=== PATIENT | male | born 1970 | race Caucasian/White ===

== ENCOUNTER 2022-12-21 06:11 | Inpatient (IN) | payer MEDICAID, SELFPAY ==
[2022-12-21] VITALS (46 sets, daily range): BP systolic 53–160; BP diastolic 23–68; PULSE 57–109; RESP 20–39; TEMP 32–37.8; O2SAT 90–100; BMI 26.9
--- NOTE | 2022-12-21 | ECG_ITS ---
Test Reason : high trop Blood Pressure : / mmHG Vent. Rate : 105 BPM Atrial Rate : 105 BPM P-R Int : 154 ms QRS Dur : 088 ms QT Int : 404 ms P-R-T Axes : 068 048 060 degrees QTc Int : 533 ms Sinus tachycardia Prolonged QT Abnormal ECG When compared with ECG of 21-DEC-2022 06:16, Vent. rate has increased BY 36 BPM QRS duration has decreased Borderline criteria for Inferior infarct are no longer Present ST no longer depressed in Anterolateral leads T wave inversion no longer evident in Inferior leads Referred By: Av Lancaster Electronically Signed By:REY LANGE MD
--- NOTE | ~2022-12-21 | CT_ITS ---
EXAMINATION: CT HEAD WITHOUT CONTRAST CLINICAL INFORMATION: Status epilepticus COMPARISON: CT brain 12/23/2022 TECHNIQUE: Contiguous axial imaging was performed from the skull base to vertex without intravenous administration of contrast. This CT examination was performed using dose optimization techniques as appropriate, variously including the following: *Automated exposure control *Adjustment of mA and/or kV according to patient size (this includes techniques or standardized protocols for targeted exams where dose is matched to indication/reason for exam; i.e. extremities or head) *Use of iterative reconstruction technique DLP: 679 mGy-cm FINDINGS: There is no acute intra-axial, extra-axial bleed, masses or midline shift. There is no acute infarction evolution. There is no edema. Carrera to white matter differentiation is maintained normal. The lateral ventricles are symmetrical in size and configuration without enlargement. Bone windows reveal no calvarial abnormality. There is midline deep scalp hyperdensity likely contusion but no calvarial fracture is best visualized on sagittal image 76/8. Bilateral paranasal sinuses and mastoid air cells are well-aerated with diffuse mucoperiosteal thickening sphenoid and right posterior ethmoid sinuses. Minimal mucoperiosteal thickening right maxillary sinus is noted as well. CT/CT head/brain wo IV con IMPRESSION: 1. No acute intracranial process seen. 2. There is midline deep scalp contusion without calvarial fracture. 3. Chronic bilateral sphenoid and right posterior ethmoid sinus inflammatory changes.
--- NOTE | ~2022-12-21 | XR_ITS ---
EXAMINATION: XR CHEST CLINICAL INFORMATION: Hypoxia COMPARISON: 12/21/2022 TECHNIQUE: Frontal view of the chest was obtained. FINDINGS: The ET tube is present about 8 cm above the mark and probably should be advanced. Right IJ catheter with tip in SVC. NG tube with tip at the junction and should be advanced. Heart size normal. No evidence of CHF. Some minimal left basilar atelectasis is present. No consolidation. No pleural effusions. XR/XR chest 1V IMPRESSION: ET tube 8 cm above the mark and should be advanced. NG tube at GE junction and should be advanced.
--- NOTE | ~2022-12-21 | CT_ITS ---
EXAMINATION: CT HEAD WITHOUT CONTRAST CLINICAL INFORMATION: Altered mental status COMPARISON: None TECHNIQUE: Contiguous axial imaging was performed from the skull base to vertex without intravenous administration of contrast. This CT examination was performed using dose optimization techniques as appropriate, variously including the following: *Automated exposure control *Adjustment of mA and/or kV according to patient size (this includes techniques or standardized protocols for targeted exams where dose is matched to indication/reason for exam; i.e. extremities or head) *Use of iterative reconstruction technique DLP: 892 mGy-cm FINDINGS: No acute hemorrhage or mass effect. Carrera/white matter differentiation is maintained. Cisterns are unremarkable. The ventricular system is normal in size. No extra-axial collections observed. Mastoids are well aerated. No calvarial disruption. There is eccentric mucosal thickening/opacification of sphenoid and ethmoid sinuses with some opacification of the nasal cavities. Bilateral cerumen noted in the external auditory canals. CT/CT head/brain wo IV con IMPRESSION: No evidence for acute process. Paranasal sinus opacification as noted above. Opacification of the nasal cavities.
--- NOTE | ~2022-12-21 | MR_ITS ---
EXAMINATION: MR BRAIN WITHOUT CONTRAST CLINICAL INFORMATION: Persistent encephalopathy. COMPARISON: Head CT 12/28/2022 TECHNIQUE: Multiplanar, multisequence imaging of the brain was performed without intravenous contrast. FINDINGS: There is bilaterally symmetric restricted diffusion within the centrum semiovale ovale extending into the cole radiata, posterior limbs of the internal capsule and adjacent gangliocapsular structures with additional restricted diffusion also noted within the posterior corpus callosum. Mildly expansile T2/FLAIR hyperintensity is seen within the bilateral posterior parietal, temporal, and occipital lobes. The ventricles are normal in size without hydrocephalus. The major arterial flow voids are preserved at the skull base. There is fluid in the mastoids and paranasal sinus mucosal thickening. MR/MR head/brain wo con IMPRESSION: Bilateral symmetric restricted diffusion within the centrum semiovale ovale extending into the cole radiata, posterior limbs of the internal capsule, and adjacent gangliocapsular structures. Additional restricted diffusion is seen within the posterior corpus callosum. Expansile T2/FLAIR hyperintensity in the bilateral posterior cerebral hemispheres is also demonstrated. These findings could represent posterior reversible encephalopathy syndrome (with atypical features) or alternatively could be related to encephalopathy of toxic/metabolic/infectious etiologies. Excitotoxic injury from status epilepticus is a consideration but considered less likely.
--- NOTE | ~2022-12-21 | XR_ITS ---
EXAMINATION: XR CHEST CLINICAL INFORMATION: Intubated. NG tube. COMPARISON: None TECHNIQUE: Frontal view of the chest was obtained. FINDINGS: Cardiac silhouette is normal in size. Endotracheal tube terminates approximately 6.7 cm above the level the mark. Enteric tube terminates below the level of the diaphragm, beyond the parameters of today's chest x-ray. The aerated. There is no lobar consolidation. No pleural effusion or pneumothorax. XR/XR chest 1V IMPRESSION: 1. Support apparatus in expected position. 2. No acute pulmonary pathology.
--- NOTE | ~2022-12-21 | US_ITS ---
EXAMINATION: US VENOUS ULTRASOUND WITH DOPPLER LOWER EXTREMITY, BILATERAL CLINICAL INFORMATION: Fever with prolonged bed rest COMPARISON: None TECHNIQUE: Ultrasound of the deep veins is performed from the hip to the calf with compression sonography and color and pulse Doppler assessment. Spectral analysis with color-flow imaging is performed. FINDINGS: RIGHT: There is normal venous compression and respiratory variation and augmented flow. The visualized common femoral vein, superficial femoral vein, profunda femoral vein, popliteal vein, and the trifurcation region shows no evidence of deep venous thrombosis. There is no significant popliteal fossa cyst. LEFT: There is normal venous compression and respiratory variation and augmented flow. The visualized common femoral vein, superficial femoral vein, profunda femoral vein, popliteal vein, and the trifurcation region shows no evidence of deep venous thrombosis. There is no significant popliteal fossa cyst. If the patient's symptoms persist, followup ultrasound in 5 days 7 days might be of value to exclude proximal propagation from a non-visualized calf vein. US/US venous duplex LE BI IMPRESSION: No DVT demonstrated in either lower extremity.
--- NOTE | ~2022-12-21 | US_ITS ---
EXAMINATION: US RETROPERITONEAL LIMITED (RENAL ONLY) CLINICAL INFORMATION: Acute kidney injury. COMPARISON: None TECHNIQUE: Ultrasound of the kidneys was performed FINDINGS: RIGHT KIDNEY: 13.5 x 6.1 x 6.5 cm (SAG x AP x TRV). The kidney is normal in size, contour, and echogenicity. Renal cortical thickness is normal. At the lower pole of the right kidney there is a 5 x 4 x 6 mm echogenic area that does not demonstrate twinkle artifact or shadowing. No definitive calculi or focal parenchymal lesions. No hydronephrosis. LEFT KIDNEY: 12.6 x 6.9 x 6.3 cm (SAG x AP x TRV). The kidney is normal in size, contour, and echogenicity. Renal cortical thickness is normal. No calculi or focal parenchymal lesions. No hydronephrosis. Incidental note made of sludge within the gallbladder. US/US renal BI IMPRESSION: 1. No evidence to suggest obstructive uropathy or any other cause might be contributing to the patient's worsening renal function. 2. Small echogenic focus at the lower pole of the right kidney may represent a small angiomyolipoma or a nonobstructing nonshadowing stone. 3. Incidental note made of sludge within the gallbladder.
--- NOTE | ~2022-12-21 | XR_ITS ---
EXAMINATION: XR CHEST CLINICAL INFORMATION: Increased WOB COMPARISON: X-ray 12/26/2022 TECHNIQUE: Frontal view of the chest was obtained. FINDINGS: Right IJ line redemonstrated, tip in the proximal/mid SVC. Left IJ line/catheter, at the SVC/right atrium junction. An NG tube with the tip in the stomach, site port at the GE junction. This should be advanced. ET tube tip approximately 6 cm above the mark. Monitoring leads overlie the chest. Lateral lung volumes. Patchy hazy opacities in the bilateral mid and lower lungs, new from previous. This could reflect developing infiltrates from infectious/inflammatory process. No significant effusion. No pulmonary edema. No significant pneumothorax is seen. XR/XR chest 1V IMPRESSION: 1. NG tube side-port is at the GE junction. This should be advanced. 2. Endotracheal tube approximately 6 cm above the mark. 3. Bilateral patchy hazy opacities in bilateral lungs. This could represent of infiltrates or infectious/inflammatory process. Recommend follow-up.
--- NOTE | ~2022-12-21 | XR_ITS ---
EXAMINATION: XR CHEST CLINICAL INFORMATION: TLC placement. COMPARISON: Chest 12/21/2022. TECHNIQUE: Frontal view of the chest was obtained. FINDINGS: The lungs are well-expanded and clear of acute pneumonic process. The heart size and pulmonary vascularity is normal. There is a right jugular central catheter with its tip in mid SVC. No gross bony abnormality seen. XR/XR chest 1V IMPRESSION: 1. Right jugular central catheter tip in mid SVC. Endotracheal tube and enteric tube are in satisfactory position. 2. No acute cardiopulmonary process seen.
--- NOTE | ~2022-12-21 | XR_ITS ---
EXAMINATION: XR CHEST CLINICAL INFORMATION: New dialysis catheter COMPARISON: 12/25/2022 TECHNIQUE: Frontal view of the chest was obtained. FINDINGS: Since yesterday's exam with new left internal jugular dialysis catheter has been placed with its tip at the SVC/RA junction. There is no pneumothorax. A right IJ line remains in place with its tip in the SVC. An NG tube has its tip just within the stomach with the side-port at the GE junction. This should be advanced. ET tube has its tip 6.6 cm above the mark. Heart size normal. No evidence of CHF, infiltrates, effusions or lung masses. XR/XR chest 1V IMPRESSION: 1. New left internal jugular dialysis catheter in good position with no complication. 2. NG tube should be advanced. 3. ET tube 6.6 cm above the mark.
[2022-12-21] MEDS: Dextrose 50 % 25 GM/50 ML SYRINGE IVPUSH (06:16)
--- NOTE | 2022-12-21 06:16 | ECG_ITS ---
Test Reason : OD Blood Pressure : / mmHG Vent. Rate : 069 BPM Atrial Rate : 069 BPM P-R Int : 188 ms QRS Dur : 110 ms QT Int : 484 ms P-R-T Axes : 056 032 003 degrees QTc Int : 518 ms Poor data quality Normal sinus rhythm Possible Left atrial enlargement Possible Inferior infarct , age undetermined Prolonged QT Abnormal ECG No previous ECGs available Referred By: Venus Cunningham Electronically Signed By:REY LANGE MD
[2022-12-21] MEDS: Naloxone HCl 2 MG/2 ML SYRINGE IVPUSH (06:17)
[2022-12-21] MEDS: 0.9 % Sodium Chloride 1,000 ML 999 ML IV (06:18)
[2022-12-21] MEDS: Magnesium Sulfate/H2O 2 GM/50 ML PIGGYBACK IV (06:20)
[2022-12-21] MEDS: Sodium Bicarbonate 8.4% 50 MEQ/50 ML SYRINGE IVPUSH (06:20)
[2022-12-21 06:23] LABS: MANUAL DIFF FLAG NO
[2022-12-21 06:26] LABS: Basophils Absolute Auto 0.1 X10*3/uL (0.0-0.2); Basophils Percent Auto 0.6 % (0-2); Eosinophils Percent Auto 0.2 % (0-4); Hematocrit 50.8 % (42.0-52.0); Hemoglobin 15.4 g/dl (14.0-18.0); Imm Gran Abs Auto 0.21 X10*3/uL (0.00-0.03); Imm Gran Pct Auto 1.7 % (0.0-0.4); Lymphocytes Absolute Auto 1.9 X10*3/uL (1.2-4.9); Lymphocytes Percent Auto 14.8 % (20-40); Mean Corpuscular HGB Conc 30.3 g/dl (31.0-36.0); Mean Platelet Volume 10.4 fL (9.4-12.4); Monocytes Absolute Auto 1.3 X10*3/uL (0.1-1.2); Monocytes Percent Auto 10.5 % (2-11); NRBC Pct Auto 0.4 /100WBC (0.0-0.2); Neutrophils Absolute Auto 9.2 x10*3/uL (2.0-8.3); Neutrophils Percent Auto 72.2 % (45-73); Platelet Count 175 X10*3/uL (160-400); Red Blood Count 4.53 X10*6/uL (4.60-5.80); Red Cell Distribution Width 12.9 % (11.0-16.0); White Blood Count 12.7 X10*3/uL (4.8-10.8)
[2022-12-21 06:29] LABS: Mean Corpuscular Volume 112.1 fL (80.0-98.0)
[2022-12-21 06:37] LABS: INTERNATIONAL NORM RATIO 1.6 (0.9-1.1); Prothrombin Time 19.1 SEC (10.0-13.1)
[2022-12-21] MEDS: Norepinephrine Bitartrate/D5W 8 MG/250 ML PLAST..BAG 135 MG IV (06:45)
[2022-12-21 06:46] LABS: Alanine Aminotransferase 294 U/L (0-40); Albumin Level 4.4 g/dL (3.5-5.0); Alkaline Phosphatase 158 U/L (39-117); Anion Gap 39 (12-20); Aspartate Amino Transferase 509 U/L (5-37); Bilirubin Total 1.3 mg/dL (0.0-1.0); Blood Urea Nitrogen 15 mg/dL (9-16); Calcium 9.7 mg/dL (8.4-10.2); Carbon Dioxide 13 mmol/L (22-29); Chloride 101 mmol/L (96-108); Estimated Glomerular Filt Rate 24; Ethanol 227 mg/dL; Glucose Random 7 mg/dL (60-115); Potassium 5.4 mmol/L (3.3-5.1); Sodium 148 mmol/L (135-145); Total Protein 8.2 g/dL (6.5-8.0)
[2022-12-21 06:48] LABS: Troponin-I High Sensitivity 52.6 ng/L (<3.5-35.0)
[2022-12-21 06:49] LABS: Glucose, Whole Blood 100 mg/dL (60-115)
[2022-12-21 06:49] LABS: Glucose, Whole Blood < 10 mg/dL (60-115)
--- NOTE | 2022-12-21 06:58 | ED_ITS ---
HPI - CPR General Chief Complaint: Cardiac Arrest/CPR Stated Complaint: Cardiac arrest Time Seen by Provider: 12/21/22 06:15 Source: EMS Mode of arrival: EMS History of Present Illness HPI narrative: This is a 52-year-old male who arrives via EMS after they were called by his roommate who stated that patient had been snoring for hours?. Patient is unable to provide history as he is currently intubated, EMS states that on arrival they found patient in PE a administered a total of 8 mg of Narcan as the roommate had endorsed patient was known to use heroin, patient was also intubated with 2 rounds of epi provided and they regained ROSC on arrival to this hospital. Related Data Allergies Allergy/AdvReac Type Severity Reaction Status Date / Time Unable to Assess Allergy Verified 12/21/22 06:15 Review of Systems Review of Systems: Yes unobtainable due to endotracheal tube PMFSH Past Medical History Source: nursing notes reviewed Social History Social History Patient Tobacco Use Status: Tobacco use Unknown Advance Directives: No Advance Directives Information Provided: No Physical Exam Vital Signs: Vital Signs: Last Vital Signs Pulse 86 12/21/22 07:46 Resp 30 H 12/21/22 07:46 BP 150/50 H 12/21/22 07:46 Pulse Ox 96 12/21/22 07:46 O2 Del Method 12/21/22 07:14 FiO2 30 12/21/22 07:46 BMI result Body Mass Index 26.9 VITAL SIGNS: Reviewed. GENERAL: Well developed, well nourished, intubated HEAD: Normocephalic/atraumatic EYES: PERRLA EARS: Ext canals without abnormality NOSE: Nares patent bilateral OROPHARYNX: no oral lesions noted, posterior pharynx clear NECK: Supple, no adenopathy, no noted injuries LUNGS: Normal breath sounds. No adventitious sounds or accessory muscle use. CARDIOVASCULAR: Regular rate and rhythm without noted murmurs, no JVD or lower extremity edema. ABDOMEN: Soft, non-tender, non-distended with bowel sounds. BACK: No noted injuries GLUTEUS: Area of ecchymosis noted to right buttock MUSCULOSKELETAL: No tenderness, deformities, or effusions noted on gross inspection. EXTREMITIES: No cyanosis, clubbing or edema; RIGHT UPPER EXTREMITY: Ecchymotic area noted to right biceps. SKIN: Inspection of the skin reveals no rashes, abrasions, warm, pink NEUROLOGIC: Intubated not sedated and not responding, GCS-4T BEDSIDE ULTRASOUND: Good squeeze, no pericardial effusion, RV< LV Medications Administered Generic Name Dose Route Start Last Admin Trade Name Kyreeq PRN Reason Stop Dose Admin Heparin Sodium (Porcine) 5,000 unit 12/21/22 07:00 12/21/22 07:36 Heparin Sodium,Porcine 5,000 Unit/Ml Vial SUBCUT 5,000 unit Q8H TERESA Administration Norepinephrine Bitartrate 8 mg in 250 mls @ 1,350 mls/hr 12/21/22 06:30 12/21/22 07:35 Levophed IV 0.78 mcg/kg/min .Q12M TERESA 131.63 mls/hr Titration Protocol 8 MCG/KG/MIN Dextrose 1,000 mls @ 50 mls/hr 12/21/22 07:00 12/21/22 07:16 D10 IVCONT 50 mls/hr .Q20H TERESA Administration Propofol 1,000 mg in 100 mls @ 0 mls/hr 12/21/22 07:00 12/21/22 07:46 Diprivan IVCONT 30 mcg/kg/min .Q0M TERESA 16.2 mls/hr Administration Protocol Per Protocol Discontinued Medications Generic Name Dose Route Start Last Admin Trade Name Alison PRN Reason Stop Dose Admin Dextrose 25 gm 12/21/22 06:16 12/21/22 06:16 Dextrose 50 % 25 Gm/50 Ml Syringe IVPUSH 12/21/22 06:17 25 gm ONCE ONE Administration Sodium Chloride 1,000 mls @ 999 mls/hr 12/21/22 06:30 12/21/22 07:56 Ns IV 12/21/22 07:30 Infused .Q1H1M TERESA Infusion Magnesium Sulfate 2 gm in 50 mls @ 150 mls/hr 12/21/22 06:17 12/21/22 07:56 Magnesium Sulfate/H2o IV 12/21/22 06:36 Infused ONCE ONE Infusion Naloxone HCl 2 mg 12/21/22 06:15 12/21/22 06:17 Naloxone Hcl 2 Mg/2 Ml Syringe IVPUSH 12/21/22 06:16 2 mg ONCE ONE Administration Sodium Bicarbonate 50 meq 12/21/22 06:17 12/21/22 06:20 Sodium Bicarbonate 8.4% 50 Meq/50 Ml Syringe IVPUSH 12/21/22 06:18 50 meq ONCE ONE Administration Medical Decision Making Medical Decision Making [facility] Narrative: ROSC on arrival but patient noted to be hypotensive despite having pain could, warm, dry skin with easily palpable pulses, Levophed drip started, patient also noted to be hypoglycemic and given 1 amp of D50, patient also received 2g magnesium sulfate after review of EKG demonstrated possible peaked T-waves, 1 amp bicarb also administered, patient's blood sugar responded well to the D 50 but then began to down trend once again and so he was started on a D10 drip at 50 cc/HR I have reviewed all lab work which is consistent with patient being unresponsive: Acidotic, shock liver, VITA, hyperkalemic, intoxicated, and although patient does have elevated troponins this is likely type to and not primary event. BAL-[id number] Differential Diagnosis Please see the discussion above Consult Healthcare Provider Management of the patient was discussed with: [employer]icated Truck [employer] Discussed with cardiovascular operating room nurse, Dr Puckett who accepts admission. Lab Data Please see discussion above 12/21/22 06:18 12/21/22 06:18 Labs: Lab Results 12/21/22 12/21/22 12/21/22 Range/Units 06:16 06:18 06:18 WBC 12.7 H (4.8-10.8) X10*3/uL RBC 4.53 L (4.60-5.80) X10*6/uL Hgb 15.4 (14.0-18.0) g/dl Hct 50.8 (42.0-52.0) % MCV 112.1 H (80.0-98.0) fL MCH 34.0 H (27.0-33.0) pg MCHC 30.3 L (31.0-36.0) g/dl RDW 12.9 (11.0-16.0) % Plt Count 175 (160-400) X10*3/uL MPV 10.4 (9.4-12.4) fL Immature Gran % (Auto) 1.7 H (0.0-0.4) % Neut % (Auto) 72.2 (45-73) % Lymph % (Auto) 14.8 L (20-40) % [place] % (Auto) 10.5 (2-11) % Eos % (Auto) 0.2 (0-4) % Baso % (Auto) 0.6 (0-2) % Lymph # (Auto) 1.9 (1.2-4.9) X10*3/uL [place] # (Auto) 1.3 H (0.1-1.2) X10*3/uL Eos # (Auto) 0.0 (0.0-0.4) X10*3/uL Baso # (Auto) 0.1 (0.0-0.2) X10*3/uL Abs Immat Gran (auto) 0.21 H (0.00-0.03) X10*3/uL Absolute Neuts (auto) 9.2 H (2.0-8.3) x10*3/uL Absolute Nucleated RBC 0.050 H (0.0-0.012) X10*3/uL Nucleated RBC % (auto) 0.4 H (0.0-0.2) /100WBC PT (10.0-13.1) SEC INR (0.9-1.1) Sodium 148 H (135-145) mmol/L Potassium 5.4 H (3.3-5.1) mmol/L Chloride 101 (96-108) mmol/L Carbon Dioxide 13 L (22-29) mmol/L Anion Gap 39 H (12-20) BUN 15 (9-16) mg/dL Creatinine 2.84 H (0.5-1.4) mg/dL Estim Creat Clear Calc TNP Estimated GFR 24 POC Glucose < 10 L* (60-115) mg/dL Random Glucose 7 L* (60-115) mg/dL Calcium 9.7 (8.4-10.2) mg/dL Total Bilirubin 1.3 H (0.0-1.0) mg/dL AST 509 H (5-37) U/L ALT 294 H (0-40) U/L Alkaline Phosphatase 158 H (39-117) U/L Total Creatine Kinase 291 H (38-174) U/L Troponin I High Sens (<3.5-35.0) ng/L Total Protein 8.2 H (6.5-8.0) g/dL Albumin 4.4 (3.5-5.0) g/dL Ethyl Alcohol 227 mg/dL 12/21/22 12/21/22 12/21/22 Range/Units 06:18 06:18 06:21 WBC (4.8-10.8) X10*3/uL RBC (4.60-5.80) X10*6/uL Hgb (14.0-18.0) g/dl Hct (42.0-52.0) % MCV (80.0-98.0) fL MCH (27.0-33.0) pg MCHC (31.0-36.0) g/dl RDW (11.0-16.0) % Plt Count (160-400) X10*3/uL MPV (9.4-12.4) fL Immature Gran % (Auto) (0.0-0.4) % Neut % (Auto) (45-73) % Lymph % (Auto) (20-40) % [place] % (Auto) (2-11) % Eos % (Auto) (0-4) % Baso % (Auto) (0-2) % Lymph # (Auto) (1.2-4.9) X10*3/uL [place] # (Auto) (0.1-1.2) X10*3/uL Eos # (Auto) (0.0-0.4) X10*3/uL Baso # (Auto) (0.0-0.2) X10*3/uL Abs Immat Gran (auto) (0.00-0.03) X10*3/uL Absolute Neuts (auto) (2.0-8.3) x10*3/uL Absolute Nucleated RBC (0.0-0.012) X10*3/uL Nucleated RBC % (auto) (0.0-0.2) /100WBC PT 19.1 H (10.0-13.1) SEC INR 1.6 H (0.9-1.1) Sodium (135-145) mmol/L Potassium (3.3-5.1) mmol/L Chloride (96-108) mmol/L Carbon Dioxide (22-29) mmol/L Anion Gap (12-20) BUN (9-16) mg/dL Creatinine (0.5-1.4) mg/dL Estim Creat Clear Calc Estimated GFR POC Glucose 100 (60-115) mg/dL Random Glucose (60-115) mg/dL Calcium (8.4-10.2) mg/dL Total Bilirubin (0.0-1.0) mg/dL AST (5-37) U/L ALT (0-40) U/L Alkaline Phosphatase (39-117) U/L Total Creatine Kinase (38-174) U/L Troponin I High Sens 52.6 H (<3.5-35.0) ng/L Total Protein (6.5-8.0) g/dL Albumin (3.5-5.0) g/dL Ethyl Alcohol mg/dL Independent Interpretation I performed an independent interpretation of an: EKG Interpretation: NSR, HR-69, no STEMI, LA within normal limits, QRS-110, QTC -518 Critical Care Time Critical Care Time Critical Care Time: Yes Total Critical Care Time: 75 Attestation: I personally attest to this time spent taking care of the patient. Discharge Plan Discharge Clinical Impression: Cardiac arrest, Substance use disorder, Alcohol intoxication, Encephalopathy, Hypoglycemia Patient Disposition: Admitted As Inpatient
[2022-12-21] MEDS: Dextrose 10 % 1,000 ML 50 ML IVCONT (07:16)
--- NOTE | 2022-12-21 07:20 | PC.NURSE ---
this rn assumed care of patient. temp sensing martin cath placed- 15ml output of yellow urine. continued norepi drip at 0.5mcg, d10 started at 50/hr per emar. pt has soft restraints placed by prior shift. bilateral 18g in ac- placed by previous shift. vss 81hr, 98% 60 fio2 18/450tv/5peep
--- NOTE | 2022-12-21 07:24 | PC.NURSE ---
Pt brought to ER via EMS. EMS reported cardiac arrest and ROSC was achieved as EMS pulled into the parking lot. Pt was unconscious and intubated with a 16g IV in the left AC. Pt was transferred to ER stretcher and report was given by EMS. Please see code sheet for further details.
[2022-12-21 07:32] LABS: ABG Base Excess -26.3 mmol/L; ABG HCO3 7 mmol/L (22-26); ABG pCO2 44 mmHg (32-45); ABG pH 6.83 (7.35-7.45); ABG pO2 158 mmHg (83-108)
[2022-12-21] MEDS: Heparin Sodium,Porcine 5,000 UNIT/ML VIAL 5000 UNIT SUBCUT ×2 (07:36→15:29)
--- NOTE | 2022-12-21 07:42 | PC.NURSE ---
Soft restraints applied to upper extremities at 06:45
[2022-12-21] MEDS: propofoL 1,000 MG/100 ML VIAL 16.2 MG IVCONT ×3 (07:46→17:53)
--- NOTE | 2022-12-21 07:50 | PC.NURSE ---
100meq of sodium bicarb iv given per md chopra verbal order
[2022-12-21 08:14] LABS: Glucose, Whole Blood 108 mg/dL (60-115)
[2022-12-21 08:14] LABS: Glucose, Whole Blood 92 mg/dL (60-115)
[2022-12-21] MEDS: Sodium Bicarbonate 8.4% 150 MEQ in Dextrose 5 % 850 ML 100 MEQ IV ×2 (08:26→17:25)
[2022-12-21] MEDS: Norepinephrine Bitartrate/D5W 8 MG/250 ML PLAST..BAG 101.25 MG IV (08:35)
[2022-12-21] MEDS: Famotidine/PF 20 MG/2 ML VIAL IVPUSH (08:42)
[2022-12-21] MEDS: Chlorhexidine Gluc Oral Rinse 15 ML MOUTHWASH BUCCAL ×3 (08:42→20:58)
[2022-12-21] MEDS: Sodium Bicarbonate 8.4% 50 MEQ/50 ML VIAL 100 MEQ IVPUSH ×2 (09:04→13:30)
[2022-12-21 09:17] LABS: Appearance Urine Turbid; Color Urine Dark Yellow; Glucose Urine UA Negative (Negative); Leukocyte Esterase Urine Moderate (2+) (Negative); Nitrite Urine Negative (Negative); PH 5.5 (5.0-9.0); UMIC TRIGGER UACC YES; Urine Blood Moderate (2+) (Negative); Urine Ketones Trace mg/dL (Negative); Urine Protein 300 (3+) mg/dL (Neg-Trace)
[2022-12-21 09:25] LABS: Bacteria Urine Trace (None Seen); Hyaline Casts Urine >20 /LPF (0-2); RBC Urine >20 /HPF (0-2); UACC Culture Trigger YES; WBC Urine 21-50 /HPF (0-5)
[2022-12-21 09:32] LABS: Amphetamine Screen Urine Not Detected (Not Detect); Barbiturates, Urine Not Detected (Not Detect); Benzodiazepines Screen Urine Not Detected (Not Detect); Cannabinoid Screen Urine Not Detected (Not Detect); Cocaine Screen Urine POSITIVE (Not Detect); Fentanyl, urine POSITIVE (Not Detect); Opiate Screen Urine POSITIVE (Not Detect); Phencyclidine Screen Urine Not Detected (Not Detect)
[2022-12-21 09:37] LABS: COVID-19 Test Negative (Negative); IDNOW Serial# BCCEAD1C
[2022-12-21 09:52] LABS: VBG Base Excess -24.6 mmol/L; VBG HCO3 6 mmol/L (22-26); VBG pCO2 28 mmHg; VBG pH 6.95 (7.32-7.43); VBG pO2 64 mmHg
--- NOTE | 2022-12-21 09:56 | PM.CCHP ---
History of Present Illness Date of Service: 12/21/22 Chief Complaint: Cardiac arrest 52-year-old gentleman with unclear past medical history admitted on 12/21/2022 with out of hospital PEA cardiac arrest with unclear down time with returned spontaneous circulation on arrival to emergency room, intubated during the CPR and transferred to intensive care unit. Patient with profound metabolic lactic acidosis, ischemic hepatitis, and acute renal failure requiring high dose vasopressor support. Review of Systems Review of Systems: Yes unobtainable due to endotracheal tube, Unobtainable due to mental condition and Unobtainable due to mental status [facility] Social History Social History Household Members: Unknown / Unable to assess Housing: Unknown / Unable to assess Unable to assess alcohol history related to: Unable to respond Patient Tobacco Use Status: Tobacco use Unknown Use of substances other than those prescribed or required for medical reasons: Unable to respond Currently Displaying Signs/Symptoms of Drug Intoxication Withdrawal: No Spiritual Healthcare Practices: unable to assess Yazidi Healthcare Practices: unable to assess Cultural Healthcare Practices: unable to assess Advance Directives: No Advance Directives Information Provided: No Advance Directives on File: No Nutrition Risks: No Nutritional Risk Meds Allergies Allergy/AdvReac Type Severity Reaction Status Date / Time Unable to Assess Allergy Verified 12/21/22 06:15 Active Medications: Current Medications Chlorhexidine Gluconate (Chlorhexidine Gluc Oral Rinse 15 Ml Mouthwash) 15 ml BUCCAL TID [facility] Last Admin: 12/21/22 08:42 Dose: 15 ml Dextrose (Dextrose 50 % 25 Gm/50 Ml Syringe) 25 gm IVPUSH Q15M PRN; Protocol PRN Reason: per Hypoglycemia Standing Ord. Famotidine (Famotidine/Pf 20 Mg/2 Ml Vial) 20 mg IVPUSH DAILY [facility] Last Admin: 12/21/22 08:42 Dose: 20 mg Heparin Sodium (Porcine) (Heparin Sodium,Porcine 5,000 Unit/Ml Vial) 5,000 unit SUBCUT Q8H [facility] Last Admin: 12/21/22 07:36 Dose: 5,000 unit Dextrose (D10) 1,000 mls @ 50 mls/hr IVCONT .Q20H [facility] Last Admin: 12/21/22 07:16 Dose: 50 mls/hr Sodium Bicarbonate 150 meq/ (Dextrose) 1,000 mls @ 100 mls/hr IV .Q10H TERESA Last Admin: 12/21/22 08:26 Dose: 100 mls/hr Propofol (Diprivan) 1,000 mg in 100 mls @ 0 mls/hr IVCONT .Q0M [facility]; Protocol Last Admin: 12/21/22 07:46 Dose: 30 mcg/kg/min, 16.2 mls/hr Norepinephrine Bitartrate (Levophed) 8 mg in 250 mls @ 0 mls/hr IV .Q0M TERESA; Protocol Last Admin: 12/21/22 08:35 Dose: 0.6 mcg/kg/min, 101.25 mls/hr Home Medications Medication Instructions Recorded Confirmed Last Taken Type Unobtainable 12/21/22 12/21/22 Unknown History Physical Exam Vital Signs: Vital Signs: Last Vital Signs Temp 92.3 F L 12/21/22 09:00 Pulse 86 12/21/22 09:00 Resp 31 H 12/21/22 09:00 BP 117/42 L 12/21/22 09:00 Pulse Ox 100 12/21/22 09:00 O2 Del Method 12/21/22 09:00 FiO2 30 12/21/22 09:00 BMI result Body Mass Index 26.9 Const: General: other (comatose) Eyes: Sclerae: sclerae normal Pupils: Pupils not reactive and Pinpoint pupils bilaterally Neck: Neck: Yes no lymphadenopathy, Yes trachea midline and Yes supple Resp: Auscultation: clear to auscultation bilaterally Cardio: Rate: regular rate Rhythm: regular rhythm Heart sounds: no gallops, no murmurs and no rubs GI: Palpation (GI): Soft to palpation and Other GI palpation findings present ( Nontender) Auscultation: normal bowel sounds Extrem: General: Yes no pedal edema, No clubbing and No cyanosis Results Labs 12/21/22 06:18 12/21/22 06:18 Labs: Laboratory Results - last 24 hr 12/21/22 12/21/22 12/21/22 06:16 06:18 06:18 MCV 112.1 H MCH 34.0 H MCHC 30.3 L RDW 12.9 Plt Count 175 MPV 10.4 Immature Gran % (Auto) 1.7 H Neut % (Auto) 72.2 Lymph % (Auto) 14.8 L [place] % (Auto) 10.5 Eos % (Auto) 0.2 Baso % (Auto) 0.6 Lymph # (Auto) 1.9 [place] # (Auto) 1.3 H Eos # (Auto) 0.0 Baso # (Auto) 0.1 Abs Immat Gran (auto) 0.21 H Absolute Neuts (auto) 9.2 H Absolute Nucleated RBC 0.050 H Nucleated RBC % (auto) 0.4 H PT INR O2 Saturation ABG pH at Pt Temp ABG pCO2 at Pt Temp ABG pO2 at Pt Temp ABG HCO3 ABG Base Excess (Actual) VBG pH VBG pCO2 VBG pO2 VBG HCO3 VBG O2 Saturation VBG Base Excess Anion Gap 39 H Estim Creat Clear Calc TNP Estimated GFR 24 POC Glucose < 10 L* Random Glucose 7 L* Calcium 9.7 Total Bilirubin 1.3 H AST 509 H ALT 294 H Alkaline Phosphatase 158 H Total Creatine Kinase 291 H Troponin I High Sens Total Protein 8.2 H Albumin 4.4 Urine Color Urine Appearance Urine pH Ur Specific [place] Urine Protein Urine Glucose (UA) Urine Ketones Urine Blood Urine Nitrite Ur Leukocyte Esterase Urine RBC Urine WBC Ur Squamous Epith Cells Urine Bacteria Hyaline Casts Urine Opiates Screen Urine Fentanyl Screen Ur Barbiturates Screen Ur Phencyclidine Scrn Ur Amphetamines Screen U Benzodiazepines Scrn Urine Cocaine Screen U Marijuana (THC) Screen Ethyl Alcohol 227 COVID-19 (HECTOR) COVID-19 Clin Com 12/21/22 12/21/22 12/21/22 06:18 06:18 06:21 MCV MCH MCHC RDW Plt Count MPV Immature Gran % (Auto) Neut % (Auto) Lymph % (Auto) [place] % (Auto) Eos % (Auto) Baso % (Auto) Lymph # (Auto) [place] # (Auto) Eos # (Auto) Baso # (Auto) Abs Immat Gran (auto) Absolute Neuts (auto) Absolute Nucleated RBC Nucleated RBC % (auto) PT 19.1 H INR 1.6 H O2 Saturation ABG pH at Pt Temp ABG pCO2 at Pt Temp ABG pO2 at Pt Temp ABG HCO3 ABG Base Excess (Actual) VBG pH VBG pCO2 VBG pO2 VBG HCO3 VBG O2 Saturation VBG Base Excess Anion Gap Estim Creat Clear Calc Estimated GFR POC Glucose 100 Random Glucose Calcium Total Bilirubin AST ALT Alkaline Phosphatase Total Creatine Kinase Troponin I High Sens 52.6 H Total Protein Albumin Urine Color Urine Appearance Urine pH Ur Specific [place] Urine Protein Urine Glucose (UA) Urine Ketones Urine Blood Urine Nitrite Ur Leukocyte Esterase Urine RBC Urine WBC Ur Squamous Epith Cells Urine Bacteria Hyaline Casts Urine Opiates Screen Urine Fentanyl Screen Ur Barbiturates Screen Ur Phencyclidine Scrn Ur Amphetamines Screen U Benzodiazepines Scrn Urine Cocaine Screen U Marijuana (THC) Screen Ethyl Alcohol COVID-19 (HECTOR) COVID-19 [place] Com 12/21/22 12/21/22 12/21/22 06:46 07:26 07:31 MCV MCH MCHC RDW Plt Count MPV Immature Gran % (Auto) Neut % (Auto) Lymph % (Auto) [place] % (Auto) Eos % (Auto) Baso % (Auto) Lymph # (Auto) [place] # (Auto) Eos # (Auto) Baso # (Auto) Abs Immat Gran (auto) Absolute Neuts (auto) Absolute Nucleated RBC Nucleated RBC % (auto) PT INR O2 Saturation 98.0 ABG pH at Pt Temp 6.83 L* ABG pCO2 at Pt Temp 44 ABG pO2 at Pt Temp 158 H ABG HCO3 7 L ABG Base Excess (Actual) -26.3 VBG pH VBG pCO2 VBG pO2 VBG HCO3 VBG O2 Saturation VBG Base Excess Anion Gap Estim Creat Clear Calc Estimated GFR POC Glucose 92 108 Random Glucose Calcium Total Bilirubin AST ALT Alkaline Phosphatase Total Creatine Kinase Troponin I High Sens Total Protein Albumin Urine Color Urine Appearance Urine pH Ur Specific [place] Urine Protein Urine Glucose (UA) Urine Ketones Urine Blood Urine Nitrite Ur Leukocyte Esterase Urine RBC Urine WBC Ur Squamous Epith Cells Urine Bacteria Hyaline Casts Urine Opiates Screen Urine Fentanyl Screen Ur Barbiturates Screen Ur Phencyclidine Scrn Ur Amphetamines Screen U Benzodiazepines Scrn Urine Cocaine Screen U Marijuana (THC) Screen Ethyl Alcohol COVID-19 (HECTOR) COVID-19 [place] Com 12/21/22 12/21/22 12/21/22 09:03 09:03 09:03 MCV MCH MCHC RDW Plt Count MPV Immature Gran % (Auto) Neut % (Auto) Lymph % (Auto) [place] % (Auto) Eos % (Auto) Baso % (Auto) Lymph # (Auto) [place] # (Auto) Eos # (Auto) Baso # (Auto) Abs Immat Gran (auto) Absolute Neuts (auto) Absolute Nucleated RBC Nucleated RBC % (auto) PT INR O2 Saturation ABG pH at Pt Temp ABG pCO2 at Pt Temp ABG pO2 at Pt Temp ABG HCO3 ABG Base Excess (Actual) VBG pH VBG pCO2 VBG pO2 VBG HCO3 VBG O2 Saturation VBG Base Excess Anion Gap Estim Creat Clear Calc Estimated GFR POC Glucose Random Glucose Calcium Total Bilirubin AST ALT Alkaline Phosphatase Total Creatine Kinase Troponin I High Sens Total Protein Albumin Urine Color Dark Yellow Urine Appearance Turbid Urine pH 5.5 Ur Specific [place] 1.020 Urine Protein 300 (3+) H Urine Glucose (UA) Negative Urine Ketones Trace Urine Blood Moderate (2+) H Urine Nitrite Negative Ur Leukocyte Esterase Moderate (2+) H Urine RBC >20 H Urine WBC 21-50 H Ur Squamous Epith Cells 6-10 Urine Bacteria Trace Hyaline Casts >20 Urine Opiates Screen POSITIVE H Urine Fentanyl Screen POSITIVE H Ur Barbiturates Screen Not Detected Ur Phencyclidine Scrn Not Detected Ur Amphetamines Screen Not Detected U Benzodiazepines Scrn Not Detected Urine Cocaine Screen POSITIVE H U Marijuana (THC) Screen Not Detected Ethyl Alcohol COVID-19 (HECTOR) Negative COVID-19 Clin Com See Note 12/21/22 09:44 MCV MCH MCHC RDW Plt Count MPV Immature Gran % (Auto) Neut % (Auto) Lymph % (Auto) [place] % (Auto) Eos % (Auto) Baso % (Auto) Lymph # (Auto) [place] # (Auto) Eos # (Auto) Baso # (Auto) Abs Immat Gran (auto) Absolute Neuts (auto) Absolute Nucleated RBC Nucleated RBC % (auto) PT INR O2 Saturation ABG pH at Pt Temp ABG pCO2 at Pt Temp ABG pO2 at Pt Temp ABG HCO3 ABG Base Excess (Actual) VBG pH 6.95 L* VBG pCO2 28 VBG pO2 64 VBG HCO3 6 L VBG O2 Saturation 81.0 VBG Base Excess -24.6 Anion Gap Estim Creat Clear Calc Estimated GFR POC Glucose Random Glucose Calcium Total Bilirubin AST ALT Alkaline Phosphatase Total Creatine Kinase Troponin I High Sens Total Protein Albumin Urine Color Urine Appearance Urine pH Ur Specific [place] Urine Protein Urine Glucose (UA) Urine Ketones Urine Blood Urine Nitrite Ur Leukocyte Esterase Urine RBC Urine WBC Ur Squamous Epith Cells Urine Bacteria Hyaline Casts Urine Opiates Screen Urine Fentanyl Screen Ur Barbiturates Screen Ur Phencyclidine Scrn Ur Amphetamines Screen U Benzodiazepines Scrn Urine Cocaine Screen U Marijuana (THC) Screen Ethyl Alcohol COVID-19 (HECTOR) COVID-19 Clin Com Imaging Radiologist's Impressions: Impressions Chest X-Ray 12/21/22 07:49 IMPRESSION: 1. Support apparatus in expected position. 2. No acute pulmonary pathology. Assessment and Plan (1) Cardiac arrest: Status: Acute (2) Polysubstance abuse: Status: Acute (3) Acute respiratory failure: Status: Acute (4) Ischemic hepatitis: Status: Acute (5) Alcohol intoxication: Status: Acute (6) Acute renal failure: Status: Acute (7) Encephalopathy: Status: Acute Plan Assessment: 52-year-old gentleman admitted with PEA out of hospital cardiac arrest with unclear down time with returned spontaneous circulation upon arrival to emergency room, intubated during the CPR Plan: Neuro: Comatose. Polysubstance abuse. No induced hypothermia secondary to hemodynamic instability. Cardiac: PEA out of hospital cardiac arrest with unclear down time. Requires high-dose vasopressor support. 2D echocardiogram is pending. Possible etiology is aspiration. Pulmonary: Acute respiratory failure, intubated during the CPR. Possible underlying pulmonary aspiration. Renal: Acute renal failure secondary to cardiac arrest. Non oliguric. Continue to monitor renal indices and urine output. Lactic metabolic acidosis secondary to cardiac arrest, continue on bicarbonate drip. Endo: No acute issues. GI: Ischemic hepatitis after cardiac arrest, continue to monitor. ID: No evidence of sepsis. Hypotension, elevated lactate, and end-organ damage gil secondary to cardiac arrest. Antibiotics are empiric. Heme/Onc: No acute issues. Psych: No acute issues. Miscellaneous: No family/HCP contacts are available at this time. Prophylaxis: Heparin Diet: Nothing by mouth Critical care time spent: 90 minutes excluding separately billable procedures Time Spent With Patient Time: Total time managing care of this patient today ____ minutes. Critical Care Time Critical Care Time (minutes): 90
--- NOTE | 2022-12-21 10:00 | CA_ITS ---
Transthoracic Echocardiogram Patient (Last, First, Middle): Gene Arnett, Gender: Male Date of : 1970 Age: 52 Procedure Date: 12/21/2022 Procedure Type: Transthoracic Echocardiogram Location: ICU Height: 182.88 cm Weight: 89.81 kg BSA: 2.12 m2 Heart Rate: 92 bpm BP: 117 / 46 mmHg German Tutor: SB Referring MD: Keith Puckett MD Paper Slitter: Braxton Rob MD Symptoms: s/p cardiac arrest Study Quality: Technically Difficult ECG Rhythm: Sinus Conclusions: - 1. Technically limited study due to limited window and patient on ventilator 2. LV systolic function appears normal with normal diastolic function 3. RV systolic function appears normal by TAPSE 4. Limited visualization cardiac valves with normal cardiac valvular Doppler 5. No gross pericardial effusion Findings Procedure Information Contrast agent, definity, is being given per protocol without apparent complications. The quality of the study was technically difficult. The study quality is limited by the presence of a ventilator. Left Ventricle The left ventricle was not well visualized. Normal left ventricular cavity size. The left ventricular systolic function is normal. The visually estimated ejection fraction is between 65-70%. Spectral Doppler is indicative of a normal filling pattern. There is mild septal asymmetric hypertrophy. Right Ventricle The right ventricle was not well visualized. There is normal right ventricular systolic function. Atria The left atrium is normal in size. Interatrial shunt cannot be excluded. The right atrium is normal in size. Aortic Valve The aortic valve was not well visualized. There is no aortic valve stenosis. There is no aortic valve regurgitation. Mitral Valve The mitral valve was not well visualized. There is mild mitral annular calcification. There is trace mitral valve regurgitation. There is no mitral valve stenosis. Pulmonic Valve The pulmonic valve was not well visualized. Tricuspid Valve The tricuspid valve was not well visualized. Tricuspid regurgitation envelope is inadequate for calculation of right ventricular systolic pressure. Great Vessels All visible segments of the aorta are normal in size. The pulmonary artery was not well visualized. Venous The inferior vena cava is normal in size. patient on positive-pressure ventilation and there is blunting of the IVC collapse, therefore right atrial pressures based on this study are unreliable Pericardium/Pleural There is no evidence of pericardial effusion. Prior Study Comparison No prior study available for comparison. Measurements 2D Linear Measurements IVSd: 1.36 0.6-0.9/0.6-1.0 cm LVIDd: 4.68 3.9-5.3/4.2-5.9 cm LVIDd Index: 2.21 2.4-3.2/2.2-3.1 cm/m2 LVIDs: 2.90 2.0-3.6 cm LVPWd: 0.81 0.7-1.1 cm LA Diam: 2.30 2.7-3.8/3.0-4.0 cm LAIDs Index: 1.08 1.5-2.3 cm/m2 LV Mass: 228.11 67-162/88-224 g LV Mass Index: 107.60 43-95/49-115 g/m2 LVOT Diam: 2.40 3.0+(-)1.3 cm 2D Systolic Function EF 4C: 71.90 >55% Mitral Valve MV Pk E: 0.88 MV PK A: 0.64 MV Decel Time: 157.00 E/A: 1.40 E'Lateral: 14.90 E'Medial: 9.79 E/E' Med: 9.00 E/E' Lat: 5.90 PHT: 46.00 MVA PHT: 4.78 Decel [place]: 5.61 Aortic Valve AoV Pk Michael: 1.07 AoV Pk Grad: 5.00 RUBI: 4.80 LVOT LVOT Pk Michael: 1.14 LVOT Mn Michael: 0.85 LVOT VTI: 0.19 LVOT Pk Grad: 5.00 LVOT Mn Grad: 3.00 LVOT Diam: 2.40 LVOT Area: 4.52 Diastolic Function MV Pk E: 0.88 MV Pk A: 0.64 E/A: 1.40 E'Medial: 9.79 E/E' Med: 9.00 E' Laterial: 14.90 E/E' Lat: 5.90 Right Ventricle TAPSE (mm): 22.40 TVS' Michael: 17.00 Tricuspid Valve RA Press: 8.00 Great Vessels Aorta Sinus of Valsalva: 3.20 2.0-3.5 cm Ao Asc: 3.20 2.1-3.4 cm Pulmonary Valve PV Pk Michael: 0.82 Peak PV Grad: 3.00 Updated in Other Vendor System with Status of Final Braxton Rob MD electronically signed on 12/22/2022 10:25:58 AM with status of Final
--- NOTE | 2022-12-21 10:13 | PHA.MEDREC ---
Pharmacy Consult ? Medication Reconciliation Medication reconciliation cannot be completed. Patient intubated, no family history. PDMP is has no record of medicaitons. Nereyda Wynn, PharmD
[2022-12-21 10:16] LABS: Glucose, Whole Blood 174 mg/dL (60-115)
[2022-12-21 10:44] LABS: Lactic Acid 23.6 mmol/L (0.5-2.0)
[2022-12-21 10:45] LABS: Troponin-I High Sensitivity 143.5 ng/L (<3.5-35.0)
[2022-12-21 10:46] LABS: Alanine Aminotransferase 966 U/L (0-40); Alkaline Phosphatase 174 U/L (39-117); Anion Gap 45 (12-20); Aspartate Amino Transferase 2068 U/L (5-37); Bilirubin Total 2.4 mg/dL (0.0-1.0); Blood Urea Nitrogen 18 mg/dL (9-16); Carbon Dioxide 8 mmol/L (22-29); Chloride 96 mmol/L (96-108); Creatinine Clr Calc Pharmacy 35.6; Estimated Glomerular Filt Rate 25; Glucose Random 191 mg/dL (60-115); Magnesium 3.1 mg/dL (1.6-2.6); Phosphorus 15.9 mg/dL (2.7-4.5); Potassium 5.8 mmol/L (3.3-5.1); Sodium 143 mmol/L (135-145); Total Protein 7.6 g/dL (6.5-8.0)
[2022-12-21] MEDS: Norepinephrine Bitartrate/D5W 8 MG/250 ML PLAST..BAG 97.88 MG IV ×2 (10:52→13:13)
[2022-12-21 11:32] LABS: ABG Refer to POC result
[2022-12-21 11:42] LABS: Venous Blood Gas Refer to POC result
[2022-12-21 12:14] LABS: Reflex Lactate? Lactic Acid Added
[2022-12-21] MEDS: Ampicillin Sodium/Sulbactam Na 3 GM in 0.9 % Sodium Chloride 100 ML IV ×2 (12:15→22:02)
[2022-12-21] MEDS: Loperamide HCl Oral Liquid 2 MG/15 ML LIQUID 4 MG PO (13:13)
[2022-12-21 13:15] LABS: ~Lactic Acid-LAB USE ONLY 24.5 mmol/L (0.5-2.0)
--- NOTE | 2022-12-21 13:54 | PC.NURSE ---
Patient arrived to unit via stretcher from ED at 0810. Sedated on Propofol gtt; No cough, gag or pain response, flaccid; Pupils 1mm fixed, pinpoint. R IJ TLC obtained. Levophed gtt titrated per EMAR, MAP maintaining >65. HR 90's, sinus, no ectopy. No edema. Echo completed and report pending. Pneumatics and Heparin for DVT prophylaxis. 7.5 ETT, advanced to 26cm by RT per VO Dr Puckett. 0736 ABGs: 6.83/44/158/7, Bicarb 13 - NA Bicarb 100meq administered by ED RN TO Dr Puckett. One AC vent settings, rate increased to [address] Puckett, TV 500, PEEP 5, 30% Fio2 sating 99%. Unasyn 3g IV ordered and administered. Started on Bicarb gtt 150meq @ 100cc/hr @ 0826. 0944 VBGs 6.95/28/64/6; 1004 Lactic 23.6, Trop 143.6, Bicarb 8. 1226 Repeat Lactic 24.5 - TO Dr Puckett 100meq NA Bicard IVP administered. RR up to high 30's, abdominal breathing - Dr Puckett notified. Pacer pads and Gulshan in place. Abdomen soft, hypoactive BS. Multiple episodes of liquid/mucous fajardo diarrhea. Rectal tube in place and Immodium ordered and administered, effectiveness pending. NPO. POC 174 - D5 discontinued. Giron patent, 0-10cc/hr, cloudy dark yellow urine. Tox positive opiates, fentanyl, cocaine, ETOH 227. UC pending. Patient bathed, no skin integrity concerns, on Prevoln system and turning bed. Unable to obtain family contacts/medical hx.
--- NOTE | 2022-12-21 14:13 | MHC.CM.PN ---
EMR REVIEWED, PT W/CARDIAC ARREST, OD AND VENTED, PT UNRESPONSIVE, CM UNABLE TO COMPLETE ASSESSMENT NO HX OF PRIOR VISITS TO [facility] [place], NO CONTACT INFO AVAILABLE, CM TO REVISIT.
[2022-12-21 14:29] LABS: Reflex Lactate? 2 Y
[2022-12-21 15:10] LABS: ~Lactic Acid-LAB USE ONLY 24.6 mmol/L (0.5-2.0)
[2022-12-21] MEDS: Norepinephrine Bitartrate/D5W 8 MG/250 ML PLAST..BAG 94.5 MG IV (15:29)
--- NOTE | 2022-12-21 15:50 | PC.NURSE ---
Addendum entered by Camelia Castillo RN 12/21/22 18:32: Temp up to 99.5, HR maintaining low 100's sinus, RR high 30's, MAP maintaining >65 w/ pressor support - MD notified. No new orders at this time. Pacer pads and Gulshan remains in place. Original Note: Patient arrived to unit via stretcher from ED at 0810. Sedated on Propofol gtt; No cough, gag or pain response, flaccid; Pupils 1mm fixed, pinpoint. Core temp 92.3 upon arrival, up to 96.6. No hypothermic protocol per . R IJ TLC obtained. Levophed gtt titrated per EMAR, MAP maintaining >65. HR 90's, sinus, no ectopy. No edema. Echo completed and report pending. Pneumatics and Heparin for DVT prophylaxis. 7.5 ETT, advanced to 26cm by RT per VO Dr Puckett. 0736 ABGs: 6.83/44/158/7, Bicarb 13 - NA Bicarb 100meq administered by ED RN TO Dr Puckett. One AC vent settings, rate increased to [address] Puckett, TV 500, PEEP 5, 30% Fio2 sating 99%. Unasyn 3g IV ordered and administered. Started on Bicarb gtt 150meq @ 100cc/hr @ 0826. 0944 VBGs 6.95/28/64/6; 1004 Lactic 23.6, Trop 143.6, Bicarb 8. 1226 Repeat Lactic 24.5 - TO Dr Puckett 100meq NA Bicard IVP administered. RR up to high 30's, abdominal breathing - Dr Puckett notified. Pacer pads and Gulshan in place. Abdomen soft, hypoactive BS. Multiple episodes of liquid/mucous fajardo diarrhea. Rectal tube in place and Immodium ordered and administered, effectiveness pending. NPO. POC 227 - MD notified and D5 discontinued. Giron patent, 0-10cc/hr, cloudy dark yellow urine. Tox positive opiates, fentanyl, cocaine, ETOH 227. UC pending. Patient bathed, no skin integrity concerns, on Prevoln system and turning bed. Unable to obtain family contacts/medical hx.
[2022-12-21 15:51] LABS: Glucose, Whole Blood 227 mg/dL (60-115)
[2022-12-21] MEDS: Norepinephrine Bitartrate/D5W 8 MG/250 ML PLAST..BAG 70.88 MG IV (17:53)
[2022-12-21 20:26] LABS: MANUAL DIFF FLAG NO
[2022-12-21 20:31] LABS: ABG Base Excess -12.2 mmol/L; ABG HCO3 11 mmol/L (22-26); ABG pCO2 22 mmHg (32-45); ABG pH 7.31 (7.35-7.45); ABG pO2 72 mmHg (83-108)
[2022-12-21 20:40] LABS: Ammonia 157 umol/L (13-55)
[2022-12-21 20:56] LABS: Alanine Aminotransferase 1714 U/L (0-40); Albumin Level 3.5 g/dL (3.5-5.0); Alkaline Phosphatase 134 U/L (39-117); Anion Gap 40 (12-20); Aspartate Amino Transferase > 4202 U/L (5-37); Bilirubin Total 4.1 mg/dL (0.0-1.0); Blood Urea Nitrogen 27 mg/dL (9-16); Calcium 6.8 mg/dL (8.4-10.2); Carbon Dioxide 12 mmol/L (22-29); Chloride 93 mmol/L (96-108); Estimated Glomerular Filt Rate 17; Glucose Random 270 mg/dL (60-115); Magnesium 1.8 mg/dL (1.6-2.6); Phosphorus 7.5 mg/dL (2.7-4.5); Potassium 4.3 mmol/L (3.3-5.1); Sodium 141 mmol/L (135-145); Total Protein 6.8 g/dL (6.5-8.0)
[2022-12-21] MEDS: Sodium Bicarbonate 8.4% 50 MEQ/50 ML SYRINGE 100 MEQ IVPUSH (20:59)
[2022-12-21] MEDS: Norepinephrine Bitartrate/D5W 8 MG/250 ML PLAST..BAG 60.75 MG IV (21:02)
[2022-12-21 21:03] LABS: Basophils Percent Auto 0.2 % (0-2); Eosinophils Absolute Auto 0.9 X10*3/uL (0.0-0.4); Eosinophils Percent Auto 6.7 % (0-4); Hematocrit 45.6 % (42.0-52.0); Hemoglobin 14.9 g/dl (14.0-18.0); Imm Gran Abs Auto 0.08 X10*3/uL (0.00-0.03); Imm Gran Pct Auto 0.6 % (0.0-0.4); Lymphocytes Absolute Auto 0.8 X10*3/uL (1.2-4.9); Lymphocytes Percent Auto 5.9 % (20-40); Mean Corpuscular HGB Conc 32.7 g/dl (31.0-36.0); Mean Corpuscular Hemoglobin 34.1 pg (27.0-33.0); Mean Corpuscular Volume 104.3 fL (80.0-98.0); Mean Platelet Volume 11.2 fL (9.4-12.4); Monocytes Absolute Auto 0.6 X10*3/uL (0.1-1.2); Monocytes Percent Auto 4.3 % (2-11); Neutrophils Absolute Auto 10.8 x10*3/uL (2.0-8.3); Neutrophils Percent Auto 82.3 % (45-73); Platelet Count 148 X10*3/uL (160-400); Red Blood Count 4.37 X10*6/uL (4.60-5.80); Red Cell Distribution Width 12.7 % (11.0-16.0); WBC ABN SCTR 1
[2022-12-21] MEDS: propofoL 1,000 MG/100 ML VIAL 21.6 MG IVCONT (21:08)
[2022-12-21 21:18] LABS: WBC ABN SCTR FOR CBC 1
[2022-12-21 21:18] LABS: Lactic Acid 17.6 mmol/L (0.5-2.0)
[2022-12-21 21:19] LABS: White Blood Count 13.1 X10*3/uL (4.8-10.8)
[2022-12-21 21:23] LABS: Folate 12.5 ng/mL (> or = 4.0); Vitamin B12 > 2000 pg/mL (200-900)
[2022-12-21] MEDS: Aspirin Enteric Coated 81 MG TABLET.DR PO (22:00)
[2022-12-21 22:05] LABS: PTT Heparin Drip 32.5 SEC (53-77.9)
[2022-12-21] MEDS: Heparin Sodium,Porcine/1/2NS 25,000 UNIT/250 ML IV.SOLN 12.6 UNIT IVCONT (22:18)
[2022-12-21 22:53] LABS: Reflex Lactate? Lactic Acid Added
[2022-12-21] MEDS: fentaNYL citrate/NS 1,000 MCG/100 ML PLAST..BAG 2.5 MCG IVCONT (23:14)
[2022-12-21 23:15] LABS: ABG Refer to POC result
[2022-12-21 23:23] LABS: Cancel Lactic Acid Canceled
[2022-12-22] VITALS (42 sets, daily range): BP systolic 91–130; BP diastolic 50–75; PULSE 99–108; RESP 18–25; TEMP 34.7–38.1; O2SAT 90–95; BMI 28.0
--- NOTE | 2022-12-22 00:01 | P.PNCC_ITS ---
Critical Care Event Note Summary Date of Service: 12/21/22 Code activated: No Narrative: This case had a high probability of a clinically significant, sudden, or life threatening deterioration of this patient's condition which required my full and direct attention, intervention and personal management. Critical Care Time (minutes): 30 Comment: Patient is status post cardiac arrest with unknown downtime.? Currently his not being cooled due to hemodynamic instability. Sedated on Propofol, levo and Bicarb. Vent AC 30/500/5/30% sat 90% Repeat laboratory? reviewed from this evening showABG pH 7.3/? his troponin is over 3000, his creatinine has increased to 3.72 from 2.72, lactic acid has decreased to 17 from 20/. Ammonia 146, LFTs above 4 k. Etoh > 200. He has had tj color stools but his h/h is not significantly low. Exam 134/55; 109/39/90% patient remains sedated skin shows no open lesions, central line in place with clean, dry intact ruchi roundings. HEENT normocephalic, nontraumatic, pupils 3 mm bilaterally nonreactive, vertical nystagmus bilaterally. Become mucosa appears dry. Heart regular with clear S1-S2, 96 beats per minute. Lungs coarse lung sounds bilaterally with some coarseness at the bases right more than left. Abdomen protuberant, diminished bowel sounds, soft, somewhat distended. Rectal tube with moderate stool, dark brown color and Giron catheter in place without urine. musculoskeletal. Passive range of motion of upper and lower extremities bilaterally shows no cogwheeling, no crepitus. There is no leg edema and there is no leg asymmetry. Neuro: as above otherwise in need of further assessment with sedation holiday vascular 2+ pulses bilaterally with less than 2 seconds upper and lower extremity capillary refill at the finger and toes. Review of his EKG on admission? to my view shows sinus rhythm 69 beats per minute without ST elevations however there is ST depressions throughout the anterior? lateral leads, QTC 484.? No comparison. ?Revised? ?Secondary assessment: 1.NSTEMI likely due to cocaine and perhaps leading to cardiac arrest,? 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 Ischemic / Alcoholic Hepatitis (shocked liver) 6. Etoh Intoxication 7. Polysubstance Abuse (fentanyl, cocaine and other opioids) 8. Thrombocytopenia/Coagulopathy due to liver dz and illness Patient's calculated bicarb deficit is 612 mEq? total, he is on bicarbonate drip, will give him 100 mEq as IV push to compensate at least half of his deficit, he still anuric, I will give him 1 L of normal saline. Bladder scan shows 80cc in the bladder. He is hemo-dynamically stable? although still on pressors, we have been titrating down on the dose, his the did not appear to be? comfortable and sedated therefore Propofol was increased to 40 mg dose and will add fentanyl for his back in the event and having a respiratory rate in the 30s and 40s. Ventilation demand rate was decreased to 20 and FIO2 up to 40% Given the troponin abnormality, a 2nd EKG was obtained in this? to my review shows sinus tachycardia ventricular rate of 105 beats per minute.? There is no ST elevations and the ST depressions have resolved however there is a significant J-point only V3 and V4. Patient will be given? low-dose aspirin daily, will start him on a heparin drip per protocol without a load given his low platelets.? ?PTT will? be followed per protocol. Stool guaiac. recheck h and h ovenight. Consider head CT or MRI given the concern of severe anoxic brain injury particularly given the fact that he has ongoing vertical nystagmus. Case discussed with Dr. Morales total critical care time spent with this patient 60 minute
[2022-12-22] MEDS: 0.9 % Sodium Chloride 1,000 ML 999 ML IVCONT (00:16)
[2022-12-22] MEDS: propofoL 1,000 MG/100 ML VIAL 21.6 MG IVCONT (00:19)
[2022-12-22] MEDS: Norepinephrine Bitartrate/D5W 8 MG/250 ML PLAST..BAG 37.13 MG IV (01:35)
[2022-12-22 02:45] LABS: Hematocrit 40.6 % (42.0-52.0); Hemoglobin 13.9 g/dl (14.0-18.0)
[2022-12-22 02:48] LABS: OBS Int Ctl Valid YES; OBS1 POSITIVE (NEGATIVE)
[2022-12-22] MEDS: Sodium Bicarbonate 8.4% 150 MEQ in Dextrose 5 % 850 ML 100 MEQ IV (03:17)
[2022-12-22] MEDS: Magnesium Sulfate/D5W 1 GM/100 ML PIGGYBACK IV (03:33)
[2022-12-22] MEDS: Pantoprazole Sodium 40 MG/10 ML VIAL 80 MG IVPUSH (03:55)
[2022-12-22 04:22] LABS: PTT Heparin Drip 92.2 SEC (53-77.9)
[2022-12-22] MEDS: propofoL 1,000 MG/100 ML VIAL 16.2 MG IVCONT ×4 (05:26→21:22)
[2022-12-22 06:05] LABS: MANUAL DIFF FLAG NO
[2022-12-22 06:09] LABS: Basophils Percent Auto 0.2 % (0-2); Hematocrit 40.9 % (42.0-52.0); Hemoglobin 14.1 g/dl (14.0-18.0); Imm Gran Abs Auto 0.15 X10*3/uL (0.00-0.03); Imm Gran Pct Auto 1.1 % (0.0-0.4); Lymphocytes Absolute Auto 0.8 X10*3/uL (1.2-4.9); Lymphocytes Percent Auto 6.4 % (20-40); Mean Corpuscular HGB Conc 34.5 g/dl (31.0-36.0); Mean Corpuscular Hemoglobin 33.7 pg (27.0-33.0); Mean Corpuscular Volume 97.6 fL (80.0-98.0); Mean Platelet Volume 10.9 fL (9.4-12.4); Monocytes Absolute Auto 0.7 X10*3/uL (0.1-1.2); Monocytes Percent Auto 5.2 % (2-11); NRBC Pct Auto 0.2 /100WBC (0.0-0.2); Neutrophils Absolute Auto 11.4 x10*3/uL (2.0-8.3); Neutrophils Percent Auto 87.1 % (45-73); Platelet Count 109 X10*3/uL (160-400); Red Blood Count 4.19 X10*6/uL (4.60-5.80); Red Cell Distribution Width 12.7 % (11.0-16.0); White Blood Count 13.1 X10*3/uL (4.8-10.8)
[2022-12-22 06:12] LABS: VBG Base Excess 5.2 mmol/L; VBG HCO3 28 mmol/L (22-26); VBG pCO2 35 mmHg; VBG pO2 55 mmHg
[2022-12-22 06:28] LABS: Lactic Acid 6.3 mmol/L (0.5-2.0)
[2022-12-22 06:37] LABS: Troponin-I High Sensitivity > 3600.0 ng/L (<3.5-35.0)
[2022-12-22 06:38] LABS: Alanine Aminotransferase 1752 U/L (0-40); Albumin Level 3.1 g/dL (3.5-5.0); Alkaline Phosphatase 105 U/L (39-117); Anion Gap 28 (12-20); Bilirubin Total 5.6 mg/dL (0.0-1.0); Blood Urea Nitrogen 33 mg/dL (9-16); Calcium 6.5 mg/dL (8.4-10.2); Carbon Dioxide 25 mmol/L (22-29); Chloride 94 mmol/L (96-108); Creatinine Clr Calc Pharmacy 22.4; Estimated Glomerular Filt Rate 13; Glucose Random 229 mg/dL (60-115); Magnesium 1.8 mg/dL (1.6-2.6); Phosphorus 3.4 mg/dL (2.7-4.5); Sodium 143 mmol/L (135-145); Total Protein 5.9 g/dL (6.5-8.0)
[2022-12-22 06:51] LABS: Aspartate Amino Transferase > 4202 U/L (5-37)
[2022-12-22 08:02] LABS: Reflex Lactate? Lactic Acid Added
[2022-12-22] MEDS: Albumin Human 25 % 100 ML IV ×2 (08:03→09:03)
[2022-12-22] MEDS: Chlorhexidine Gluc Oral Rinse 15 ML MOUTHWASH BUCCAL ×3 (08:12→20:24)
[2022-12-22 08:52] LABS: ~Lactic Acid-LAB USE ONLY 5.6 mmol/L (0.5-2.0)
[2022-12-22 09:02] LABS: Venous Blood Gas Refer to POC result
[2022-12-22] MEDS: Calcium Gluconate/NaCl,Iso-Osm 2 GM/100 ML PLAST..BAG IV (09:09)
[2022-12-22] MEDS: Norepinephrine Bitartrate/D5W 8 MG/250 ML PLAST..BAG 20.25 MG IV (09:15)
--- NOTE | 2022-12-22 09:46 | PM.CCPN ---
Subjective Subjective Date of Service: 12/22/22 Interval History: 52-year-old gentleman with unclear past medical history admitted on 12/21/2022 with out of hospital PEA cardiac arrest with unclear down time with returned spontaneous circulation on arrival to emergency room, intubated during the CPR and transferred to intensive care unit. Patient with profound metabolic lactic acidosis, ischemic hepatitis, and acute renal failure requiring high dose vasopressor support. No events overnight. Metabolic acidosis resolved. Lactate improving. Worsening ATN and ischemic hepatitis. Also, with NSTEMI, now on heparin drip. Critical Care Time (minutes): 45 Physical Exam Vital Signs: Vital Signs: Last Vital Signs Temp 99.3 F 12/22/22 09:00 Pulse 105 H 12/22/22 09:15 Resp 20 12/22/22 09:00 BP 124/73 12/22/22 09:15 Pulse Ox 95 12/22/22 09:00 O2 Del Method 12/22/22 09:00 FiO2 40 12/22/22 09:00 BMI result Body Mass Index 28.0 Const: General: other (comatose) Eyes: Sclerae: sclerae normal Pupils: Pupils not reactive and Pinpoint pupils bilaterally Neck: Neck: Yes no lymphadenopathy, Yes trachea midline and Yes supple Resp: Auscultation: clear to auscultation bilaterally Cardio: Rate: regular rate Rhythm: regular rhythm Heart sounds: no gallops, no murmurs and no rubs GI: Palpation (GI): Soft to palpation and Other GI palpation findings present ( Nontender) Auscultation: normal bowel sounds Extrem: General: Yes no pedal edema, No clubbing and No cyanosis Objective Data Labs 12/22/22 05:55 12/22/22 05:55 Labs: Laboratory Results - last 24 hr 12/21/22 12/21/22 12/21/22 09:44 10:06 10:06 WBC RBC Hgb Hct MCV MCH MCHC RDW Plt Count MPV Immature Gran % (Auto) Neut % (Auto) Lymph % (Auto) [place] % (Auto) Eos % (Auto) Baso % (Auto) Lymph # (Auto) [place] # (Auto) Eos # (Auto) Baso # (Auto) Abs Immat Gran (auto) Absolute Neuts (auto) Absolute Nucleated RBC Nucleated RBC % (auto) aPTT Heparin Protocol O2 Saturation ABG pH at Pt Temp ABG pCO2 at Pt Temp ABG pO2 at Pt Temp ABG HCO3 ABG Base Excess (Actual) VBG pH 6.95 L* VBG pCO2 28 VBG pO2 64 VBG HCO3 6 L VBG O2 Saturation 81.0 VBG Base Excess -24.6 Sodium 143 Potassium 5.8 H Chloride 96 Carbon Dioxide 8 L* D Anion Gap 45 H BUN 18 H Creatinine 2.72 H Estim Creat Clear Calc 35.6 Estimated GFR 25 POC Glucose Random Glucose 191 H Lactic Acid 23.6 H* Lactic Acid F/U @ 2Hr Lactic Acid F/U @ 4Hr Calcium 8.0 L D Phosphorus 15.9 H Magnesium 3.1 H Total Bilirubin 2.4 H AST 2068 H ALT 966 H Alkaline Phosphatase 174 H Ammonia Troponin I High Sens Total Protein 7.6 Albumin 4.0 Vitamin B12 Folate Stool Occult Blood 12/21/22 12/21/22 12/21/22 10:06 10:13 12:26 WBC RBC Hgb Hct MCV MCH MCHC RDW Plt Count MPV Immature Gran % (Auto) Neut % (Auto) Lymph % (Auto) [place] % (Auto) Eos % (Auto) Baso % (Auto) Lymph # (Auto) [place] # (Auto) Eos # (Auto) Baso # (Auto) Abs Immat Gran (auto) Absolute Neuts (auto) Absolute Nucleated RBC Nucleated RBC % (auto) aPTT Heparin Protocol O2 Saturation ABG pH at Pt Temp ABG pCO2 at Pt Temp ABG pO2 at Pt Temp ABG HCO3 ABG Base Excess (Actual) VBG pH VBG pCO2 VBG pO2 VBG HCO3 VBG O2 Saturation VBG Base Excess Sodium Potassium Chloride Carbon Dioxide Anion Gap BUN Creatinine Estim Creat Clear Calc Estimated GFR POC Glucose 174 H Random Glucose Lactic Acid Lactic Acid F/U @ 2Hr 24.5 H* Lactic Acid F/U @ 4Hr Calcium Phosphorus Magnesium Total Bilirubin AST ALT Alkaline Phosphatase Ammonia Troponin I High Sens 143.5 H* D Total Protein Albumin Vitamin B12 Folate Stool Occult Blood 12/21/22 12/21/22 12/21/22 14:43 15:47 20:20 WBC 13.1 H RBC 4.37 L Hgb 14.9 Hct 45.6 MCV 104.3 H D MCH 34.1 H MCHC 32.7 RDW 12.7 Plt Count 148 L MPV 11.2 Immature Gran % (Auto) 0.6 H Neut % (Auto) 82.3 H Lymph % (Auto) 5.9 L [place] % (Auto) 4.3 Eos % (Auto) 6.7 H Baso % (Auto) 0.2 Lymph # (Auto) 0.8 L [place] # (Auto) 0.6 Eos # (Auto) 0.9 H Baso # (Auto) 0.0 Abs Immat Gran (auto) 0.08 H Absolute Neuts (auto) 10.8 H Absolute Nucleated RBC 0.000 Nucleated RBC % (auto) 0.0 aPTT Heparin Protocol O2 Saturation ABG pH at Pt Temp ABG pCO2 at Pt Temp ABG pO2 at Pt Temp ABG HCO3 ABG Base Excess (Actual) VBG pH VBG pCO2 VBG pO2 VBG HCO3 VBG O2 Saturation VBG Base Excess Sodium Potassium Chloride Carbon Dioxide Anion Gap BUN Creatinine Estim Creat Clear Calc Estimated GFR POC Glucose 227 H Random Glucose Lactic Acid Lactic Acid F/U @ 2Hr Lactic Acid F/U @ 4Hr 24.6 H* Calcium Phosphorus Magnesium Total Bilirubin AST ALT Alkaline Phosphatase Ammonia Troponin I High Sens Total Protein Albumin Vitamin B12 Folate Stool Occult Blood 12/21/22 12/21/22 12/21/22 20:20 20:20 20:20 WBC RBC Hgb Hct MCV MCH MCHC RDW Plt Count MPV Immature Gran % (Auto) Neut % (Auto) Lymph % (Auto) [place] % (Auto) Eos % (Auto) Baso % (Auto) Lymph # (Auto) [place] # (Auto) Eos # (Auto) Baso # (Auto) Abs Immat Gran (auto) Absolute Neuts (auto) Absolute Nucleated RBC Nucleated RBC % (auto) aPTT Heparin Protocol O2 Saturation ABG pH at Pt Temp ABG pCO2 at Pt Temp ABG pO2 at Pt Temp ABG HCO3 ABG Base Excess (Actual) VBG pH VBG pCO2 VBG pO2 VBG HCO3 VBG O2 Saturation VBG Base Excess Sodium 141 Potassium 4.3 D Chloride 93 L Carbon Dioxide 12 L Anion Gap 40 H BUN 27 H Creatinine 3.72 H Estim Creat Clear Calc 26.0 Estimated GFR 17 POC Glucose Random Glucose 270 H Lactic Acid Lactic Acid F/U @ 2Hr Lactic Acid F/U @ 4Hr Calcium 6.8 L D Phosphorus 7.5 H Magnesium 1.8 Total Bilirubin 4.1 H AST > 4202 H ALT 1714 H Alkaline Phosphatase 134 H Ammonia 157 H Troponin I High Sens 3218.7 H* D Total Protein 6.8 Albumin 3.5 Vitamin B12 > 2000 H Folate 12.5 Stool Occult Blood 12/21/22 12/21/22 12/21/22 20:24 20:49 21:49 WBC RBC Hgb Hct MCV MCH MCHC RDW Plt Count MPV Immature Gran % (Auto) Neut % (Auto) Lymph % (Auto) [place] % (Auto) Eos % (Auto) Baso % (Auto) Lymph # (Auto) [place] # (Auto) Eos # (Auto) Baso # (Auto) Abs Immat Gran (auto) Absolute Neuts (auto) Absolute Nucleated RBC Nucleated RBC % (auto) aPTT Heparin Protocol 32.5 L O2 Saturation 94.0 ABG pH at Pt Temp 7.31 L ABG pCO2 at Pt Temp 22 L ABG pO2 at Pt Temp 72 L ABG HCO3 11 L ABG Base Excess (Actual) -12.2 VBG pH VBG pCO2 VBG pO2 VBG HCO3 VBG O2 Saturation VBG Base Excess Sodium Potassium Chloride Carbon Dioxide Anion Gap BUN Creatinine Estim Creat Clear Calc Estimated GFR POC Glucose Random Glucose Lactic Acid 17.6 H* Lactic Acid F/U @ 2Hr Lactic Acid F/U @ 4Hr Calcium Phosphorus Magnesium Total Bilirubin AST ALT Alkaline Phosphatase Ammonia Troponin I High Sens Total Protein Albumin Vitamin B12 Folate Stool Occult Blood 12/22/22 12/22/22 12/22/22 02:31 02:37 04:07 WBC RBC Hgb 13.9 L Hct 40.6 L MCV MCH MCHC RDW Plt Count MPV Immature Gran % (Auto) Neut % (Auto) Lymph % (Auto) [place] % (Auto) Eos % (Auto) Baso % (Auto) Lymph # (Auto) [place] # (Auto) Eos # (Auto) Baso # (Auto) Abs Immat Gran (auto) Absolute Neuts (auto) Absolute Nucleated RBC Nucleated RBC % (auto) aPTT Heparin Protocol 92.2 H D O2 Saturation ABG pH at Pt Temp ABG pCO2 at Pt Temp ABG pO2 at Pt Temp ABG HCO3 ABG Base Excess (Actual) VBG pH VBG pCO2 VBG pO2 VBG HCO3 VBG O2 Saturation VBG Base Excess Sodium Potassium Chloride Carbon Dioxide Anion Gap BUN Creatinine Estim Creat Clear Calc Estimated GFR POC Glucose Random Glucose Lactic Acid Lactic Acid F/U @ 2Hr Lactic Acid F/U @ 4Hr Calcium Phosphorus Magnesium Total Bilirubin AST ALT Alkaline Phosphatase Ammonia Troponin I High Sens Total Protein Albumin Vitamin B12 Folate Stool Occult Blood POSITIVE 12/22/22 12/22/22 12/22/22 05:55 05:55 05:55 WBC 13.1 H RBC 4.19 L Hgb 14.1 Hct 40.9 L MCV 97.6 D MCH 33.7 H MCHC 34.5 RDW 12.7 Plt Count 109 L D MPV 10.9 Immature Gran % (Auto) 1.1 H Neut % (Auto) 87.1 H Lymph % (Auto) 6.4 L [place] % (Auto) 5.2 Eos % (Auto) 0.0 Baso % (Auto) 0.2 Lymph # (Auto) 0.8 L [place] # (Auto) 0.7 Eos # (Auto) 0.0 Baso # (Auto) 0.0 Abs Immat Gran (auto) 0.15 H Absolute Neuts (auto) 11.4 H Absolute Nucleated RBC 0.030 H Nucleated RBC % (auto) 0.2 aPTT Heparin Protocol O2 Saturation ABG pH at Pt Temp ABG pCO2 at Pt Temp ABG pO2 at Pt Temp ABG HCO3 ABG Base Excess (Actual) VBG pH VBG pCO2 VBG pO2 VBG HCO3 VBG O2 Saturation VBG Base Excess Sodium 143 Potassium 4.0 Chloride 94 L Carbon Dioxide 25 Anion Gap 28 H BUN 33 H Creatinine 4.68 H* Estim Creat Clear Calc 22.4 Estimated GFR 13 POC Glucose Random Glucose 229 H Lactic Acid 6.3 H* Lactic Acid F/U @ 2Hr Lactic Acid F/U @ 4Hr Calcium 6.5 L Phosphorus 3.4 Magnesium 1.8 Total Bilirubin 5.6 H AST > 4202 H ALT 1752 H Alkaline Phosphatase 105 Ammonia Troponin I High Sens Total Protein 5.9 L Albumin 3.1 L Vitamin B12 Folate Stool Occult Blood 12/22/22 12/22/22 12/22/22 05:55 06:03 08:23 WBC RBC Hgb Hct MCV MCH MCHC RDW Plt Count MPV Immature Gran % (Auto) Neut % (Auto) Lymph % (Auto) [place] % (Auto) Eos % (Auto) Baso % (Auto) Lymph # (Auto) [place] # (Auto) Eos # (Auto) Baso # (Auto) Abs Immat Gran (auto) Absolute Neuts (auto) Absolute Nucleated RBC Nucleated RBC % (auto) aPTT Heparin Protocol O2 Saturation ABG pH at Pt Temp ABG pCO2 at Pt Temp ABG pO2 at Pt Temp ABG HCO3 ABG Base Excess (Actual) VBG pH 7.50 H VBG pCO2 35 VBG pO2 55 VBG HCO3 28 H VBG O2 Saturation 85.0 VBG Base Excess 5.2 Sodium Potassium Chloride Carbon Dioxide Anion Gap BUN Creatinine Estim Creat Clear Calc Estimated GFR POC Glucose Random Glucose Lactic Acid Lactic Acid F/U @ 2Hr 5.6 H* Lactic Acid F/U @ 4Hr Calcium Phosphorus Magnesium Total Bilirubin AST ALT Alkaline Phosphatase Ammonia Troponin I High Sens > 3600.0 H* Total Protein Albumin Vitamin B12 Folate Stool Occult Blood Progress Note: A&P Assessment and plan (1) NSTEMI (non-ST elevated myocardial infarction): Status: Acute (2) Cardiac arrest: Status: Acute (3) Polysubstance abuse: Status: Acute (4) Acute respiratory failure: Status: Acute (5) Ischemic hepatitis: Status: Acute (6) Acute renal failure: Status: Acute (7) Alcohol intoxication: Status: Acute (8) Encephalopathy: Status: Acute Plan Assessment: 52-year-old gentleman admitted with PEA out of hospital cardiac arrest with unclear down time with returned spontaneous circulation upon arrival to emergency room, intubated during the CPR Plan: Neuro: Comatose. Polysubstance abuse. No induced hypothermia secondary to hemodynamic instability. If mental status not improvung within 24-48 hours, will consider brain MRI. Cardiac: PEA out of hospital cardiac arrest with unclear down time. Continue to titrate off vasopressor support. 2D echocardiogram is pending. Possible etiology is aspiration. NSTEMI, now on aspirin and heparin drip. Pulmonary: Acute respiratory failure, intubated during the CPR. Possible underlying pulmonary aspiration. Continue to titrate off ventilatory support as tolerated. Renal: Acute renal failure secondary to cardiac arrest. Oliguric. Likely ischemic ATN. Continue to monitor renal indices and urine output. Lactic metabolic acidosis secondary to cardiac arrest, improving. Endo: No acute issues. GI: Ischemic hepatitis after cardiac arrest, continue to monitor. ID: No evidence of sepsis. Hypotension, elevated lactate, and end-organ damage are secondary to cardiac arrest. Antibiotics are empiric. Heme/Onc: No acute issues. Psych: No acute issues. Miscellaneous: No family/HCP contacts are available at this time. Prophylaxis: Heparin Diet: Nothing by mouth Critical care time spent: 45 minutes Quality Stroke Does the patient have a stroke diagnosis?: No VTE Prior VTE?: No VTE Risk Level:: Medical - moderate - high VTE Device Contraindication: N/A - Device Ordered VTE Drug Contraindication: N/A - Med Ordered
[2022-12-22 10:15] LABS: PTT Heparin Drip 100.3 SEC (53-77.9)
[2022-12-22 10:27] LABS: Reflex Lactate? 2 Y
[2022-12-22 10:54] LABS: Cancel Lactic Acid Canceled
[2022-12-22] MEDS: Ampicillin Sodium/Sulbactam Na 1.5 GM in 0.9 % Sodium Chloride 100 ML IV (11:11)
[2022-12-22] MEDS: fentaNYL citrate/NS 1,000 MCG/100 ML PLAST..BAG 5 MCG IVCONT (13:49)
[2022-12-22 15:14] LABS: Glucose, Whole Blood 117 mg/dL (60-115)
[2022-12-22] MEDS: Pantoprazole Sodium 40 MG/10 ML VIAL IVPUSH (16:03)
[2022-12-22 17:45] LABS: PTT Heparin Drip 83.4 SEC (53-77.9)
[2022-12-22] MEDS: Aspirin Enteric Coated 81 MG TABLET.DR PO (20:24)
[2022-12-22] MEDS: Heparin Sodium,Porcine/1/2NS 25,000 UNIT/250 ML IV.SOLN 6.3 UNIT IVCONT (21:24)
[2022-12-22] MEDS: Norepinephrine Bitartrate/D5W 8 MG/250 ML PLAST..BAG 23.63 MG IV (21:46)
[2022-12-23] VITALS (35 sets, daily range): BP systolic 97–148; BP diastolic 49–74; PULSE 100–109; RESP 18–23; TEMP 34.3–38.7; O2SAT 65–96; BMI 27.8
[2022-12-23] MEDS: propofoL 1,000 MG/100 ML VIAL 16.2 MG IVCONT ×2 (00:24→05:26)
[2022-12-23] MEDS: Ampicillin Sodium/Sulbactam Na 1.5 GM in 0.9 % Sodium Chloride 100 ML IV (00:26)
[2022-12-23 00:30] LABS: PTT Heparin Drip 63.6 SEC (53-77.9)
[2022-12-23 04:54] LABS: VBG Base Excess 3.3 mmol/L; VBG HCO3 28 mmol/L (22-26); VBG pCO2 43 mmHg; VBG pH 7.42 (7.32-7.43); VBG pO2 61 mmHg
[2022-12-23 04:58] LABS: Hematocrit 37.2 % (42.0-52.0); Hemoglobin 12.8 g/dl (14.0-18.0); Mean Corpuscular HGB Conc 34.4 g/dl (31.0-36.0); Mean Corpuscular Hemoglobin 34.6 pg (27.0-33.0); Mean Corpuscular Volume 100.5 fL (80.0-98.0); NRBC Pct Auto 0.6 /100WBC (0.0-0.2); Red Cell Distribution Width 13.5 % (11.0-16.0); White Blood Count 12.8 X10*3/uL (4.8-10.8)
[2022-12-23 05:00] LABS: Platelet Count 92 X10*3/uL (160-400)
[2022-12-23 05:17] LABS: Band Neutrophils Percent 22 % (3-5); Lymphocytes Absolute Manual 3.1 X10*3/uL (1.2-4.9); Lymphocytes Percent Manual 24 % (20-40); Metamyelocytes Absolute 0.3 X10*3/uL; Metamyelocytes Percent 2 %; Monocytes Absolute Manual 0.4 X10*3/uL (0.1-1.2); Monocytes Percent Manual 3 % (2-11); Neutrophils Absolute Manual 9.1 X10*3/uL (2.0-8.3); Neutrophils Percent Manual 49 % (45-73); Nucleated Red Blood Cells 1 /100WBC (0-0)
[2022-12-23 05:19] LABS: Macrocytosis 1+ (5-14) /OIF; Platelet Estimate SLIGHTLY DECREASED (NORMAL); RBC Morphology NOTED
[2022-12-23 05:20] LABS: Platelet Morphology Comment NORMAL; Polychromasia 1+ (0-2) /OIF
[2022-12-23 05:21] LABS: Troponin-I High Sensitivity > 3600.0 ng/L (<3.5-35.0)
[2022-12-23] MEDS: Pantoprazole Sodium 40 MG/10 ML VIAL IVPUSH ×2 (05:29→15:48)
[2022-12-23 05:53] LABS: Alanine Aminotransferase 1498 U/L (0-40); Albumin Level 3.2 g/dL (3.5-5.0); Alkaline Phosphatase 87 U/L (39-117); Anion Gap 30 (12-20); Aspartate Amino Transferase 2974 U/L (5-37); Bilirubin Total 6.8 mg/dL (0.0-1.0); Blood Urea Nitrogen 64 mg/dL (9-16); Calcium 6.8 mg/dL (8.4-10.2); Carbon Dioxide 28 mmol/L (22-29); Chloride 93 mmol/L (96-108); Creatinine Clr Calc Pharmacy 12.4; Estimated Glomerular Filt Rate 7; Glucose Random 101 mg/dL (60-115); Magnesium 1.8 mg/dL (1.6-2.6); Phosphorus 7.1 mg/dL (2.7-4.5); Potassium 4.7 mmol/L (3.3-5.1); Sodium 146 mmol/L (135-145); Total Protein 5.6 g/dL (6.5-8.0)
[2022-12-23 06:10] LABS: PTT Heparin Drip 55.9 SEC (53-77.9)
[2022-12-23 06:46] LABS: Venous Blood Gas Refer to POC result
[2022-12-23] MEDS: Norepinephrine Bitartrate/D5W 8 MG/250 ML PLAST..BAG 28.69 MG IV ×2 (07:35→16:30)
[2022-12-23] MEDS: Chlorhexidine Gluc Oral Rinse 15 ML MOUTHWASH BUCCAL ×3 (09:57→21:14)
--- NOTE | 2022-12-23 10:38 | PM.CCPN ---
Subjective Subjective Date of Service: 12/23/22 Interval History: 52-year-old male apparently polysubstance abuse found unresponsive on the street for unknown amount of time was in a PE a mechanism able to achieve [place] and intubated upon arrival to the emergency room and he has remained unresponsive since but has been sedated with a combination of propofol and fentanyl which I stopped early this morning at about 03/25/2030 noticed in looking through his labs that he does have a slowly repairing lactate does have elevated troponin in as well as being in acute renal failure with a positive anion gap metabolic acidosis and also markedly elevated liver transaminases so clearly the no he had and it and ischemic form of hepatitis at the same time so clearly has underlying multiorgan failure but on the there was an ammonia level that was drawn and I do not see that there was action upon it but it was at 01:53 some starting lactulose now and with good feeding tube placement in the in the stomach come initiating feedings hydration by that mechanism we did measure CVP which is running at about 11 so he is definitely euvolemic and bedside echo demonstrates that there is a just modestly distended inferior vena cava no inspiratory collapse at all and his LV function and RV function appeared to be preserved but no primary valve or pericardial disease disease so I am stopping all of his sedation and treating the elevated ammonia level and we will give him time to see whether not he attains a degree of responsiveness and during this time I am going to obtain a dry CT scan of his head to be sure that were not missing some inadvertent head trauma Critical Care Time (minutes): 60 Physical Exam Vital Signs: Vital Signs: Last Vital Signs Temp 101.7 F H 12/23/22 10:00 Pulse 104 H 12/23/22 10:00 Resp 19 12/23/22 10:00 BP 121/58 L 12/23/22 10:00 Pulse Ox 95 12/23/22 10:00 O2 Del Method 12/23/22 10:00 FiO2 40 12/23/22 10:00 BMI result Body Mass Index 27.8 currently unresponsive but of course we just shut off his sedation bedside echo with preserved LV and RV func tion I examined the chest and chest appears to be clear with go od tube placement abdomen with positive bowel soun ds no again a megaly skin is intact and we remain markedly oliguric Objective Data Labs 12/23/22 04:45 12/23/22 04:45 Labs: Laboratory Results - last 24 hr 12/22/22 12/22/22 12/23/22 15:09 17:31 00:12 WBC RBC Hgb Hct MCV MCH MCHC RDW Plt Count MPV Immature Gran % (Auto) Neut % (Auto) Lymph % (Auto) [place] % (Auto) Eos % (Auto) Baso % (Auto) Lymph # (Auto) [place] # (Auto) Eos # (Auto) Baso # (Auto) Abs Immat Gran (auto) Absolute Neuts (auto) Absolute Nucleated RBC Nucleated RBC % (auto) Neutrophils % (Manual) Band Neutrophils % Lymphocytes % (Manual) Monocytes % (Manual) Metamyelocytes % Abs Neuts (Manual) Lymphocytes # (Manual) Monocytes # (Manual) Metamyelocytes # Nucleated RBCs Platelet Estimate Plt Morphology Comment RBC Morphology Polychromasia Macrocytosis aPTT Heparin Protocol 83.4 H 63.6 D VBG pH VBG pCO2 VBG pO2 VBG HCO3 VBG O2 Saturation VBG Base Excess Sodium Potassium Chloride Carbon Dioxide Anion Gap BUN Creatinine Estim Creat Clear Calc Estimated GFR POC Glucose 117 H Random Glucose Calcium Phosphorus Magnesium Total Bilirubin AST ALT Alkaline Phosphatase Troponin I High Sens Total Protein Albumin 12/23/22 12/23/22 12/23/22 04:45 04:45 04:45 WBC 12.8 H RBC 3.70 L Hgb 12.8 L Hct 37.2 L MCV 100.5 H MCH 34.6 H MCHC 34.4 RDW 13.5 Plt Count 92 L MPV 11.0 Immature Gran % (Auto) Cancelled Neut % (Auto) Cancelled Lymph % (Auto) Cancelled [place] % (Auto) Cancelled Eos % (Auto) Cancelled Baso % (Auto) Cancelled Lymph # (Auto) Cancelled [place] # (Auto) Cancelled Eos # (Auto) Cancelled Baso # (Auto) Cancelled Abs Immat Gran (auto) Cancelled Absolute Neuts (auto) Cancelled Absolute Nucleated RBC 0.080 H Nucleated RBC % (auto) 0.6 H Neutrophils % (Manual) 49 Band Neutrophils % 22 H Lymphocytes % (Manual) 24 Monocytes % (Manual) 3 Metamyelocytes % 2 Abs Neuts (Manual) 9.1 H Lymphocytes # (Manual) 3.1 Monocytes # (Manual) 0.4 Metamyelocytes # 0.3 Nucleated RBCs 1 H Platelet Estimate SLIGHTLY DECREASED Plt Morphology Comment NORMAL RBC Morphology NOTED Polychromasia 1+ (0-2) Macrocytosis 1+ (5-14) aPTT Heparin Protocol VBG pH VBG pCO2 VBG pO2 VBG HCO3 VBG O2 Saturation VBG Base Excess Sodium 146 H Potassium 4.7 Chloride 93 L Carbon Dioxide 28 Anion Gap 30 H BUN 64 H Creatinine 7.77 H* Estim Creat Clear Calc 12.4 Estimated GFR 7 POC Glucose Random Glucose 101 Calcium 6.8 L Phosphorus 7.1 H Magnesium 1.8 Total Bilirubin 6.8 H AST 2974 H ALT 1498 H Alkaline Phosphatase 87 Troponin I High Sens > 3600.0 H* Total Protein 5.6 L Albumin 3.2 L 12/23/22 12/23/22 04:47 05:55 WBC RBC Hgb Hct MCV MCH MCHC RDW Plt Count MPV Immature Gran % (Auto) Neut % (Auto) Lymph % (Auto) [place] % (Auto) Eos % (Auto) Baso % (Auto) Lymph # (Auto) [place] # (Auto) Eos # (Auto) Baso # (Auto) Abs Immat Gran (auto) Absolute Neuts (auto) Absolute Nucleated RBC Nucleated RBC % (auto) Neutrophils % (Manual) Band Neutrophils % Lymphocytes % (Manual) Monocytes % (Manual) Metamyelocytes % Abs Neuts (Manual) Lymphocytes # (Manual) Monocytes # (Manual) Metamyelocytes # Nucleated RBCs Platelet Estimate Plt Morphology Comment RBC Morphology Polychromasia Macrocytosis aPTT Heparin Protocol 55.9 VBG pH 7.42 VBG pCO2 43 VBG pO2 61 VBG HCO3 28 H VBG O2 Saturation 87.0 VBG Base Excess 3.3 Sodium Potassium Chloride Carbon Dioxide Anion Gap BUN Creatinine Estim Creat Clear Calc Estimated GFR POC Glucose Random Glucose Calcium Phosphorus Magnesium Total Bilirubin AST ALT Alkaline Phosphatase Troponin I High Sens Total Protein Albumin Microbiology Microbiology Results: Microbiology 12/21/22 Unknown Urine Catheterized - Giron Catheter Urine Culture - Final No growth. Progress Note: A&P Assessment and plan (1) Increased ammonia level: Status: Acute Plan so I am adding lactulose to the regimen adjusting his IV fluids down given his a more than adequate CVP and of course just continuing to watch for recovery of his renal function and deciding when it might be necessary to intervene with dialysis which today is is not the time and this way try to determine a prognosis at the same time ir awaiting a search for a potential family member by IR housing case managerestimator project manager Stroke Does the patient have a stroke diagnosis?: No VTE Prior VTE?: No VTE Risk Level:: Medical - moderate - high VTE Device Contraindication: N/A - Device Ordered VTE Drug Contraindication: N/A - Med Ordered
--- NOTE | 2022-12-23 12:00 | MHC.CM.PN ---
Addendum entered by Earnestine Grant 12/23/22 13:00: Received callback from Indigo who identified as pt's brother. He resides in [place] and states pt lives in a house he owns. Indigo states pt typically drinks ETOH but will dabble in cocaine. He states pt has a rough still[place]amish of friends in the [facility]. Indigo states pt has another brother and a mother but not in the area. He states he would serve as decision maker if needed. No known HCP on file. Indigo transferred to ICU dry goods clerk for discussion of care needs. INDIGO BOBO: [phone] Original Note: Pt remains intubated in ICU and unable to give information. Pt brought in to ED by [facility] after being found unresponsive by roommate. No HCP on file, no past visits at [facility] and no contacts listed. Call placed to [place] [employer] Records: L/M for callback re: address and possible contact via roommate. Social media search notes pt may have been living w/a relative in [place]. Message left for this person requesting a callback - no identifying pt information given. Per discussion w/MD: pt is gravely ill and will need a decision maker to assist w/goals of care. CM to continue to search for contact/next of kin. Will await callbacks from [employer] and possible relative in [place].
[2022-12-23 12:22] LABS: PTT Heparin Drip 55.9 SEC (53-77.9)
[2022-12-23] MEDS: Lactulose 20 GM/30 ML SOLUTION PO ×2 (12:41→21:14)
--- NOTE | 2022-12-23 18:02 | PC.NURSE ---
PATIENT RASS -5 DURING MORNING ASSESSMENT, NO RESPONSE TO PAIN NOTED, PUPILS SLUGGISH - 1MM. PATIENT SEDATED ON PROPOFOL AND FENTANYL GTT. SEDATION VACATION STARTED AT 0840. NO CHANGE IN NEURALGIC STATUS NOTED OVER COURSE OF SHIFT. PATIENT BROUGHT OF UNIT FOR A HEAD CT. RESULTS NORMAL. CERTIFIED NUTRITIONIST INFORMED ON LACK OF EMERGENCY CONTACTS. CERTIFIED NUTRITIONIST LOCATED BROTHER. PATIENT FAMILY CONTACTED AND INFORMED ON PATIENT BEING HOSPITALIZED, PRIOR INTERVENTIONS COMPLETED IN HOSPITAL, CURRENT HEALTH STATUS, AND PLAN OF CARE. FAMILY ADDED TO CONTACT LIST. PATIENT BATHED, REPOSITIONED Q2HR, AND ROUTINE ORAL CARE PREFORMED.
[2022-12-23] MEDS: Heparin Sodium,Porcine/1/2NS 25,000 UNIT/250 ML IV.SOLN 6.3 UNIT IVCONT (21:14)
[2022-12-23] MEDS: Aspirin Enteric Coated 81 MG TABLET.DR PO (21:14)
[2022-12-24] VITALS (36 sets, daily range): BP systolic 116–153; BP diastolic 64–85; PULSE 86–104; RESP 14–21; TEMP 35–38.8; O2SAT 93–96; BMI 26.9
--- NOTE | 2022-12-24 | ECG_ITS ---
Test Reason : positive troponins Blood Pressure : / mmHG Vent. Rate : 100 BPM Atrial Rate : 100 BPM P-R Int : 150 ms QRS Dur : 088 ms QT Int : 422 ms P-R-T Axes : 046 010 040 degrees QTc Int : 544 ms Normal sinus rhythm Prolonged QT Abnormal ECG When compared with ECG of 21-DEC-2022 21:03, No significant change was found Referred By: Ramona Sharma Electronically Signed By:EVAN BEYER
[2022-12-24] MEDS: Norepinephrine Bitartrate/D5W 8 MG/250 ML PLAST..BAG 16.88 MG IV (02:02)
[2022-12-24 04:36] LABS: VBG Base Excess 5.6 mmol/L; VBG HCO3 28 mmol/L (22-26); VBG pCO2 36 mmHg; VBG pO2 72 mmHg
[2022-12-24 04:38] LABS: Venous Blood Gas Refer to POC result
[2022-12-24 04:55] LABS: Hematocrit 36.7 % (42.0-52.0); Hemoglobin 12.6 g/dl (14.0-18.0); Mean Corpuscular HGB Conc 34.3 g/dl (31.0-36.0); Mean Corpuscular Hemoglobin 34.1 pg (27.0-33.0); Mean Corpuscular Volume 99.2 fL (80.0-98.0); NRBC Pct Auto 0.1 /100WBC (0.0-0.2); Platelet Count 105 X10*3/uL (160-400); Red Cell Distribution Width 13.7 % (11.0-16.0)
[2022-12-24 05:00] LABS: WBC ABN SCTR FOR CBC 1
[2022-12-24 05:01] LABS: White Blood Count 14.4 X10*3/uL (4.8-10.8)
[2022-12-24 05:03] LABS: PTT Heparin Drip 48.2 SEC (53-77.9)
[2022-12-24 05:18] LABS: Band Neutrophils Percent 3 % (3-5); Lymphocytes Absolute Manual 3.6 X10*3/uL (1.2-4.9); Lymphocytes Percent Manual 25 % (20-40); Monocytes Absolute Manual 1.4 X10*3/uL (0.1-1.2); Monocytes Percent Manual 10 % (2-11); Neutrophils Absolute Manual 9.4 X10*3/uL (2.0-8.3); Neutrophils Percent Manual 62 % (45-73); Nucleated Red Blood Cells 1 /100WBC (0-0)
[2022-12-24 05:20] LABS: Macrocytosis 1+ (5-14) /OIF; Platelet Estimate SLIGHTLY DECREASED (NORMAL); Platelet Morphology Comment NORMAL; RBC Morphology NOTED; Toxic Vacuolation PRESENT
[2022-12-24 05:23] LABS: Alanine Aminotransferase 1158 U/L (0-40); Alkaline Phosphatase 94 U/L (39-117); Anion Gap 28 (12-20); Aspartate Amino Transferase 1414 U/L (5-37); Bilirubin Total 7.3 mg/dL (0.0-1.0); Blood Urea Nitrogen 108 mg/dL (9-16); Calcium 6.4 mg/dL (8.4-10.2); Carbon Dioxide 29 mmol/L (22-29); Chloride 93 mmol/L (96-108); Creatinine Clr Calc Pharmacy 8.3; Estimated Glomerular Filt Rate 5; Glucose Random 124 mg/dL (60-115); Magnesium 2.1 mg/dL (1.6-2.6); Phosphorus 6.3 mg/dL (2.7-4.5); Potassium 4.3 mmol/L (3.3-5.1); Sodium 146 mmol/L (135-145); Total Protein 5.5 g/dL (6.5-8.0)
[2022-12-24 05:24] LABS: Troponin-I High Sensitivity 1097.6 ng/L (<3.5-35.0)
[2022-12-24] MEDS: Pantoprazole Sodium 40 MG/10 ML VIAL IVPUSH ×2 (05:53→17:58)
[2022-12-24 07:29] LABS: Ammonia 76 umol/L (13-55)
[2022-12-24] MEDS: Chlorhexidine Gluc Oral Rinse 15 ML MOUTHWASH BUCCAL ×3 (09:16→21:53)
[2022-12-24] MEDS: Lactulose 20 GM/30 ML SOLUTION PO ×2 (09:16→21:53)
--- NOTE | 2022-12-24 10:15 | MHC.CLN ---
F/U INTUBATED, NOT SEDATED, NPO. DISCUSSED AT MD ROUNDS. ACUTE RENAL FAILURE WITH ELEVATED BUN, Cr. NOT CURRENTLY RECEIVING NUTRITION SUPPORT. FOLLOW WITH TEAM FOR PLAN OF CARE AND NUTRITION SUPPORT NEEDS.
--- NOTE | 2022-12-24 10:19 | MHC.CM.PN ---
Pt continues on ventilatory support following cardiac arrest. Pt with + NSTEMI findings, liver and renal failure. Pt has been off of sedation x 24 hours without return of neurological function: no corneal reflexes but does have spontaneous respiratory drive. Pt has a 30+ year of heavy ETOH use along w/polysubstance use. Pt's brother Taoism to arrive today or tomorrow from [place] to visit. Both him and his brother Augie are aware of pt's situation and will serve as decision makers. Pt has no advance directives or HCP per record search. CM to follow for assistance w/d/c needs:
--- NOTE | 2022-12-24 11:59 | PM.CCPN ---
Subjective Subjective Date of Service: 12/24/22 Interval History: 52-year-old longstanding chronic alcoholic and was found unresponsive toxicology positive for polysubstance abuse including cocaine and fentanyl and was found to be in a PE a mechanism requiring a resuscitation which restored circulation and then intubated upon arrival in the emergency room and has remained unresponsive since than but about 30 hours ago I discontinued his sedation including propofol and fentanyl none and he is beginning to show some signs of cough and gag which he did not have earlier and he does have spontaneous respiration but no other cranial nerve reflexes and today by laboratories he is becoming increasingly azotemic as he remains very markedly oliguric but not frankly acidotic he is not fluid overloaded because were measuring CVP and and he has a significantly reduced FiO2 and minute ventilatory requirement and he has slowly resolving transaminases on his liver functions but bilirubin remains elevated and bedside echo demonstrates preserved LV function with 60% ejection fraction his troponin profile is not that of an acute coronary syndrome and its follow-up EKG now day 2-3 days after the initial event shows no evidence of acute ST-T change in so I do not believe her dealing with an acute coronary syndrome and is no need to continue full anticoagulation Critical Care Time (minutes): 45 Physical Exam Vital Signs: Vital Signs: Last Vital Signs Temp 100.9 F H 12/24/22 11:00 Pulse 90 12/24/22 11:00 Resp 21 H 12/24/22 11:00 BP 131/66 12/24/22 11:00 Pulse Ox 93 12/24/22 11:00 O2 Del Method 12/24/22 11:00 FiO2 35 12/24/22 11:00 BMI result Body Mass Index 26.9 off sedation for 30 hours and beginning to show some signs of responsiveness to noxious stimuli bedside cardiac exam showing normal LV function abdomen is soft no organomegaly chest without adventitious sounds Objective Data Labs 12/24/22 04:25 12/24/22 04:25 Labs: Laboratory Results - last 24 hr 12/21/22 12/23/22 12/24/22 06:18 12:04 04:25 WBC RBC Hgb Hct MCV MCH MCHC RDW Plt Count MPV Immature Gran % (Auto) Neut % (Auto) Lymph % (Auto) [place] % (Auto) Eos % (Auto) Baso % (Auto) Lymph # (Auto) [place] # (Auto) Eos # (Auto) Baso # (Auto) Abs Immat Gran (auto) Absolute Neuts (auto) Absolute Nucleated RBC Nucleated RBC % (auto) Neutrophils % (Manual) Band Neutrophils % Lymphocytes % (Manual) Monocytes % (Manual) Abs Neuts (Manual) Lymphocytes # (Manual) Monocytes # (Manual) Nucleated RBCs Toxic Vacuolation Platelet Estimate Plt Morphology Comment RBC Morphology Macrocytosis Smear Path Review SEE NOTE aPTT Heparin Protocol 55.9 48.2 L VBG pH VBG pCO2 VBG pO2 VBG HCO3 VBG O2 Saturation VBG Base Excess Sodium Potassium Chloride Carbon Dioxide Anion Gap BUN Creatinine Estim Creat Clear Calc Estimated GFR Random Glucose Calcium Phosphorus Magnesium Total Bilirubin AST ALT Alkaline Phosphatase Ammonia Troponin I High Sens Total Protein Albumin 12/24/22 12/24/22 12/24/22 04:25 04:25 04:25 WBC 14.4 H RBC 3.70 L Hgb 12.6 L Hct 36.7 L MCV 99.2 H MCH 34.1 H MCHC 34.3 RDW 13.7 Plt Count 105 L MPV 11.0 Immature Gran % (Auto) Cancelled Neut % (Auto) Cancelled Lymph % (Auto) Cancelled [place] % (Auto) Cancelled Eos % (Auto) Cancelled Baso % (Auto) Cancelled Lymph # (Auto) Cancelled [place] # (Auto) Cancelled Eos # (Auto) Cancelled Baso # (Auto) Cancelled Abs Immat Gran (auto) Cancelled Absolute Neuts (auto) Cancelled Absolute Nucleated RBC 0.020 H Nucleated RBC % (auto) 0.1 Neutrophils % (Manual) 62 Band Neutrophils % 3 Lymphocytes % (Manual) 25 Monocytes % (Manual) 10 Abs Neuts (Manual) 9.4 H Lymphocytes # (Manual) 3.6 Monocytes # (Manual) 1.4 H Nucleated RBCs 1 H Toxic Vacuolation PRESENT Platelet Estimate SLIGHTLY DECREASED Plt Morphology Comment NORMAL RBC Morphology NOTED Macrocytosis 1+ (5-14) Smear Path Review aPTT Heparin Protocol VBG pH VBG pCO2 VBG pO2 VBG HCO3 VBG O2 Saturation VBG Base Excess Sodium 146 H Potassium 4.3 Chloride 93 L Carbon Dioxide 29 Anion Gap 28 H BUN 108 H Creatinine 11.66 H* Estim Creat Clear Calc 8.3 Estimated GFR 5 Random Glucose 124 H Calcium 6.4 L Phosphorus 6.3 H Magnesium 2.1 Total Bilirubin 7.3 H AST 1414 H ALT 1158 H Alkaline Phosphatase 94 Ammonia Troponin I High Sens 1097.6 H* D Total Protein 5.5 L Albumin 3.0 L 12/24/22 12/24/22 04:28 07:17 WBC RBC Hgb Hct MCV MCH MCHC RDW Plt Count MPV Immature Gran % (Auto) Neut % (Auto) Lymph % (Auto) [place] % (Auto) Eos % (Auto) Baso % (Auto) Lymph # (Auto) [place] # (Auto) Eos # (Auto) Baso # (Auto) Abs Immat Gran (auto) Absolute Neuts (auto) Absolute Nucleated RBC Nucleated RBC % (auto) Neutrophils % (Manual) Band Neutrophils % Lymphocytes % (Manual) Monocytes % (Manual) Abs Neuts (Manual) Lymphocytes # (Manual) Monocytes # (Manual) Nucleated RBCs Toxic Vacuolation Platelet Estimate Plt Morphology Comment RBC Morphology Macrocytosis Smear Path Review aPTT Heparin Protocol VBG pH 7.50 H VBG pCO2 36 VBG pO2 72 VBG HCO3 28 H VBG O2 Saturation 93.0 VBG Base Excess 5.6 Sodium Potassium Chloride Carbon Dioxide Anion Gap BUN Creatinine Estim Creat Clear Calc Estimated GFR Random Glucose Calcium Phosphorus Magnesium Total Bilirubin AST ALT Alkaline Phosphatase Ammonia 76 H Troponin I High Sens Total Protein Albumin Microbiology Microbiology Results: Microbiology 12/21/22 Unknown Urine Catheterized - Giron Catheter Urine Culture - Final No growth. Progress Note: A&P Assessment and plan (1) Acute renal failure: Status: Acute (2) NSTEMI (non-ST elevated myocardial infarction): Status: Acute (3) Increased ammonia level: Status: Acute (4) Ischemic hepatitis: Status: Acute (5) Acute respiratory failure: Status: Acute (6) Polysubstance abuse: Status: Acute (7) Cardiac arrest: Status: Acute (8) Substance use disorder: Status: Acute (9) Alcohol intoxication: Status: Acute (10) Encephalopathy: Status: Acute (11) Hypoglycemia: Status: Acute Plan so the plan is continued observation off the sedation for signs of returning cognitive function and again he was not treated with a targeted hypothermic therapy therapy but we continue to observe and treat any metabolic issues and at this point if he has got slowly improving oliguria as long as he is not acidotic nor fluid overloaded we will hold off on dialysis at least for overnight and then make a decision about dialysis but depending on degree of cognitive recovery Quality Stroke Does the patient have a stroke diagnosis?: No VTE Prior VTE?: No VTE Risk Level:: Medical - moderate - high VTE Device Contraindication: N/A - Device Ordered VTE Drug Contraindication: N/A - Med Ordered
[2022-12-24] MEDS: Norepinephrine Bitartrate/D5W 8 MG/250 ML PLAST..BAG 10.13 MG IV (19:46)
[2022-12-24] MEDS: Aspirin Enteric Coated 81 MG TABLET.DR PO (21:53)
[2022-12-25] VITALS (31 sets, daily range): BP systolic 115–153; BP diastolic 53–78; PULSE 20–100; RESP 13–24; TEMP 34.5–39; O2SAT 94–97; BMI 27.1
--- NOTE | 2022-12-25 | EEG_ITS ---
The background activity consists of low voltage 2 to 3 Hz delta, occasionally getting up to 4 to 5 Hz for brief periods. No paroxysmal features or epileptiform discharges were seen. Photic stimulation and hyperventilation were omitted. IMPRESSION: This is moderately sever abnormality in the EEG due to diffuse background slowing in the theta and mostly delta range consistent with diffuse encephalopathy. No epileptiform discharge was seen. There is no evidence of subclinical status epilepticus. MD [place] Guidry/AMADOR / [id number]
[2022-12-25] MEDS: Dextrose 5 % 1,000 ML 50 ML IVCONT ×2 (01:15→18:43)
[2022-12-25 01:28] LABS: Glucose, Whole Blood 139 mg/dL (60-115)
[2022-12-25 05:08] LABS: VBG HCO3 26 mmol/L (22-26); VBG pCO2 34 mmHg; VBG pH 7.48 (7.32-7.43); VBG pO2 56 mmHg
[2022-12-25 05:14] LABS: Basophils Absolute Auto 0.1 X10*3/uL (0.0-0.2); Basophils Percent Auto 0.8 % (0-2); Eosinophils Percent Auto 0.3 % (0-4); Hematocrit 37.6 % (42.0-52.0); Hemoglobin 12.9 g/dl (14.0-18.0); Imm Gran Abs Auto 0.05 X10*3/uL (0.00-0.03); Imm Gran Pct Auto 0.4 % (0.0-0.4); Lymphocytes Absolute Auto 1.8 X10*3/uL (1.2-4.9); Lymphocytes Percent Auto 15.5 % (20-40); MANUAL DIFF FLAG SCAN; Mean Corpuscular HGB Conc 34.3 g/dl (31.0-36.0); Mean Corpuscular Hemoglobin 33.3 pg (27.0-33.0); Mean Corpuscular Volume 97.2 fL (80.0-98.0); Mean Platelet Volume 10.8 fL (9.4-12.4); Monocytes Absolute Auto 1.7 X10*3/uL (0.1-1.2); Monocytes Percent Auto 14.9 % (2-11); Neutrophils Absolute Auto 7.9 x10*3/uL (2.0-8.3); Neutrophils Percent Auto 68.1 % (45-73); Platelet Count 105 X10*3/uL (160-400); Red Blood Count 3.87 X10*6/uL (4.60-5.80); Red Cell Distribution Width 14.1 % (11.0-16.0); SCAN SMEAR FLAG 1; White Blood Count 11.6 X10*3/uL (4.8-10.8)
[2022-12-25 05:19] LABS: Ammonia 64 umol/L (13-55)
[2022-12-25 05:23] LABS: Glucose, Whole Blood 126 mg/dL (60-115)
[2022-12-25] MEDS: Pantoprazole Sodium 40 MG/10 ML VIAL IVPUSH ×2 (05:36→16:01)
[2022-12-25 05:39] LABS: Troponin-I High Sensitivity 504.1 ng/L (<3.5-35.0)
[2022-12-25 05:53] LABS: Alanine Aminotransferase 790 U/L (0-40); Alkaline Phosphatase 104 U/L (39-117); Anion Gap 30 (12-20); Aspartate Amino Transferase 555 U/L (5-37); Bilirubin Total 7.3 mg/dL (0.0-1.0); Calcium 6.8 mg/dL (8.4-10.2); Carbon Dioxide 29 mmol/L (22-29); Chloride 94 mmol/L (96-108); Glucose Random 142 mg/dL (60-115); Magnesium 2.6 mg/dL (1.6-2.6); Phosphorus 6.7 mg/dL (2.7-4.5); Potassium 4.7 mmol/L (3.3-5.1); Sodium 148 mmol/L (135-145); Total Protein 5.7 g/dL (6.5-8.0)
[2022-12-25 06:00] LABS: Blood Urea Nitrogen 152 mg/dL (9-16); Creatinine Clr Calc Pharmacy 6.3; Estimated Glomerular Filt Rate 3
[2022-12-25 06:25] LABS: SLIDE REVIEW VERIFIED
[2022-12-25 06:49] LABS: Venous Blood Gas Refer to POC result
[2022-12-25 07:10] LABS: Lactic Acid 1.9 mmol/L (0.5-2.0)
[2022-12-25] MEDS: Lactulose 20 GM/30 ML SOLUTION PO ×2 (08:21→21:15)
[2022-12-25] MEDS: Chlorhexidine Gluc Oral Rinse 15 ML MOUTHWASH BUCCAL ×3 (10:16→21:15)
[2022-12-25] MEDS: Heparin Sodium,Porcine 5,000 UNIT/ML VIAL 5000 UNIT SUBCUT ×2 (10:17→17:09)
--- NOTE | 2022-12-25 10:24 | MHC.CLN ---
F/U INTUBATED, NOT SEDATED. TODAY IS DAY 5 NPO. DISCUSSED WITH TEAM AT ROUNDS. NOT CURRENTLY RECEIVING NUTRITION SUPPORT. FOLLOW WITH TEAM FOR PLAN OF CARE AND NUTRITION SUPPORT NEEDS.
--- NOTE | 2022-12-25 11:17 | MHC.CM.PN ---
Patient remains in ICU. Intubated 3/4. Patient has no HCP on file. His brother from [place] should be arriving today to see patient and discuss plan of care. Continue to monitor for d/c needs.
--- NOTE | 2022-12-25 11:58 | PM.CCPN ---
Subjective Subjective Date of Service: 12/25/22 Interval History: 52-year-old male almost a lifelong chronic alcoholic found unresponsive and apneic and in a a pulseless electrical activity required resuscitation restoring spontaneous circulation but the knee had a prolonged and profound lactic metabolic acidosis and has remained virtually an uric since he has been here does have spontaneous respiration and at this point is over 50 hours since all sedation was discontinued and we also note that his acute transaminitis is also resolving and is initially mildly elevated troponins also did seem to have resolved and over the 48 hours since sedation was stopped he has a intermittently a little cough response to suctioning but he does have positive corneal reflexes now no pupil reactivity they still remain small in symmetric but otherwise is unresponsive even to pain an EEG did show adeno considerable evidence of encephalopathy which obviously is hypoxic in nature BUN and creatinine continue to rise and he is considerably azotemic but not actually frankly uremic at this point and by CVP he does not have a volume overload that would require dialysis so that point will be discussed with with family in relation to his grim prospect for meaningful return of cognitive function Critical Care Time (minutes): 45 Physical Exam Vital Signs: Vital Signs: Last Vital Signs Temp 100.8 F H 12/25/22 11:00 Pulse 91 12/25/22 11:00 Resp 21 H 12/25/22 11:00 BP 140/75 H 12/25/22 11:00 Pulse Ox 94 12/25/22 11:00 O2 Del Method 12/25/22 11:00 FiO2 35 12/25/22 11:28 BMI result Body Mass Index 27.1 remains unresponsive even to deep pain but does have some presence of a brainstem reflexes otherwise is just remains flaccid no withdrawal response of bedside echo demonstrates globally normal left ventricular systolic wall motion chest x-ray remains clear though he has a low-grade temperature which could be central in origin but a peripheral venous duplex demonstrates no evidence of deep vein thrombosis abdomen is soft with no organomegaly skin intact with no cellulitis Objective Data Labs 12/25/22 04:55 12/25/22 04:55 Labs: Laboratory Results - last 24 hr 12/25/22 12/25/22 12/25/22 01:25 04:55 04:55 WBC 11.6 H RBC 3.87 L Hgb 12.9 L Hct 37.6 L MCV 97.2 MCH 33.3 H MCHC 34.3 RDW 14.1 Plt Count 105 L MPV 10.8 Immature Gran % (Auto) 0.4 Neut % (Auto) 68.1 Lymph % (Auto) 15.5 L [place] % (Auto) 14.9 H Eos % (Auto) 0.3 Baso % (Auto) 0.8 Lymph # (Auto) 1.8 [place] # (Auto) 1.7 H Eos # (Auto) 0.0 Baso # (Auto) 0.1 Abs Immat Gran (auto) 0.05 H Absolute Neuts (auto) 7.9 Absolute Nucleated RBC 0.000 Nucleated RBC % (auto) 0.0 Smear Tech's Comments VERIFIED VBG pH VBG pCO2 VBG pO2 VBG HCO3 VBG O2 Saturation VBG Base Excess Sodium 148 H Potassium 4.7 Chloride 94 L Carbon Dioxide 29 Anion Gap 30 H BUN 152 H Creatinine 15.27 H* Estim Creat Clear Calc 6.3 Estimated GFR 3 POC Glucose 139 H Random Glucose 142 H Lactic Acid Calcium 6.8 L D Phosphorus 6.7 H Magnesium 2.6 Total Bilirubin 7.3 H AST 555 H ALT 790 H Alkaline Phosphatase 104 Ammonia Troponin I High Sens Total Protein 5.7 L Albumin 3.0 L 12/25/22 12/25/22 12/25/22 04:55 04:55 04:59 WBC RBC Hgb Hct MCV MCH MCHC RDW Plt Count MPV Immature Gran % (Auto) Neut % (Auto) Lymph % (Auto) [place] % (Auto) Eos % (Auto) Baso % (Auto) Lymph # (Auto) [place] # (Auto) Eos # (Auto) Baso # (Auto) Abs Immat Gran (auto) Absolute Neuts (auto) Absolute Nucleated RBC Nucleated RBC % (auto) Smear Tech's Comments VBG pH 7.48 H VBG pCO2 34 VBG pO2 56 VBG HCO3 26 VBG O2 Saturation 83.0 VBG Base Excess 3.0 Sodium Potassium Chloride Carbon Dioxide Anion Gap BUN Creatinine Estim Creat Clear Calc Estimated GFR POC Glucose Random Glucose Lactic Acid Calcium Phosphorus Magnesium Total Bilirubin AST ALT Alkaline Phosphatase Ammonia 64 H Troponin I High Sens 504.1 H* D Total Protein Albumin 12/25/22 12/25/22 05:16 06:47 WBC RBC Hgb Hct MCV MCH MCHC RDW Plt Count MPV Immature Gran % (Auto) Neut % (Auto) Lymph % (Auto) [place] % (Auto) Eos % (Auto) Baso % (Auto) Lymph # (Auto) [place] # (Auto) Eos # (Auto) Baso # (Auto) Abs Immat Gran (auto) Absolute Neuts (auto) Absolute Nucleated RBC Nucleated RBC % (auto) Smear Tech's Comments VBG pH VBG pCO2 VBG pO2 VBG HCO3 VBG O2 Saturation VBG Base Excess Sodium Potassium Chloride Carbon Dioxide Anion Gap BUN Creatinine Estim Creat Clear Calc Estimated GFR POC Glucose 126 H Random Glucose Lactic Acid 1.9 Calcium Phosphorus Magnesium Total Bilirubin AST ALT Alkaline Phosphatase Ammonia Troponin I High Sens Total Protein Albumin Microbiology Microbiology Results: Microbiology 12/21/22 Unknown Urine Catheterized - Giron Catheter Urine Culture - Final No growth. Progress Note: A&P Assessment and plan (1) Increased ammonia level: Status: Acute (2) NSTEMI (non-ST elevated myocardial infarction): Status: Acute (3) Acute renal failure: Status: Acute (4) Ischemic hepatitis: Status: Acute (5) Acute respiratory failure: Status: Acute (6) Polysubstance abuse: Status: Acute (7) Cardiac arrest: Status: Acute (8) Substance use disorder: Status: Acute (9) Alcohol intoxication: Status: Acute (10) Encephalopathy: Status: Acute (11) Hypoglycemia: Status: Acute Plan the plan at this point is to discuss whether not to place a dialysis catheter and if so what amount of additional time without support to we observe for regaining of cognitive function clearly prognosis is grim Quality Stroke Does the patient have a stroke diagnosis?: No VTE Prior VTE?: No VTE Risk Level:: Medical - moderate - high VTE Device Contraindication: N/A - Device Ordered VTE Drug Contraindication: N/A - Med Ordered
[2022-12-25 12:10] LABS: Glucose, Whole Blood 154 mg/dL (60-115)
[2022-12-25 18:41] LABS: Glucose, Whole Blood 125 mg/dL (60-115)
[2022-12-25] MEDS: Aspirin Enteric Coated 81 MG TABLET.DR PO (21:15)
[2022-12-25 23:47] LABS: Glucose, Whole Blood 129 mg/dL (60-115)
[2022-12-26] VITALS (31 sets, daily range): BP systolic 113–150; BP diastolic 59–70; PULSE 67–95; RESP 12–21; TEMP 34.1–38.5; O2SAT 93–98; BMI 26.9
[2022-12-26] MEDS: Heparin Sodium,Porcine 5,000 UNIT/ML VIAL 5000 UNIT SUBCUT ×3 (02:31→18:07)
[2022-12-26 04:50] LABS: VBG Base Excess 1.3 mmol/L; VBG HCO3 24 mmol/L (22-26); VBG pCO2 33 mmHg; VBG pH 7.46 (7.32-7.43); VBG pO2 77 mmHg
[2022-12-26 04:52] LABS: Basophils Absolute Auto 0.1 X10*3/uL (0.0-0.2); Basophils Percent Auto 0.7 % (0-2); Eosinophils Absolute Auto 0.1 X10*3/uL (0.0-0.4); Eosinophils Percent Auto 0.9 % (0-4); Hematocrit 36.1 % (42.0-52.0); Hemoglobin 12.6 g/dl (14.0-18.0); Imm Gran Abs Auto 0.06 X10*3/uL (0.00-0.03); Imm Gran Pct Auto 0.6 % (0.0-0.4); Lymphocytes Absolute Auto 1.9 X10*3/uL (1.2-4.9); Lymphocytes Percent Auto 20.2 % (20-40); MANUAL DIFF FLAG SCAN; Mean Corpuscular HGB Conc 34.9 g/dl (31.0-36.0); Mean Corpuscular Hemoglobin 33.3 pg (27.0-33.0); Mean Corpuscular Volume 95.5 fL (80.0-98.0); Mean Platelet Volume 11.2 fL (9.4-12.4); Monocytes Percent Auto 21.2 % (2-11); Neutrophils Absolute Auto 5.4 x10*3/uL (2.0-8.3); Neutrophils Percent Auto 56.4 % (45-73); Red Blood Count 3.78 X10*6/uL (4.60-5.80); SCAN SMEAR FLAG 1; Venous Blood Gas Refer to POC result; White Blood Count 9.6 X10*3/uL (4.8-10.8)
[2022-12-26 04:55] LABS: Platelet Count 98 X10*3/uL (160-400)
[2022-12-26 05:03] LABS: Ammonia 58 umol/L (13-55)
[2022-12-26 05:11] LABS: SLIDE REVIEW VERIFIED
[2022-12-26 05:22] LABS: Alanine Aminotransferase 516 U/L (0-40); Albumin Level 2.9 g/dL (3.5-5.0); Alkaline Phosphatase 97 U/L (39-117); Anion Gap 33 (12-20); Aspartate Amino Transferase 249 U/L (5-37); Bilirubin Total 8.2 mg/dL (0.0-1.0); Calcium 6.6 mg/dL (8.4-10.2); Carbon Dioxide 26 mmol/L (22-29); Chloride 93 mmol/L (96-108); Creatinine Clr Calc Pharmacy 5.2; Estimated Glomerular Filt Rate 3; Glucose Random 134 mg/dL (60-115); Magnesium 2.9 mg/dL (1.6-2.6); Phosphorus 7.3 mg/dL (2.7-4.5); Potassium 4.9 mmol/L (3.3-5.1); Sodium 147 mmol/L (135-145); Total Protein 5.6 g/dL (6.5-8.0)
--- NOTE | 2022-12-26 07:37 | W.PM.CCHP ---
Procedures Date of Service Date of Service: 12/26/22 Central Line Placement Left IJ: Central Line Comments: PROCEDURE: ?Insertion left internal jugular Mahurkar double lumen hemodialysis catheter. The left neck was widely prepped and draped in full sterile fashion.? Under US? guidance, the left IJ vein was cannulated on the 1st pass of the 18 g thin wall needle, with return of dark, nonpulsatile blood. ? The wire was threaded without incident. The first dilator was passed, then the 12Fr x 20 cm dialysis catheter was threaded over the wire via the Seldinger technique without incident. The wire was removed and there was good blood return x2. Both lumens were flushed. ? The catheter was sutured x2 and a Biopatch and dry sterile dressing were applied. Consent for Procedure: Emergent-no informed consent obtained Time out performed: Yes Sterile Technique Used: Yes Patient placed on monitor/pulse ox: Yes prep: mask, gown and gloves Central line prep: Chlorhexidine scrub and sterile drapes applied Ultrasound used for placement: Yes Central line lumen inserted: double Post procedure: sutured in place, good blood return, all ports aspirated, flushed, capped and sterile dressing applied Post procedure x-ray: tip of catheter in good position and no pneumothorax seen Patient tolerated procedure: well and no complications Complications: none
[2022-12-26] MEDS: Chlorhexidine Gluc Oral Rinse 15 ML MOUTHWASH BUCCAL ×3 (07:48→21:16)
[2022-12-26] MEDS: Lactulose 20 GM/30 ML SOLUTION PO ×2 (07:48→21:16)
--- NOTE | 2022-12-26 09:31 | MHC.CLN ---
F/U INTUBATED, NOT SEDATED. CONTINUES NPO. RECEIVING IV FLUIDS, D5w. HEMODIALYSIS CATH INSERTED TODAY. INCREASING BUN AND Cr. NOT CURRENTLY RECEIVING NUTRITION SUPPORT. FOLLOW WITH TEAM FOR PLAN OF CARE AND NUTRITION SUPPORT NEEDS.
[2022-12-26 12:56] LABS: Glucose, Whole Blood 117 mg/dL (60-115)
--- NOTE | 2022-12-26 13:19 | P.PNCC_ITS ---
Subjective Subjective Date of Service: 12/26/22 Interval History: 52-year-old who had suffered a cardiac arrest requiring CPR but with a preceding a down time that was difficult to gauge post resuscitation was intubated in the emergency room and his initial presentation was a PE a and he was witnessed to have become apneic and apparently of cocaine and fentanyl as well as alcohol in the in his system and he has been intubated and initially sedated but he has been off sedation now for 72 hours still unresponsive but the also had acute tubular necrosis and he has been an uric now for 5 days at this point and is profoundly azotemic and he is finally developing a positive anion gap metabolic acidosis presumably from the renal failure as he is lactate negative a persistent low-grade temperature with no apparent source of infection but cultures are pending and he is not on any empiric antibiotics but he does have some brainstem function on pupil still remains small but symmetric in on read unresponsive to to light and does not have doll's eyes but he does have corneal reflexes and on and does have a very reduced but present cough and gag and he does produce spontaneous respiration In discussion with the family who are hopeful that in more time he might start to develop some meaningful cognitive function we expressed the need to to place a temporary dialysis catheter for for the purpose of dialysis which they agree to this was accomplished by the left internal jugular vein to the superior vena cava and we will probably do a short dialysis today and then probably maybe 1 or 2 consider additional consecutive days so obviously we will relieve any other metabolic issue that could be depressing his responsiveness and yesterday's EEG by the way did demonstrate a moderate to early severe encephalopathy presumably hypoxic in origin Critical Care Time (minutes): 45 Physical Exam Vital Signs: Vital Signs: Last Vital Signs Temp 100.9 F H 12/26/22 13:00 Pulse 79 12/26/22 13:00 Resp 16 12/26/22 13:00 BP 136/60 12/26/22 13:00 Pulse Ox 95 12/26/22 13:00 O2 Del Method 12/26/22 13:00 O2 Flow Rate 35 12/26/22 06:00 FiO2 35 12/26/22 13:00 BMI result Body Mass Index 26.9 Remains unresponsive and and 4 extremity flaccid CVP still remains below 10 relatively unchanged and he has good bilateral carotid upstrokes no bruits no gallops no neck vein distension Abdomen is soft with no organomegaly Lungs clear without adventitious sounds Objective Data Labs 12/26/22 04:38 12/26/22 04:38 Labs: Laboratory Results - last 24 hr 12/25/22 12/25/22 12/26/22 18:30 23:31 04:38 WBC 9.6 RBC 3.78 L Hgb 12.6 L Hct 36.1 L MCV 95.5 MCH 33.3 H MCHC 34.9 RDW 14.0 Plt Count 98 L MPV 11.2 Immature Gran % (Auto) 0.6 H Neut % (Auto) 56.4 Lymph % (Auto) 20.2 [place] % (Auto) 21.2 H Eos % (Auto) 0.9 Baso % (Auto) 0.7 Lymph # (Auto) 1.9 [place] # (Auto) 2.0 H Eos # (Auto) 0.1 Baso # (Auto) 0.1 Abs Immat Gran (auto) 0.06 H Absolute Neuts (auto) 5.4 Absolute Nucleated RBC 0.000 Nucleated RBC % (auto) 0.0 Smear Tech's Comments VERIFIED VBG pH VBG pCO2 VBG pO2 VBG HCO3 VBG O2 Saturation VBG Base Excess Sodium Potassium Chloride Carbon Dioxide Anion Gap BUN Creatinine Estim Creat Clear Calc Estimated GFR POC Glucose 125 H 129 H Random Glucose Calcium Phosphorus Magnesium Total Bilirubin AST ALT Alkaline Phosphatase Ammonia Total Protein Albumin 12/26/22 12/26/22 12/26/22 04:38 04:38 04:43 WBC RBC Hgb Hct MCV MCH MCHC RDW Plt Count MPV Immature Gran % (Auto) Neut % (Auto) Lymph % (Auto) [place] % (Auto) Eos % (Auto) Baso % (Auto) Lymph # (Auto) [place] # (Auto) Eos # (Auto) Baso # (Auto) Abs Immat Gran (auto) Absolute Neuts (auto) Absolute Nucleated RBC Nucleated RBC % (auto) Smear Tech's Comments VBG pH 7.46 H VBG pCO2 33 VBG pO2 77 VBG HCO3 24 VBG O2 Saturation 94.0 VBG Base Excess 1.3 Sodium 147 H Potassium 4.9 Chloride 93 L Carbon Dioxide 26 Anion Gap 33 H BUN 195 H Creatinine 18.51 H* Estim Creat Clear Calc 5.2 Estimated GFR 3 POC Glucose Random Glucose 134 H Calcium 6.6 L Phosphorus 7.3 H Magnesium 2.9 H Total Bilirubin 8.2 H AST 249 H ALT 516 H Alkaline Phosphatase 97 Ammonia 58 H Total Protein 5.6 L Albumin 2.9 L 12/26/22 12:53 WBC RBC Hgb Hct MCV MCH MCHC RDW Plt Count MPV Immature Gran % (Auto) Neut % (Auto) Lymph % (Auto) [place] % (Auto) Eos % (Auto) Baso % (Auto) Lymph # (Auto) [place] # (Auto) Eos # (Auto) Baso # (Auto) Abs Immat Gran (auto) Absolute Neuts (auto) Absolute Nucleated RBC Nucleated RBC % (auto) Smear Tech's Comments VBG pH VBG pCO2 VBG pO2 VBG HCO3 VBG O2 Saturation VBG Base Excess Sodium Potassium Chloride Carbon Dioxide Anion Gap BUN Creatinine Estim Creat Clear Calc Estimated GFR POC Glucose 117 H Random Glucose Calcium Phosphorus Magnesium Total Bilirubin AST ALT Alkaline Phosphatase Ammonia Total Protein Albumin Microbiology Microbiology Results: Microbiology 12/25/22 09:54 Blood - Venous Blood Culture - Preliminary No growth after 24 hours. 12/25/22 09:58 Blood - Venous Blood Culture - Preliminary No growth after 24 hours. 12/21/22 Unknown Urine Catheterized - Giron Catheter Urine Culture - Final No growth. Progress Note: A&P Assessment and plan (1) Increased ammonia level: Status: Acute (2) NSTEMI (non-ST elevated myocardial infarction): Status: Acute (3) Acute renal failure: Status: Acute (4) Ischemic hepatitis: Status: Acute (5) Acute respiratory failure: Status: Acute (6) Polysubstance abuse: Status: Acute (7) Cardiac arrest: Status: Acute (8) Substance use disorder: Status: Acute (9) Alcohol intoxication: Status: Acute (10) Encephalopathy: Status: Acute (11) Hypoglycemia: Status: Acute Plan The plan again is for dialysis today and await cultures Quality Stroke Does the patient have a stroke diagnosis?: No VTE Prior VTE?: No VTE Risk Level:: Medical - moderate - high VTE Device Contraindication: N/A - Device Ordered VTE Drug Contraindication: N/A - Med Ordered
--- NOTE | 2022-12-26 14:01 | MHC.CM.PN ---
Pt remains vented in ICU after cardiac arrest: held discussions with family re: goals of care: plan is to give pt more time to hopefully show cognitive function return: Temp HD cath placed and pt began HD treatments. CM to follow in the background until more is known about his functional abilities at which time referrals can be made for either LTAC or STR.
[2022-12-26 15:45] LABS: Blood Urea Nitrogen 183 mg/dL (9-16)
[2022-12-26] MEDS: Dextrose 5 % 1,000 ML 50 ML IVCONT (18:09)
[2022-12-26 18:13] LABS: Glucose, Whole Blood 123 mg/dL (60-115)
[2022-12-26] MEDS: Aspirin Enteric Coated 81 MG TABLET.DR PO (21:16)
[2022-12-26] MEDS: Midazolam HCl/PF 2 MG/2 ML VIAL IVPUSH ×2 (22:55→23:30)
[2022-12-26 23:52] LABS: Glucose, Whole Blood 127 mg/dL (60-115)
[2022-12-27] VITALS (28 sets, daily range): BP systolic 102–135; BP diastolic 48–75; PULSE 65–85; RESP 13–24; TEMP 34.9–38.5; O2SAT 92–98; BMI 26.9
--- NOTE | 2022-12-27 01:21 | CONS_ITS ---
DATE OF SERVICE: 12/25/2022 REASON FOR CONSULTATION: I was asked to see patient to assist in evaluation and management of patient's severe renal dysfunction, and the question need for dialysis with acute kidney injury. HISTORY OF PRESENT ILLNESS: In summary, patient is a 52-year-old gentleman who was admitted on December 21 with an [id number] PEA arrest and downtime is uncleared. He did have return to spontaneous circulation on arrival to the emergency room. 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 Apparently, the sedation was stopped and he has not had any significant response. There is mention made of intermittent little cough responses to suctioning. There is mention made of some positive corneal reflexes, but no pupil reactivity. They remain small and symmetric. He has had anuric acute kidney injury and his creatinine on admission was 2.84 and has steadily increased by 2 to 3 mg% per day and today on the , the day of consultation, his creatinine was 15.27. The metrologist asked me to see the patient and is going to contact the family about whether or not to do dialysis. PAST MEDICAL HISTORY: It is unclear what his past medical history is. Information was obtained from electronic medical record. REVIEW OF SYSTEMS: Unobtainable. MEDICATIONS: As an outpatient, unobtainable. Current medications are noted in the MAR. PHYSICAL EXAMINATION: GENERAL: On the ventilator, unresponsive. VITAL SIGNS: Blood pressure of 140/70. Urine output has been 50 cc over the past 24 hours. HEENT: Mucous membranes moist. LUNGS: Breath sounds bilaterally. CARDIAC: Regular rate. ABDOMEN: Soft. EXTREMITIES: Show no edema. LABORATORY DATA: Creatinine of 15.3, sodium of 148, potassium of 4.7, calcium of 6.8, phosphorus of 6.7, total bilirubin of 7.3. Hemoglobin of 12.9, platelets of 105. Has a urinalysis from admission, which showed 4+ protein. IMPRESSION: ANURIC SEVERE RENAL FAILURE IN A PATIENT WITH CARDIAC ARREST FOR AN UNWITNESSED EVENT, NOW WITH WHAT APPEARS TO BE SEVERE ANOXIC BRAIN INJURY AND ANURIC ACUTE KIDNEY INJURY. 1. Anuric acute kidney injury. I discussed with the metrologist my recommendation to obtain an ultrasound to rule out obstructive uropathy. Add on CPKs since he had rhabdomyolysis as a cause of his acute kidney injury. 2. Encephalopathy and question of severe anoxic brain injury. He is being evaluated by the metrologist to see if any further evaluation is warranted. RECOMMENDATIONS: At this time include go ahead and initiate dialysis tomorrow. The ICU doctor is going to confirm with family if they want to do that and will place a temporary dialysis catheter. We will obtain a bedside ultrasound. We will add CPKs to the prior labs. We will follow the patient with the team. MD BENEDICT Anaya/AMADOR / [phone]
[2022-12-27] MEDS: Heparin Sodium,Porcine 5,000 UNIT/ML VIAL 5000 UNIT SUBCUT (03:11)
[2022-12-27] MEDS: Midazolam HCl/PF 2 MG/2 ML VIAL IVPUSH (03:36)
[2022-12-27 05:00] LABS: VBG HCO3 21 mmol/L (22-26); VBG pCO2 30 mmHg; VBG pH 7.44 (7.32-7.43); VBG pO2 63 mmHg
[2022-12-27 05:05] LABS: Venous Blood Gas Refer to POC result
[2022-12-27 05:09] LABS: Basophils Absolute Auto 0.1 X10*3/uL (0.0-0.2); Basophils Percent Auto 1.2 % (0-2); Eosinophils Absolute Auto 0.2 X10*3/uL (0.0-0.4); Eosinophils Percent Auto 2.1 % (0-4); Hematocrit 34.6 % (42.0-52.0); Imm Gran Abs Auto 0.24 X10*3/uL (0.00-0.03); Imm Gran Pct Auto 2.2 % (0.0-0.4); Lymphocytes Absolute Auto 1.4 X10*3/uL (1.2-4.9); Lymphocytes Percent Auto 12.9 % (20-40); MANUAL DIFF FLAG SCAN; Mean Corpuscular HGB Conc 34.7 g/dl (31.0-36.0); Mean Corpuscular Hemoglobin 33.9 pg (27.0-33.0); Mean Corpuscular Volume 97.7 fL (80.0-98.0); Mean Platelet Volume 12.3 fL (9.4-12.4); Monocytes Absolute Auto 1.6 X10*3/uL (0.1-1.2); Monocytes Percent Auto 14.7 % (2-11); Neutrophils Absolute Auto 7.3 x10*3/uL (2.0-8.3); Neutrophils Percent Auto 66.9 % (45-73); Red Blood Count 3.54 X10*6/uL (4.60-5.80); Red Cell Distribution Width 13.8 % (11.0-16.0); SCAN SMEAR FLAG 1; White Blood Count 10.9 X10*3/uL (4.8-10.8)
[2022-12-27 05:13] LABS: Platelet Count 68 X10*3/uL (160-400)
[2022-12-27 05:16] LABS: Ammonia 52 umol/L (13-55)
[2022-12-27 05:28] LABS: SLIDE REVIEW VERIFIED
[2022-12-27 05:42] LABS: Alanine Aminotransferase 342 U/L (0-40); Albumin Level 2.7 g/dL (3.5-5.0); Alkaline Phosphatase 101 U/L (39-117); Anion Gap 28 (12-20); Aspartate Amino Transferase 143 U/L (5-37); Bilirubin Total 9.7 mg/dL (0.0-1.0); Calcium 7.1 mg/dL (8.4-10.2); Carbon Dioxide 23 mmol/L (22-29); Chloride 95 mmol/L (96-108); Glucose Random 121 mg/dL (60-115); Magnesium 2.7 mg/dL (1.6-2.6); Phosphorus 7.3 mg/dL (2.7-4.5); Potassium 4.7 mmol/L (3.3-5.1); Sodium 141 mmol/L (135-145); Total Protein 5.6 g/dL (6.5-8.0)
[2022-12-27 05:46] LABS: Blood Urea Nitrogen 162 mg/dL (9-16); Creatinine Clr Calc Pharmacy 5.5; Estimated Glomerular Filt Rate 3
[2022-12-27] MEDS: Albumin Human 25 % 100 ML IV (06:11)
[2022-12-27] MEDS: Chlorhexidine Gluc Oral Rinse 15 ML MOUTHWASH BUCCAL ×3 (08:12→20:40)
[2022-12-27] MEDS: Lactulose 20 GM/30 ML SOLUTION PO ×2 (08:12→20:40)
[2022-12-27 09:44] LABS: HBS Num1 0.29 mIU/mL (0-7.99); HBc Num1 0.16 S/CO (0.00-0.79); HBsAGNum1 0.26 S/CO (0.00-0.99); Hepatitis B Core Antibody Nonreactive (Nonreactive); Hepatitis B Surface Antigen Negative (Negative); ~Hepatitis B Surface Antibody NONREACTIVE (Nonreactive)
--- NOTE | 2022-12-27 10:13 | MHC.CLN ---
F/U HD CATH INSERTED 12/26 AND DIALYSIS STARTED. TUBE FEED TO START 12/27. ORDER FOR NEPRO AT MAX GOAL RATE 60 ML PER HOUR. FREE WATER FLUSH 240 ML Q 4 HOURS. PROVIDES: 2592 KCALS (28.8 KCALS/KG); 116.6 G PROTEIN 91.29 G/KG); FREE WATER FROM FORMULA 1047 ML PLUS FLUSH 1440 VI=4278 ML (27.6 ML/KG). FOLLOW FOR TUBE FEED TOLERANCE AND LABS. CONTINUE TO FOLLOW PLAN OF CARE WITH TEAM.
[2022-12-27 11:35] LABS: Glucose, Whole Blood 109 mg/dL (60-115)
--- NOTE | 2022-12-27 12:32 | PM.CCPN ---
Subjective Subjective Date of Service: 12/27/22 Interval History: 52-year-old male with polysubstance abuse including cocaine fentanyl and alcohol intoxication and as a background he has been a lifelong alcoholic found apneic EMS was called and they found him and pulseless electrical activity there was a resuscitation and jainism of spontaneous circulation and then brought to the emergency room where he was intubated and it has been a week and he has remained unresponsive no purposeful movement whatsoever no response even to deep pain Missed mixed examination in relation to brainstem reflexes he has spontaneous respiration but no gag intermittently very very mild cough he has no doll's eyes no he has got small symmetrical bilateral pupils with no light response but he has got positive corneals but the he remains flaccid and causes no purposeful movement. He had multiple metabolic issues including the high hypernatremia low-grade fever in and it appears now that he is growing gram-negative rods with the 4+ polys out of the sputum so there might have been a little bit of low-grade aspiration at the time he had lost the consciousness and he went into acute renal failure and has been an uric for a week at this point and then increasingly azotemic over time but yesterday he developed a positive anion gap metabolic acidosis from the renal failure so we had his 1st treatment then with minimal effect a 2nd short treatment today and I will have a 3rd 1 tomorrow in and the elevated ammonia level from his hepatic failure was treated with lactulose and it is considerably improved so we basically treating all of the peripheral metabolic issues that would contribute to his mental status and the clearly if by Friday or Friday he does not awaken with cognitive function I think the prognosis than his proven to be grim and EEG does show that he has a profound encephalopathy Critical Care Time (minutes): 45 Physical Exam Vital Signs: Vital Signs: Last Vital Signs Temp 99.5 F 12/27/22 12:00 Pulse 75 12/27/22 12:00 Resp 24 H 12/27/22 12:00 BP 125/68 12/27/22 12:00 Pulse Ox 95 12/27/22 12:00 O2 Del Method 12/27/22 12:00 O2 Flow Rate 35 12/26/22 06:00 FiO2 35 12/27/22 12:00 BMI result Body Mass Index 26.9 Remains flaccid and unresponsive to deep pain Cardiovascular exam is unchanged with good bilateral carotid upstrokes no neck vein distension CVP between 0 in 5 with fair consistency Lungs without adventitious sounds and his chest x-ray no distinct infiltrate Abdomen is soft nontender no organomegaly Scan without any pressure sores no cellulitis etc. Objective Data Labs 12/27/22 04:50 12/27/22 04:50 Labs: Laboratory Results - last 24 hr 12/26/22 12/26/22 12/26/22 04:38 12:53 18:05 WBC RBC Hgb Hct MCV MCH MCHC RDW Plt Count MPV Immature Gran % (Auto) Neut % (Auto) Lymph % (Auto) [place] % (Auto) Eos % (Auto) Baso % (Auto) Lymph # (Auto) [place] # (Auto) Eos # (Auto) Baso # (Auto) Abs Immat Gran (auto) Absolute Neuts (auto) Absolute Nucleated RBC Nucleated RBC % (auto) Smear Tech's Comments VBG pH VBG pCO2 VBG pO2 VBG HCO3 VBG O2 Saturation VBG Base Excess Sodium Potassium Chloride Carbon Dioxide Anion Gap BUN 183 H Creatinine Estim Creat Clear Calc Estimated GFR POC Glucose 117 H 123 H Random Glucose Calcium Phosphorus Magnesium Total Bilirubin AST ALT Alkaline Phosphatase Ammonia Total Creatine Kinase 1443 H Total Protein Albumin 12/26/22 12/27/22 12/27/22 23:40 04:50 04:50 WBC 10.9 H RBC 3.54 L Hgb 12.0 L Hct 34.6 L MCV 97.7 MCH 33.9 H MCHC 34.7 RDW 13.8 Plt Count 68 L D MPV 12.3 Immature Gran % (Auto) 2.2 H Neut % (Auto) 66.9 Lymph % (Auto) 12.9 L [place] % (Auto) 14.7 H Eos % (Auto) 2.1 Baso % (Auto) 1.2 Lymph # (Auto) 1.4 [place] # (Auto) 1.6 H Eos # (Auto) 0.2 Baso # (Auto) 0.1 Abs Immat Gran (auto) 0.24 H Absolute Neuts (auto) 7.3 Absolute Nucleated RBC 0.000 Nucleated RBC % (auto) 0.0 Smear Tech's Comments VERIFIED VBG pH VBG pCO2 VBG pO2 VBG HCO3 VBG O2 Saturation VBG Base Excess Sodium 141 Potassium 4.7 Chloride 95 L Carbon Dioxide 23 Anion Gap 28 H BUN 162 H Creatinine 17.52 H* Estim Creat Clear Calc 5.5 Estimated GFR 3 POC Glucose 127 H Random Glucose 121 H Calcium 7.1 L D Phosphorus 7.3 H Magnesium 2.7 H Total Bilirubin 9.7 H AST 143 H ALT 342 H Alkaline Phosphatase 101 Ammonia Total Creatine Kinase Total Protein 5.6 L Albumin 2.7 L 12/27/22 12/27/22 12/27/22 04:50 04:52 11:32 WBC RBC Hgb Hct MCV MCH MCHC RDW Plt Count MPV Immature Gran % (Auto) Neut % (Auto) Lymph % (Auto) [place] % (Auto) Eos % (Auto) Baso % (Auto) Lymph # (Auto) [place] # (Auto) Eos # (Auto) Baso # (Auto) Abs Immat Gran (auto) Absolute Neuts (auto) Absolute Nucleated RBC Nucleated RBC % (auto) Smear Tech's Comments VBG pH 7.44 H VBG pCO2 30 VBG pO2 63 VBG HCO3 21 L VBG O2 Saturation 89.0 VBG Base Excess -2.0 Sodium Potassium Chloride Carbon Dioxide Anion Gap BUN Creatinine Estim Creat Clear Calc Estimated GFR POC Glucose 109 Random Glucose Calcium Phosphorus Magnesium Total Bilirubin AST ALT Alkaline Phosphatase Ammonia 52 Total Creatine Kinase Total Protein Albumin Microbiology Microbiology Results: Microbiology 12/25/22 09:58 Blood - Venous Blood Culture - Preliminary No growth after 48 hours. 12/25/22 09:54 Blood - Venous Blood Culture - Preliminary No growth after 48 hours. 12/26/22 08:44 Sputum - Suctioned Gram Stain - Final 12/26/22 08:44 Sputum - Suctioned Sputum Culture - Preliminary Gram negative rohith 12/21/22 Unknown Urine Catheterized - Giron Catheter Urine Culture - Final No growth. Progress Note: A&P Assessment and plan (1) Increased ammonia level: Status: Acute (2) NSTEMI (non-ST elevated myocardial infarction): Status: Acute (3) Acute renal failure: Status: Acute (4) Ischemic hepatitis: Status: Acute (5) Acute respiratory failure: Status: Acute (6) Polysubstance abuse: Status: Acute (7) Cardiac arrest: Status: Acute (8) Substance use disorder: Status: Acute (9) Alcohol intoxication: Status: Acute (10) Encephalopathy: Status: Acute (11) Hypoglycemia: Status: Acute Plan So the plan is dialysis at least 2 more treatments and if we have no greater degree of cognitive improvement we might be on firm a ground to say that the prognosis for cognitive return is pretty dismal and at this point we are going to continue giving meropenem after each dialysis treatment to treat what is presumptively an aspiration mechanism probably taking place at the time of the initial respiratory arrest Quality Stroke Does the patient have a stroke diagnosis?: No VTE Prior VTE?: No VTE Risk Level:: Medical - moderate - high VTE Device Contraindication: N/A - Device Ordered VTE Drug Contraindication: N/A - Med Ordered
[2022-12-27] MEDS: Midazolam HCl/PF 2 MG/2 ML VIAL 4 MG IVPUSH ×2 (14:07→16:46)
[2022-12-27] MEDS: levETIRAcetam in NaCl (iso-os) 1,000 MG/100 ML PIGGYBACK 400 MG IV (14:45)
--- NOTE | 2022-12-27 15:20 | MHC.CM.PN ---
Pt continues care in ICU : on ventilatory support and just began HD. Pt has been off of sedating medication without any improvement in cognition. MD states to wait until early next week and if pt has still not made any progress, another goals of care discussion with pt's brothers needs to occur. CM to follow for d/c planning needs.
--- NOTE | 2022-12-27 15:39 | PM.PNNEP ---
Subjective Subjective Date of Service: 12/27/22 Interval history: 52-year-old male with polysubstance abuse including cocaine fentanyl and alcohol intoxication and as a background he has been a lifelong alcoholic found apneic Now on HD No hydro on uSG Seen on HD Physical Exam Vital Signs: Vital Signs: Last Vital Signs Temp 100.0 F 12/27/22 15:00 Pulse 74 12/27/22 15:00 Resp 18 12/27/22 15:00 BP 112/49 L 12/27/22 15:00 Pulse Ox 95 12/27/22 15:00 O2 Del Method 12/27/22 15:00 O2 Flow Rate 35 12/26/22 06:00 FiO2 35 12/27/22 15:00 BMI result Body Mass Index 26.9 Remains flaccid and unresponsive to deep pain Cardiovascular exam is unchanged with good bilateral carotid upstrokes no neck vein distension CVP between 0 in 5 with fair consistency Lungs without adventitious sounds and his chest x-ray no distinct infiltrate Abdomen is soft nontender no organomegaly Scan without any pressure sores no cellulitis etc. Objective Data Labs 12/27/22 04:50 12/27/22 04:50 Labs: Laboratory Results - last 24 hr 12/26/22 12/26/22 12/26/22 04:38 18:05 23:40 WBC RBC Hgb Hct MCV MCH MCHC RDW Plt Count MPV Immature Gran % (Auto) Neut % (Auto) Lymph % (Auto) [place] % (Auto) Eos % (Auto) Baso % (Auto) Lymph # (Auto) [place] # (Auto) Eos # (Auto) Baso # (Auto) Abs Immat Gran (auto) Absolute Neuts (auto) Absolute Nucleated RBC Nucleated RBC % (auto) Smear Tech's Comments VBG pH VBG pCO2 VBG pO2 VBG HCO3 VBG O2 Saturation VBG Base Excess Sodium Potassium Chloride Carbon Dioxide Anion Gap BUN 183 H Creatinine Estim Creat Clear Calc Estimated GFR POC Glucose 123 H 127 H Random Glucose Calcium Phosphorus Magnesium Total Bilirubin AST ALT Alkaline Phosphatase Ammonia Total Creatine Kinase 1443 H Total Protein Albumin Hep Bs Antigen Hep Bs Antibody Hep B Core Total Ab 12/27/22 12/27/22 12/27/22 04:50 04:50 04:50 WBC 10.9 H RBC 3.54 L Hgb 12.0 L Hct 34.6 L MCV 97.7 MCH 33.9 H MCHC 34.7 RDW 13.8 Plt Count 68 L D MPV 12.3 Immature Gran % (Auto) 2.2 H Neut % (Auto) 66.9 Lymph % (Auto) 12.9 L [place] % (Auto) 14.7 H Eos % (Auto) 2.1 Baso % (Auto) 1.2 Lymph # (Auto) 1.4 [place] # (Auto) 1.6 H Eos # (Auto) 0.2 Baso # (Auto) 0.1 Abs Immat Gran (auto) 0.24 H Absolute Neuts (auto) 7.3 Absolute Nucleated RBC 0.000 Nucleated RBC % (auto) 0.0 Smear Tech's Comments VERIFIED VBG pH VBG pCO2 VBG pO2 VBG HCO3 VBG O2 Saturation VBG Base Excess Sodium 141 Potassium 4.7 Chloride 95 L Carbon Dioxide 23 Anion Gap 28 H BUN 162 H Creatinine 17.52 H* Estim Creat Clear Calc 5.5 Estimated GFR 3 POC Glucose Random Glucose 121 H Calcium 7.1 L D Phosphorus 7.3 H Magnesium 2.7 H Total Bilirubin 9.7 H AST 143 H ALT 342 H Alkaline Phosphatase 101 Ammonia 52 Total Creatine Kinase Total Protein 5.6 L Albumin 2.7 L Hep Bs Antigen Hep Bs Antibody Hep B Core Total Ab 12/27/22 12/27/22 12/27/22 04:52 08:45 11:32 WBC RBC Hgb Hct MCV MCH MCHC RDW Plt Count MPV Immature Gran % (Auto) Neut % (Auto) Lymph % (Auto) [place] % (Auto) Eos % (Auto) Baso % (Auto) Lymph # (Auto) [place] # (Auto) Eos # (Auto) Baso # (Auto) Abs Immat Gran (auto) Absolute Neuts (auto) Absolute Nucleated RBC Nucleated RBC % (auto) Smear Tech's Comments VBG pH 7.44 H VBG pCO2 30 VBG pO2 63 VBG HCO3 21 L VBG O2 Saturation 89.0 VBG Base Excess -2.0 Sodium Potassium Chloride Carbon Dioxide Anion Gap BUN Creatinine Estim Creat Clear Calc Estimated GFR POC Glucose 109 Random Glucose Calcium Phosphorus Magnesium Total Bilirubin AST ALT Alkaline Phosphatase Ammonia Total Creatine Kinase Total Protein Albumin Hep Bs Antigen Negative Hep Bs Antibody NONREACTIVE Hep B Core Total Ab Nonreactive Microbiology Microbiology Results: Microbiology 12/25/22 09:58 Blood - Venous Blood Culture - Preliminary No growth after 48 hours. 12/25/22 09:54 Blood - Venous Blood Culture - Preliminary No growth after 48 hours. 12/26/22 08:44 Sputum - Suctioned Gram Stain - Final 12/26/22 08:44 Sputum - Suctioned Sputum Culture - Preliminary Gram negative rohith 12/21/22 Unknown Urine Catheterized - Giron Catheter Urine Culture - Final No growth. Procedures Date of Service Date of Service: 12/27/22 Assessment & Plan Assessment and plan (1) Acute renal failure: Status: Acute Assessment and Plan: VITA Anuria ATN Cardioresp failure Continue HD Vol removal as tolerated HD again in AM Cardiopulmonary support D/w ICU team (2) NSTEMI (non-ST elevated myocardial infarction): Status: Acute (3) Acute respiratory failure: Status: Acute (4) Cardiac arrest: Status: Acute Time Spent With Patient Time: Total time managing care of this patient today ____ minutes. Progress Note: Quality Stroke Does the patient have a stroke diagnosis?: No
[2022-12-27] MEDS: levETIRAcetam in NaCl (iso-os) 500 MG/100 ML PIGGYBACK 400 MG IV (16:48)
[2022-12-27 18:13] LABS: Glucose, Whole Blood 123 mg/dL (60-115)
[2022-12-28] VITALS (31 sets, daily range): BP systolic 106–189; BP diastolic 52–92; PULSE 75–116; RESP 16–36; TEMP 34.8–38.2; O2SAT 91–97; BMI 26.8
[2022-12-28 00:10] LABS: Glucose, Whole Blood 142 mg/dL (60-115)
[2022-12-28] MEDS: levETIRAcetam in NaCl (iso-os) 1,000 MG/100 ML PIGGYBACK 400 MG IV ×2 (03:01→14:07)
[2022-12-28 04:54] LABS: VBG HCO3 19 mmol/L (22-26); VBG pCO2 28 mmHg; VBG pH 7.42 (7.32-7.43); VBG pO2 54 mmHg
[2022-12-28 05:32] LABS: Basophils Absolute Auto 0.1 X10*3/uL (0.0-0.2); Basophils Percent Auto 0.6 % (0-2); Eosinophils Absolute Auto 0.5 X10*3/uL (0.0-0.4); Eosinophils Percent Auto 3.1 % (0-4); Hematocrit 33.9 % (42.0-52.0); Hemoglobin 11.9 g/dl (14.0-18.0); Imm Gran Abs Auto 0.35 X10*3/uL (0.00-0.03); Imm Gran Pct Auto 2.2 % (0.0-0.4); Lymphocytes Absolute Auto 1.6 X10*3/uL (1.2-4.9); Lymphocytes Percent Auto 10.5 % (20-40); MANUAL DIFF FLAG SCAN; Mean Corpuscular HGB Conc 35.1 g/dl (31.0-36.0); Mean Corpuscular Hemoglobin 33.7 pg (27.0-33.0); Mean Platelet Volume 13.3 fL (9.4-12.4); Monocytes Absolute Auto 1.7 X10*3/uL (0.1-1.2); Monocytes Percent Auto 10.6 % (2-11); Neutrophils Absolute Auto 11.5 x10*3/uL (2.0-8.3); Platelet Count 65 X10*3/uL (160-400); Red Blood Count 3.53 X10*6/uL (4.60-5.80); Red Cell Distribution Width 13.9 % (11.0-16.0); SCAN SMEAR FLAG 1; White Blood Count 15.7 X10*3/uL (4.8-10.8)
[2022-12-28 05:37] LABS: Ammonia 52 umol/L (13-55)
[2022-12-28 05:50] LABS: Alanine Aminotransferase 231 U/L (0-40); Albumin Level 2.9 g/dL (3.5-5.0); Alkaline Phosphatase 134 U/L (39-117); Anion Gap 23 (12-20); Aspartate Amino Transferase 120 U/L (5-37); Bilirubin Total 9.6 mg/dL (0.0-1.0); Blood Urea Nitrogen 115 mg/dL (9-16); Calcium 8.3 mg/dL (8.4-10.2); Carbon Dioxide 20 mmol/L (22-29); Chloride 97 mmol/L (96-108); Creatinine Clr Calc Pharmacy 7.5; Estimated Glomerular Filt Rate 4; Glucose Random 141 mg/dL (60-115); Magnesium 2.4 mg/dL (1.6-2.6); Potassium 4.3 mmol/L (3.3-5.1); Sodium 136 mmol/L (135-145); Total Protein 5.7 g/dL (6.5-8.0)
[2022-12-28 06:03] LABS: Venous Blood Gas Refer to POC result
[2022-12-28 06:08] LABS: SLIDE REVIEW VERIFIED
--- NOTE | 2022-12-28 09:22 | PM.CCPN ---
Subjective Subjective Date of Service: 12/28/22 Interval History: He is 52-year-old male longstanding chronic alcoholic was found apneic and in PE a requiring out of hospital resuscitation and then intubation in the emergency room and he has been an uric for 8 days now ever since that his initial need for pressors has since gone away with bedside echo determination of LV function being normal at this point he still has not awakened he has been 5 full days off of and any sedation and remains completely unresponsive still has some brainstem reflexes certainly spontaneous respiration and today he developed respiratory pattern with significant tachypnea and then over time it be gets the need for prolonged expiratory time with the extreme diaphragmatic effort for expiration clear-cut auto PEEP significant air trapping and as time goes by he then has sternal retraction with his inspiratory effort and initially we tried after measuring his compliance which is for all intents and purposes normal and and his CVP remains at 5 so despite dialysis and and the no removal of volume and after he days he still does not have signs of elevated intrathoracic volume but he has some form of and airway resistance which clearly is at very least dynamic we gave him high-dose albuterol treatment will probably have to repeated at least again but the ultimately we had to give him to as of IV Versed and 50 mg of rocuronium and and then he was able to with a prolonged relative expiratory time at a 4-1 level he was able to completely empty himself heart rate came down from 120 to about 90 pressures came down acutely from 180-124 and his oxygen saturations up 95% Critical Care Time (minutes): 45 Physical Exam Vital Signs: Vital Signs: Last Vital Signs Temp 99.3 F 12/28/22 08:00 Pulse 83 12/28/22 09:00 Resp 22 H 12/28/22 09:00 BP 113/65 12/28/22 09:00 Pulse Ox 94 12/28/22 09:00 O2 Del Method 12/28/22 09:00 O2 Flow Rate 35 12/26/22 06:00 FiO2 35 12/28/22 09:00 BMI result Body Mass Index 26.8 Still not responding not spontaneously opening his eyes no response to noxious stimuli Abdomen soft tolerating feedings no again a megaly Lungs with clear-cut bilateral expiratory wheezing Bedside echo with normal LV function Objective Data Labs 12/28/22 04:44 12/28/22 04:44 Labs: Laboratory Results - last 24 hr 12/27/22 12/27/22 12/27/22 08:45 11:32 18:03 WBC RBC Hgb Hct MCV MCH MCHC RDW Plt Count MPV Immature Gran % (Auto) Neut % (Auto) Lymph % (Auto) [place] % (Auto) Eos % (Auto) Baso % (Auto) Lymph # (Auto) [place] # (Auto) Eos # (Auto) Baso # (Auto) Abs Immat Gran (auto) Absolute Neuts (auto) Absolute Nucleated RBC Nucleated RBC % (auto) Smear Tech's Comments VBG pH VBG pCO2 VBG pO2 VBG HCO3 VBG O2 Saturation VBG Base Excess Sodium Potassium Chloride Carbon Dioxide Anion Gap BUN Creatinine Estim Creat Clear Calc Estimated GFR POC Glucose 109 123 H Random Glucose Calcium Phosphorus Magnesium Total Bilirubin AST ALT Alkaline Phosphatase Ammonia Total Protein Albumin Hep Bs Antigen Negative Hep Bs Antibody NONREACTIVE Hep B Core Total Ab Nonreactive 12/28/22 12/28/22 12/28/22 00:02 04:44 04:44 WBC 15.7 H RBC 3.53 L Hgb 11.9 L Hct 33.9 L MCV 96.0 MCH 33.7 H MCHC 35.1 RDW 13.9 Plt Count 65 L MPV 13.3 H Immature Gran % (Auto) 2.2 H Neut % (Auto) 73.0 Lymph % (Auto) 10.5 L [place] % (Auto) 10.6 Eos % (Auto) 3.1 Baso % (Auto) 0.6 Lymph # (Auto) 1.6 [place] # (Auto) 1.7 H Eos # (Auto) 0.5 H Baso # (Auto) 0.1 Abs Immat Gran (auto) 0.35 H Absolute Neuts (auto) 11.5 H Absolute Nucleated RBC 0.000 Nucleated RBC % (auto) 0.0 Smear Tech's Comments VERIFIED VBG pH VBG pCO2 VBG pO2 VBG HCO3 VBG O2 Saturation VBG Base Excess Sodium 136 Potassium 4.3 Chloride 97 Carbon Dioxide 20 L Anion Gap 23 H BUN 115 H Creatinine 12.88 H* Estim Creat Clear Calc 7.5 Estimated GFR 4 POC Glucose 142 H Random Glucose 141 H Calcium 8.3 L D Phosphorus 7.0 H Magnesium 2.4 Total Bilirubin 9.6 H AST 120 H ALT 231 H Alkaline Phosphatase 134 H Ammonia Total Protein 5.7 L Albumin 2.9 L Hep Bs Antigen Hep Bs Antibody Hep B Core Total Ab 12/28/22 12/28/22 04:44 04:47 WBC RBC Hgb Hct MCV MCH MCHC RDW Plt Count MPV Immature Gran % (Auto) Neut % (Auto) Lymph % (Auto) [place] % (Auto) Eos % (Auto) Baso % (Auto) Lymph # (Auto) [place] # (Auto) Eos # (Auto) Baso # (Auto) Abs Immat Gran (auto) Absolute Neuts (auto) Absolute Nucleated RBC Nucleated RBC % (auto) Smear Tech's Comments VBG pH 7.42 VBG pCO2 28 VBG pO2 54 VBG HCO3 19 L VBG O2 Saturation 81.0 VBG Base Excess -4.0 Sodium Potassium Chloride Carbon Dioxide Anion Gap BUN Creatinine Estim Creat Clear Calc Estimated GFR POC Glucose Random Glucose Calcium Phosphorus Magnesium Total Bilirubin AST ALT Alkaline Phosphatase Ammonia 52 Total Protein Albumin Hep Bs Antigen Hep Bs Antibody Hep B Core Total Ab Microbiology Microbiology Results: Microbiology 12/26/22 08:44 Sputum - Suctioned Gram Stain - Final 12/26/22 08:44 Sputum - Suctioned Sputum Culture - Final Enterobacter aerogenes 12/25/22 09:58 Blood - Venous Blood Culture - Preliminary No growth after 48 hours. 12/25/22 09:54 Blood - Venous Blood Culture - Preliminary No growth after 48 hours. 12/21/22 Unknown Urine Catheterized - Giron Catheter Urine Culture - Final No growth. Progress Note: A&P Assessment and plan (1) Increased ammonia level: Status: Acute (2) NSTEMI (non-ST elevated myocardial infarction): Status: Acute (3) Acute renal failure: Status: Acute (4) Ischemic hepatitis: Status: Acute (5) Acute respiratory failure: Status: Acute (6) Polysubstance abuse: Status: Acute (7) Cardiac arrest: Status: Acute (8) Substance use disorder: Status: Acute (9) Alcohol intoxication: Status: Acute (10) Encephalopathy: Status: Acute (11) Hypoglycemia: Status: Acute Plan To impression here is that we have an altered respiratory pattern and the chest x-rays relatively clear and his CVP is not reflecting significant volume overload and is responsive was not all that good to the 5 mg albuterol which were going to or repeat empirically so I am a bit perplexed as to where this airway resistance is come from unless it is part of this pneumonia 4 he has some form of primary central hyper ventilatory pattern and the dynamics of the elevated respiratory rate and forced expiratory flow is creating dynamic airway. Resistance but in the interim we may have to treat him with p.r.n. use of Versed and rocuronium Quality Stroke Does the patient have a stroke diagnosis?: No VTE Prior VTE?: No VTE Risk Level:: Medical - moderate - high VTE Device Contraindication: N/A - Device Ordered VTE Drug Contraindication: N/A - Med Ordered
[2022-12-28] MEDS: Chlorhexidine Gluc Oral Rinse 15 ML MOUTHWASH BUCCAL ×3 (09:37→21:15)
[2022-12-28] MEDS: Lactulose 20 GM/30 ML SOLUTION PO ×2 (09:37→21:15)
[2022-12-28] MEDS: Albuterol Sulfate (0.083%) 2.5 MG/3 ML VIAL.NEB 5 MG INHALE ×2 (09:45→13:14)
[2022-12-28] MEDS: Midazolam HCl/PF 2 MG/2 ML VIAL IVPUSH ×3 (11:09→14:47)
[2022-12-28] MEDS: Rocuronium Bromide 50 MG/5 ML VIAL IVPUSH ×2 (11:12→14:13)
[2022-12-28 12:36] LABS: Glucose, Whole Blood 151 mg/dL (60-115)
[2022-12-28] MEDS: Rocuronium Bromide 50 MG/5 ML VIAL 25 MG IVPUSH (14:53)
[2022-12-28 18:09] LABS: Glucose, Whole Blood 122 mg/dL (60-115)
--- NOTE | 2022-12-28 21:16 | P.PNNP_ITS ---
Subjective Subjective Date of Service: 12/28/22 Interval history: Pt is still vent dependant Seen on HD earlier Physical Exam Vital Signs: Vital Signs: Last Vital Signs Temp 100.6 F H 12/28/22 21:00 Pulse 93 12/28/22 21:00 Resp 21 H 12/28/22 21:00 BP 139/72 12/28/22 21:00 Pulse Ox 96 12/28/22 21:00 O2 Del Method 12/28/22 21:00 O2 Flow Rate 35 12/26/22 06:00 FiO2 35 12/28/22 21:00 BMI result Body Mass Index 26.8 Still not responding not spontaneously opening his eyes no response to noxious stimuli Abdomen soft tolerating feedings no again a megaly Lungs with clear-cut bilateral expiratory wheezing Bedside echo with normal LV function Objective Data Labs 12/28/22 04:44 12/28/22 04:44 Labs: Laboratory Results - last 24 hr 12/28/22 12/28/22 12/28/22 00:02 04:44 04:44 WBC 15.7 H RBC 3.53 L Hgb 11.9 L Hct 33.9 L MCV 96.0 MCH 33.7 H MCHC 35.1 RDW 13.9 Plt Count 65 L MPV 13.3 H Immature Gran % (Auto) 2.2 H Neut % (Auto) 73.0 Lymph % (Auto) 10.5 L [place] % (Auto) 10.6 Eos % (Auto) 3.1 Baso % (Auto) 0.6 Lymph # (Auto) 1.6 [place] # (Auto) 1.7 H Eos # (Auto) 0.5 H Baso # (Auto) 0.1 Abs Immat Gran (auto) 0.35 H Absolute Neuts (auto) 11.5 H Absolute Nucleated RBC 0.000 Nucleated RBC % (auto) 0.0 Smear Tech's Comments VERIFIED VBG pH VBG pCO2 VBG pO2 VBG HCO3 VBG O2 Saturation VBG Base Excess Sodium 136 Potassium 4.3 Chloride 97 Carbon Dioxide 20 L Anion Gap 23 H BUN 115 H Creatinine 12.88 H* Estim Creat Clear Calc 7.5 Estimated GFR 4 POC Glucose 142 H Random Glucose 141 H Calcium 8.3 L D Phosphorus 7.0 H Magnesium 2.4 Total Bilirubin 9.6 H AST 120 H ALT 231 H Alkaline Phosphatase 134 H Ammonia Total Protein 5.7 L Albumin 2.9 L 12/28/22 12/28/22 12/28/22 04:44 04:47 12:20 WBC RBC Hgb Hct MCV MCH MCHC RDW Plt Count MPV Immature Gran % (Auto) Neut % (Auto) Lymph % (Auto) [place] % (Auto) Eos % (Auto) Baso % (Auto) Lymph # (Auto) [place] # (Auto) Eos # (Auto) Baso # (Auto) Abs Immat Gran (auto) Absolute Neuts (auto) Absolute Nucleated RBC Nucleated RBC % (auto) Smear Tech's Comments VBG pH 7.42 VBG pCO2 28 VBG pO2 54 VBG HCO3 19 L VBG O2 Saturation 81.0 VBG Base Excess -4.0 Sodium Potassium Chloride Carbon Dioxide Anion Gap BUN Creatinine Estim Creat Clear Calc Estimated GFR POC Glucose 151 H Random Glucose Calcium Phosphorus Magnesium Total Bilirubin AST ALT Alkaline Phosphatase Ammonia 52 Total Protein Albumin 12/28/22 18:04 WBC RBC Hgb Hct MCV MCH MCHC RDW Plt Count MPV Immature Gran % (Auto) Neut % (Auto) Lymph % (Auto) [place] % (Auto) Eos % (Auto) Baso % (Auto) Lymph # (Auto) [place] # (Auto) Eos # (Auto) Baso # (Auto) Abs Immat Gran (auto) Absolute Neuts (auto) Absolute Nucleated RBC Nucleated RBC % (auto) Smear Tech's Comments VBG pH VBG pCO2 VBG pO2 VBG HCO3 VBG O2 Saturation VBG Base Excess Sodium Potassium Chloride Carbon Dioxide Anion Gap BUN Creatinine Estim Creat Clear Calc Estimated GFR POC Glucose 122 H Random Glucose Calcium Phosphorus Magnesium Total Bilirubin AST ALT Alkaline Phosphatase Ammonia Total Protein Albumin Microbiology Microbiology Results: Microbiology 12/26/22 08:44 Sputum - Suctioned Gram Stain - Final 12/26/22 08:44 Sputum - Suctioned Sputum Culture - Final Enterobacter aerogenes 12/25/22 09:58 Blood - Venous Blood Culture - Preliminary No growth after 48 hours. 12/25/22 09:54 Blood - Venous Blood Culture - Preliminary No growth after 48 hours. 12/21/22 Unknown Urine Catheterized - Giron Catheter Urine Culture - Final No growth. Procedures Date of Service Date of Service: 12/28/22 Assessment & Plan Assessment and plan (1) Acute renal failure: Status: Acute Assessment and Plan: VITA Anuria ATN Cardioresp failure Continue HD today Next Hd on Friday Vol removal as tolerated - Will remove extra on friday Cardiopulmonary support D/w ICU team (2) NSTEMI (non-ST elevated myocardial infarction): Status: Acute (3) Acute respiratory failure: Status: Acute (4) Cardiac arrest: Status: Acute Time Spent With Patient Time: Total time managing care of this patient today ____ minutes. Progress Note: Quality Stroke Does the patient have a stroke diagnosis?: No
--- NOTE | 2022-12-28 22:40 | PC.NURSE ---
PATIENT HAD SUSTAINED INCREASED WORK OF BREATHING. MULTIPLE VENT SETTINGS ADJUSTED BY RT AND MD, UNSUCCESSFUL IN OBTAINING VENT SYNCHRONY. RESPIRATIONS RATE INCREASING FROM MID 20'S TO LOW 40'S. ETCO2 DECREASING FOR 43 TO 26. PATIENT CONTINUED TO FIGHT VENT, DOUBLE STACKING BREATHS, COUGHING, AND ABDOMINAL BREATHING. VERSED 2MG IVP GIVEN PER MD AT 1107, SEE EMAR. ROCURONIUM 50MG IVP GIVEN PER MD AT 1109, SEE EMAR. TF HELD AT 1110. VENT SYNCHRONY OBTAINED AT ROUGHLY 1400 PATIENT BEGAN TO FIGHT VENT, DOUBLE STACKING BREATHS, COUGHING, AND ABDOMINAL BREATHING. VERSED 2MG IVP GIVEN PER MD AT 1404, SEE EMAR. ROCURONIUM 50MG IVP GIVEN PER MD AT 1405, SEE EMAR. VENT SYNCHRONY OBTAINED. AT ROUGHLY 1445 PATIENT BEGAN TO FIGHT VENT, DOUBLE STACKING BREATHS, COUGHING, AND ABDOMINAL BREATHING. VERSED 2MG IVP GIVEN PER MD AT 1447, SEE EMAR. ROCURONIUM 25MG IVP GIVEN PER MD AT 1453, SEE EMAR. VENT SYNCHRONY OBTAINED AND MAINTAINED FOR REMAINED OF SHIFT. TF RESUMED AT 1900 PATIENT BATHED, ROUTINE ORAL CARE PROVIDED, REPOSITIONED 2QHR, FAMILY INFORMED ON CURRENT HEALTH STATUS.
[2022-12-29] VITALS (30 sets, daily range): BP systolic 108–155; BP diastolic 56–93; PULSE 82–127; RESP 15–26; TEMP -12.1–38.2; O2SAT 95–99; BMI 26.2
[2022-12-29 00:08] LABS: Glucose, Whole Blood 129 mg/dL (60-115)
[2022-12-29] MEDS: levETIRAcetam in NaCl (iso-os) 1,000 MG/100 ML PIGGYBACK 400 MG IV ×2 (03:28→14:04)
[2022-12-29 04:55] LABS: VBG Base Excess -1.3 mmol/L; VBG HCO3 21 mmol/L (22-26); VBG pCO2 29 mmHg; VBG pH 7.46 (7.32-7.43); VBG pO2 53 mmHg
[2022-12-29 05:15] LABS: Basophils Absolute Auto 0.1 X10*3/uL (0.0-0.2); Basophils Percent Auto 0.5 % (0-2); Eosinophils Absolute Auto 0.3 X10*3/uL (0.0-0.4); Eosinophils Percent Auto 1.2 % (0-4); Hematocrit 35.2 % (42.0-52.0); Hemoglobin 12.2 g/dl (14.0-18.0); Imm Gran Abs Auto 0.34 X10*3/uL (0.00-0.03); Imm Gran Pct Auto 1.6 % (0.0-0.4); Lymphocytes Absolute Auto 1.7 X10*3/uL (1.2-4.9); Lymphocytes Percent Auto 8.2 % (20-40); MANUAL DIFF FLAG SCAN; Mean Corpuscular HGB Conc 34.7 g/dl (31.0-36.0); Mean Corpuscular Hemoglobin 33.2 pg (27.0-33.0); Mean Corpuscular Volume 95.7 fL (80.0-98.0); Mean Platelet Volume 12.9 fL (9.4-12.4); Monocytes Absolute Auto 1.6 X10*3/uL (0.1-1.2); Monocytes Percent Auto 7.7 % (2-11); Neutrophils Absolute Auto 16.7 x10*3/uL (2.0-8.3); Neutrophils Percent Auto 80.8 % (45-73); Platelet Count 88 X10*3/uL (160-400); Red Blood Count 3.68 X10*6/uL (4.60-5.80); Red Cell Distribution Width 14.2 % (11.0-16.0); SCAN SMEAR FLAG 1; White Blood Count 20.7 X10*3/uL (4.8-10.8)
[2022-12-29 05:30] LABS: Ammonia 52 umol/L (13-55)
[2022-12-29 05:33] LABS: SLIDE REVIEW VERIFIED
[2022-12-29 05:38] LABS: Alanine Aminotransferase 185 U/L (0-40); Alkaline Phosphatase 185 U/L (39-117); Anion Gap 21 (12-20); Aspartate Amino Transferase 132 U/L (5-37); Blood Urea Nitrogen 88 mg/dL (9-16); Calcium 8.2 mg/dL (8.4-10.2); Carbon Dioxide 24 mmol/L (22-29); Chloride 98 mmol/L (96-108); Creatinine Clr Calc Pharmacy 8.8; Estimated Glomerular Filt Rate 5; Glucose Random 143 mg/dL (60-115); Magnesium 2.5 mg/dL (1.6-2.6); Phosphorus 8.6 mg/dL (2.7-4.5); Potassium 4.3 mmol/L (3.3-5.1); Sodium 139 mmol/L (135-145); Total Protein 6.3 g/dL (6.5-8.0)
[2022-12-29 06:26] LABS: Venous Blood Gas Refer to POC result
[2022-12-29] MEDS: Lactulose 20 GM/30 ML SOLUTION PO ×2 (07:58→20:27)
[2022-12-29] MEDS: levoFLOXacin/D5W 500 MG/100 ML PIGGYBACK 100 MG IV (07:58)
[2022-12-29] MEDS: Chlorhexidine Gluc Oral Rinse 15 ML MOUTHWASH BUCCAL ×3 (07:58→20:27)
--- NOTE | 2022-12-29 09:20 | P.PNCC_ITS ---
Subjective Subjective Date of Service: 12/29/22 Interval History: 52-year-old male polysubstance abuse longstanding severe alcoholic who was found unresponsive apneic and found in PE a requiring out of hospital resuscitation and we do not have a handle on the time and then intubated in the emergency room came in with multi organ failure requiring pressor support initially has remained an uric now for 9 days patient became progressively azotemic and when uremic I placed a dialysis catheter we initiated dialysis is been intubated the whole time and has remained unresponsive even to deep pain but now after 9 days it seems that he has got some cough and gag reflex with suctioning which he did not have earlier again even to noxious stimulus he is not arousable pupils remain midsized and unresponsive He also had elevated ammonia based on hepatic failure and he had marked elevation in his transaminases as well as his alkaline phosphatase and total bilirubin probably a and ischemic hepatitis and that has been repairing but renal function has remained nil and he states the him had 3 dialysis treatments each 2-1/2 hours with some degree of metabolic improvement and the yet he has had no fluid removed in these 9 days interestingly enough and still maintains a CVP below 5 and when we questioned what looked like a seizure-like activity we empirically start him on IV Keppra and those initial manifestations seem to be controlled Wean his ventilatory pattern had changed yesterday I was concerned with intracranial hypertension possible possible early herniation but repeat CT scan was intact When his FiO2 requirement went up and his minute ventilatory requirement went up a little he was bringing up but purulent-looking secretions and I am sure he had aspirated at the time he was initially found unconscious and is growing Enterobacter sensitive to Levaquin so the meropenem is been stopped Critical Care Time (minutes): 35 Physical Exam Vital Signs: Vital Signs: Last Vital Signs Temp 100.4 F 12/29/22 09:00 Pulse 95 12/29/22 09:05 Resp 17 12/29/22 09:00 BP 155/79 H 12/29/22 09:05 Pulse Ox 97 12/29/22 09:00 O2 Del Method 12/29/22 09:00 O2 Flow Rate 35 12/26/22 06:00 FiO2 35 12/29/22 09:00 BMI result Body Mass Index 26.2 He clearly grimaces and coughs with the suctioning Abdomen soft no organomegaly Bedside echo with normal LV and RV function Still daily chest x-rays no distinct infiltrate or CHF for barotrauma Objective Data Labs 12/29/22 04:48 12/29/22 04:48 Labs: Laboratory Results - last 24 hr 12/28/22 12/28/22 12/29/22 12:20 18:04 00:05 WBC RBC Hgb Hct MCV MCH MCHC RDW Plt Count MPV Immature Gran % (Auto) Neut % (Auto) Lymph % (Auto) [place] % (Auto) Eos % (Auto) Baso % (Auto) Lymph # (Auto) [place] # (Auto) Eos # (Auto) Baso # (Auto) Abs Immat Gran (auto) Absolute Neuts (auto) Absolute Nucleated RBC Nucleated RBC % (auto) Smear Tech's Comments VBG pH VBG pCO2 VBG pO2 VBG HCO3 VBG O2 Saturation VBG Base Excess Sodium Potassium Chloride Carbon Dioxide Anion Gap BUN Creatinine Estim Creat Clear Calc Estimated GFR POC Glucose 151 H 122 H 129 H Random Glucose Calcium Phosphorus Magnesium Total Bilirubin AST ALT Alkaline Phosphatase Ammonia Total Protein Albumin 12/29/22 12/29/22 12/29/22 04:46 04:48 04:48 WBC 20.7 H RBC 3.68 L Hgb 12.2 L Hct 35.2 L MCV 95.7 MCH 33.2 H MCHC 34.7 RDW 14.2 Plt Count 88 L D MPV 12.9 H Immature Gran % (Auto) 1.6 H Neut % (Auto) 80.8 H Lymph % (Auto) 8.2 L [place] % (Auto) 7.7 Eos % (Auto) 1.2 Baso % (Auto) 0.5 Lymph # (Auto) 1.7 [place] # (Auto) 1.6 H Eos # (Auto) 0.3 Baso # (Auto) 0.1 Abs Immat Gran (auto) 0.34 H Absolute Neuts (auto) 16.7 H Absolute Nucleated RBC 0.000 Nucleated RBC % (auto) 0.0 Smear Tech's Comments VERIFIED VBG pH 7.46 H VBG pCO2 29 VBG pO2 53 VBG HCO3 21 L VBG O2 Saturation 79.0 VBG Base Excess -1.3 Sodium 139 Potassium 4.3 Chloride 98 Carbon Dioxide 24 Anion Gap 21 H BUN 88 H Creatinine 10.90 H* Estim Creat Clear Calc 8.8 Estimated GFR 5 POC Glucose Random Glucose 143 H Calcium 8.2 L Phosphorus 8.6 H Magnesium 2.5 Total Bilirubin 10.0 H AST 132 H ALT 185 H Alkaline Phosphatase 185 H Ammonia Total Protein 6.3 L Albumin 3.0 L 12/29/22 04:48 WBC RBC Hgb Hct MCV MCH MCHC RDW Plt Count MPV Immature Gran % (Auto) Neut % (Auto) Lymph % (Auto) [place] % (Auto) Eos % (Auto) Baso % (Auto) Lymph # (Auto) [place] # (Auto) Eos # (Auto) Baso # (Auto) Abs Immat Gran (auto) Absolute Neuts (auto) Absolute Nucleated RBC Nucleated RBC % (auto) Smear Tech's Comments VBG pH VBG pCO2 VBG pO2 VBG HCO3 VBG O2 Saturation VBG Base Excess Sodium Potassium Chloride Carbon Dioxide Anion Gap BUN Creatinine Estim Creat Clear Calc Estimated GFR POC Glucose Random Glucose Calcium Phosphorus Magnesium Total Bilirubin AST ALT Alkaline Phosphatase Ammonia 52 Total Protein Albumin Microbiology Microbiology Results: Microbiology 12/26/22 08:44 Sputum - Suctioned Gram Stain - Final 12/26/22 08:44 Sputum - Suctioned Sputum Culture - Final Enterobacter aerogenes 12/25/22 09:58 Blood - Venous Blood Culture - Preliminary No growth after 48 hours. 12/25/22 09:54 Blood - Venous Blood Culture - Preliminary No growth after 48 hours. 12/21/22 Unknown Urine Catheterized - Giron Catheter Urine Culture - Final No growth. Progress Note: A&P Assessment and plan (1) Increased ammonia level: Status: Acute (2) NSTEMI (non-ST elevated myocardial infarction): Status: Acute (3) Acute renal failure: Status: Acute (4) Ischemic hepatitis: Status: Acute (5) Acute respiratory failure: Status: Acute (6) Polysubstance abuse: Status: Acute (7) Cardiac arrest: Status: Acute (8) Substance use disorder: Status: Acute (9) Alcohol intoxication: Status: Acute (10) Encephalopathy: Status: Acute (11) Hypoglycemia: Status: Acute Plan So the planned is to continue with Levaquin as the Enterobacter is sensitive and continue his OG feedings and at least 1 other dialysis treatment and if at that time he still does not demonstrate any level of awakening let alone cognitive function as already explained to the brother who is the proxy in this situation the prognosis here would be grim Quality Stroke Does the patient have a stroke diagnosis?: No VTE Prior VTE?: No VTE Risk Level:: Medical - moderate - high VTE Device Contraindication: N/A - Device Ordered VTE Drug Contraindication: N/A - Med Ordered
--- NOTE | 2022-12-29 11:07 | MHC.CM.PN ---
Patient remains intubated/vented in ICU. Patient's prognosis is poor. Plan is to see if patient medical condition improves this week. Continue to monitor for d/c needs.
[2022-12-29 11:16] LABS: Glucose, Whole Blood 140 mg/dL (60-115)
--- NOTE | 2022-12-29 13:12 | P.PNNP_ITS ---
Subjective Subjective Date of Service: 12/29/22 Interval history: 52-year-old male polysubstance abuse longstanding severe alcoholic who was found unresponsive apneic and found in PE a requiring out of hospital resuscitation Vent dependant and is on HD Physical Exam Vital Signs: Vital Signs: Last Vital Signs Temp 99.5 F 12/29/22 12:00 Pulse 91 12/29/22 13:00 Resp 26 H 12/29/22 13:00 BP 144/69 H 12/29/22 13:00 Pulse Ox 99 12/29/22 13:00 O2 Del Method 12/29/22 13:00 O2 Flow Rate 35 12/26/22 06:00 FiO2 35 12/29/22 13:00 BMI result Body Mass Index 26.2 He clearly grimaces and coughs with the suctioning Abdomen soft no organomegaly Bedside echo with normal LV and RV function Still daily chest x-rays no distinct infiltrate or CHF for barotrauma Objective Data Labs 12/29/22 04:48 12/29/22 04:48 Labs: Laboratory Results - last 24 hr 12/28/22 12/28/22 12/29/22 12:20 18:04 00:05 WBC RBC Hgb Hct MCV MCH MCHC RDW Plt Count MPV Immature Gran % (Auto) Neut % (Auto) Lymph % (Auto) [place] % (Auto) Eos % (Auto) Baso % (Auto) Lymph # (Auto) [place] # (Auto) Eos # (Auto) Baso # (Auto) Abs Immat Gran (auto) Absolute Neuts (auto) Absolute Nucleated RBC Nucleated RBC % (auto) Smear Tech's Comments VBG pH VBG pCO2 VBG pO2 VBG HCO3 VBG O2 Saturation VBG Base Excess Sodium Potassium Chloride Carbon Dioxide Anion Gap BUN Creatinine Estim Creat Clear Calc Estimated GFR POC Glucose 151 H 122 H 129 H Random Glucose Calcium Phosphorus Magnesium Total Bilirubin AST ALT Alkaline Phosphatase Ammonia Total Protein Albumin 12/29/22 12/29/22 12/29/22 04:46 04:48 04:48 WBC 20.7 H RBC 3.68 L Hgb 12.2 L Hct 35.2 L MCV 95.7 MCH 33.2 H MCHC 34.7 RDW 14.2 Plt Count 88 L D MPV 12.9 H Immature Gran % (Auto) 1.6 H Neut % (Auto) 80.8 H Lymph % (Auto) 8.2 L [place] % (Auto) 7.7 Eos % (Auto) 1.2 Baso % (Auto) 0.5 Lymph # (Auto) 1.7 [place] # (Auto) 1.6 H Eos # (Auto) 0.3 Baso # (Auto) 0.1 Abs Immat Gran (auto) 0.34 H Absolute Neuts (auto) 16.7 H Absolute Nucleated RBC 0.000 Nucleated RBC % (auto) 0.0 Smear Tech's Comments VERIFIED VBG pH 7.46 H VBG pCO2 29 VBG pO2 53 VBG HCO3 21 L VBG O2 Saturation 79.0 VBG Base Excess -1.3 Sodium 139 Potassium 4.3 Chloride 98 Carbon Dioxide 24 Anion Gap 21 H BUN 88 H Creatinine 10.90 H* Estim Creat Clear Calc 8.8 Estimated GFR 5 POC Glucose Random Glucose 143 H Calcium 8.2 L Phosphorus 8.6 H Magnesium 2.5 Total Bilirubin 10.0 H AST 132 H ALT 185 H Alkaline Phosphatase 185 H Ammonia Total Protein 6.3 L Albumin 3.0 L 12/29/22 12/29/22 04:48 11:10 WBC RBC Hgb Hct MCV MCH MCHC RDW Plt Count MPV Immature Gran % (Auto) Neut % (Auto) Lymph % (Auto) [place] % (Auto) Eos % (Auto) Baso % (Auto) Lymph # (Auto) [place] # (Auto) Eos # (Auto) Baso # (Auto) Abs Immat Gran (auto) Absolute Neuts (auto) Absolute Nucleated RBC Nucleated RBC % (auto) Smear Tech's Comments VBG pH VBG pCO2 VBG pO2 VBG HCO3 VBG O2 Saturation VBG Base Excess Sodium Potassium Chloride Carbon Dioxide Anion Gap BUN Creatinine Estim Creat Clear Calc Estimated GFR POC Glucose 140 H Random Glucose Calcium Phosphorus Magnesium Total Bilirubin AST ALT Alkaline Phosphatase Ammonia 52 Total Protein Albumin Microbiology Microbiology Results: Microbiology 12/26/22 08:44 Sputum - Suctioned Gram Stain - Final 12/26/22 08:44 Sputum - Suctioned Sputum Culture - Final Enterobacter aerogenes 12/25/22 09:58 Blood - Venous Blood Culture - Preliminary No growth after 48 hours. 12/25/22 09:54 Blood - Venous Blood Culture - Preliminary No growth after 48 hours. 12/21/22 Unknown Urine Catheterized - Giron Catheter Urine Culture - Final No growth. Procedures Date of Service Date of Service: 12/29/22 Assessment & Plan Assessment and plan (1) Acute renal failure: Status: Acute Assessment and Plan: VITA Anuria ATN Cardioresp failure Pt Anuric Had Hd on Friday and Sat Next Hd on Friday Vol removal as tolerated - Will remove extra on Friday Cardiopulmonary support D/w ICU team (2) NSTEMI (non-ST elevated myocardial infarction): Status: Acute (3) Acute respiratory failure: Status: Acute (4) Cardiac arrest: Status: Acute Time Spent With Patient Time: Total time managing care of this patient today ____ minutes. Progress Note: Quality Stroke Does the patient have a stroke diagnosis?: No
[2022-12-29 17:15] LABS: Glucose, Whole Blood 134 mg/dL (60-115)
[2022-12-30] VITALS (37 sets, daily range): BP systolic 88–155; BP diastolic 45–84; PULSE 64–100; RESP 15–34; TEMP 35–38; O2SAT 65–100; BMI 26.4
[2022-12-30] MEDS: levETIRAcetam in NaCl (iso-os) 1,000 MG/100 ML PIGGYBACK 400 MG IV ×2 (02:58→13:50)
[2022-12-30 05:05] LABS: MANUAL DIFF FLAG NO
[2022-12-30 05:06] LABS: VBG Base Excess -3.1 mmol/L; VBG HCO3 19 mmol/L (22-26); VBG pCO2 28 mmHg; VBG pH 7.44 (7.32-7.43); VBG pO2 63 mmHg
[2022-12-30 05:07] LABS: Venous Blood Gas Refer to POC result
[2022-12-30 05:13] LABS: Basophils Absolute Auto 0.2 X10*3/uL (0.0-0.2); Basophils Percent Auto 0.9 % (0-2); Eosinophils Absolute Auto 0.5 X10*3/uL (0.0-0.4); Eosinophils Percent Auto 2.4 % (0-4); Hemoglobin 11.4 g/dl (14.0-18.0); Imm Gran Abs Auto 0.26 X10*3/uL (0.00-0.03); Imm Gran Pct Auto 1.2 % (0.0-0.4); Lymphocytes Absolute Auto 1.8 X10*3/uL (1.2-4.9); Lymphocytes Percent Auto 8.3 % (20-40); Mean Corpuscular HGB Conc 34.5 g/dl (31.0-36.0); Mean Corpuscular Hemoglobin 33.8 pg (27.0-33.0); Mean Corpuscular Volume 97.9 fL (80.0-98.0); Mean Platelet Volume 12.3 fL (9.4-12.4); Monocytes Absolute Auto 1.4 X10*3/uL (0.1-1.2); Monocytes Percent Auto 6.5 % (2-11); Neutrophils Absolute Auto 17.5 x10*3/uL (2.0-8.3); Neutrophils Percent Auto 80.7 % (45-73); Platelet Count 143 X10*3/uL (160-400); Red Blood Count 3.37 X10*6/uL (4.60-5.80); Red Cell Distribution Width 14.6 % (11.0-16.0); White Blood Count 21.6 X10*3/uL (4.8-10.8)
[2022-12-30 05:25] LABS: Alanine Aminotransferase 128 U/L (0-40); Albumin Level 2.9 g/dL (3.5-5.0); Alkaline Phosphatase 196 U/L (39-117); Anion Gap 27 (12-20); Aspartate Amino Transferase 118 U/L (5-37); Bilirubin Total 8.9 mg/dL (0.0-1.0); Blood Urea Nitrogen 121 mg/dL (9-16); Calcium 8.2 mg/dL (8.4-10.2); Carbon Dioxide 19 mmol/L (22-29); Chloride 98 mmol/L (96-108); Creatinine Clr Calc Pharmacy 7.2; Estimated Glomerular Filt Rate 4; Glucose Random 137 mg/dL (60-115); Magnesium 2.8 mg/dL (1.6-2.6); Phosphorus 10.5 mg/dL (2.7-4.5); Potassium 4.7 mmol/L (3.3-5.1); Sodium 139 mmol/L (135-145); Total Protein 6.5 g/dL (6.5-8.0)
[2022-12-30 06:21] LABS: Ammonia 45 umol/L (13-55)
[2022-12-30] MEDS: Chlorhexidine Gluc Oral Rinse 15 ML MOUTHWASH BUCCAL ×3 (07:22→20:35)
[2022-12-30] MEDS: Lactulose 20 GM/30 ML SOLUTION PO (07:22)
--- NOTE | 2022-12-30 09:51 | MHC.CM.PN ---
Per discussion at rounds: pt not making any neurological improvement and continues on ventilatory and renal support. Pt's brother Augie in to visit from [place]: may opt for full supportive measures including peg, trach and HD. MD to order MRI to assess for ? hypoxic injury that would prevent a meaningful neuro recovery. Pt has [place] Medicaid and will need to convert to [place] for placement. Fax remitted to [facility] financial. If family does decide on full support options, pt will need LTAC placement and guardianship pursuance through the court. Will await clinical decisions before LTAC / guardianship pursuit.
[2022-12-30] MEDS: propofoL 1,000 MG/100 ML VIAL 15.93 MG IVCONT ×2 (10:41→15:13)
--- NOTE | 2022-12-30 10:53 | P.PNCC_ITS ---
Subjective Subjective Date of Service: 12/30/22 Interval History: 52-year-old gentleman with unclear past medical history admitted on 12/21/2022 with out of hospital PEA cardiac arrest with unclear down time with returned spontaneous circulation on arrival to emergency room, intubated during the CPR and transferred to intensive care unit. Patient with profound metabolic lactic acidosis, ischemic hepatitis, and acute renal failure requiring high dose vasopressor support. Hospital course significant for improvement in ischemic hepatitis and pressure requirements, but development of hemodialysis dependence and persistent encephalopathy. No events overnight. Critical Care Time (minutes): 45 Physical Exam Vital Signs: Vital Signs: Last Vital Signs Temp 99.7 F 12/30/22 09:56 Pulse 98 12/30/22 10:41 Resp 33 H 12/30/22 10:41 BP 155/84 H 12/30/22 10:41 Pulse Ox 96 12/30/22 10:41 O2 Del Method 12/30/22 09:56 O2 Flow Rate 35 12/26/22 06:00 FiO2 35 12/30/22 09:56 BMI result Body Mass Index 26.4 Const: General: other (comatose) Eyes: Sclerae: sclerae normal Neck: Neck: Yes no lymphadenopathy, Yes trachea midline and Yes supple Resp: Auscultation: clear to auscultation bilaterally Cardio: Rate: tachycardic Rhythm: regular rhythm Heart sounds: no gallops, no murmurs and no rubs GI: Palpation (GI): Soft to palpation and Other GI palpation findings present ( Nontender) Auscultation: normal bowel sounds Extrem: General: Yes no pedal edema, No clubbing and No cyanosis Objective Data Labs 12/30/22 04:55 12/30/22 04:55 Labs: Laboratory Results - last 24 hr 12/29/22 12/29/22 12/30/22 11:10 17:05 04:55 WBC 21.6 H RBC 3.37 L Hgb 11.4 L Hct 33.0 L MCV 97.9 MCH 33.8 H MCHC 34.5 RDW 14.6 Plt Count 143 L D MPV 12.3 Immature Gran % (Auto) 1.2 H Neut % (Auto) 80.7 H Lymph % (Auto) 8.3 L [place] % (Auto) 6.5 Eos % (Auto) 2.4 Baso % (Auto) 0.9 Lymph # (Auto) 1.8 [place] # (Auto) 1.4 H Eos # (Auto) 0.5 H Baso # (Auto) 0.2 Abs Immat Gran (auto) 0.26 H Absolute Neuts (auto) 17.5 H Absolute Nucleated RBC 0.000 Nucleated RBC % (auto) 0.0 VBG pH VBG pCO2 VBG pO2 VBG HCO3 VBG O2 Saturation VBG Base Excess Sodium Potassium Chloride Carbon Dioxide Anion Gap BUN Creatinine Estim Creat Clear Calc Estimated GFR POC Glucose 140 H 134 H Random Glucose Calcium Phosphorus Magnesium Total Bilirubin AST ALT Alkaline Phosphatase Ammonia Total Protein Albumin 12/30/22 12/30/22 12/30/22 04:55 04:57 06:10 WBC RBC Hgb Hct MCV MCH MCHC RDW Plt Count MPV Immature Gran % (Auto) Neut % (Auto) Lymph % (Auto) [place] % (Auto) Eos % (Auto) Baso % (Auto) Lymph # (Auto) [place] # (Auto) Eos # (Auto) Baso # (Auto) Abs Immat Gran (auto) Absolute Neuts (auto) Absolute Nucleated RBC Nucleated RBC % (auto) VBG pH 7.44 H VBG pCO2 28 VBG pO2 63 VBG HCO3 19 L VBG O2 Saturation 87.0 VBG Base Excess -3.1 Sodium 139 Potassium 4.7 Chloride 98 Carbon Dioxide 19 L Anion Gap 27 H BUN 121 H Creatinine 13.33 H* Estim Creat Clear Calc 7.2 Estimated GFR 4 POC Glucose Random Glucose 137 H Calcium 8.2 L Phosphorus 10.5 H Magnesium 2.8 H Total Bilirubin 8.9 H AST 118 H ALT 128 H Alkaline Phosphatase 196 H Ammonia 45 Total Protein 6.5 Albumin 2.9 L Microbiology Microbiology Results: Microbiology 12/26/22 08:44 Sputum - Suctioned Gram Stain - Final 12/26/22 08:44 Sputum - Suctioned Sputum Culture - Final Enterobacter aerogenes 12/25/22 09:58 Blood - Venous Blood Culture - Preliminary No growth after 48 hours. 12/25/22 09:54 Blood - Venous Blood Culture - Preliminary No growth after 48 hours. 12/21/22 Unknown Urine Catheterized - Giron Catheter Urine Culture - Final No growth. Progress Note: A&P Assessment and plan (1) Polysubstance abuse: Status: Acute (2) Cardiac arrest: Status: Acute (3) Acute respiratory failure: Status: Acute (4) Acute renal failure: Status: Acute (5) Encephalopathy: Status: Acute Plan Assessment: 52-year-old gentleman admitted with PEA out of hospital cardiac arrest with unclear down time with returned spontaneous circulation upon arrival to emergency room, intubated during the CPR Plan: Neuro: Comatose. Polysubstance abuse. No induced hypothermia secondary to hemodynamic instability. Persistent encephalopathy 9 days after cardiac arrest. Likely anoxic. Will obtain brain MRI. Cardiac: PEA out of hospital cardiac arrest with unclear down time. NSTEMI resolved. Off vasopressor support. Pulmonary: Acute respiratory failure, intubated during the CPR. Continue to titrate off ventilatory support as tolerated. Renal: Acute renal failure secondary to cardiac arrest. Oliguric. Likely ischemic ATN. Now hemodialysis dependent. Nephrology service care appreciated. Continue to monitor renal indices and urine output. Endo: No acute issues. GI: Ischemic hepatitis after cardiac arrest, resolved. ID: Enterobacter in sputum, continue Levaquin for 14 days. Heme/Onc: No acute issues. Psych: No acute issues. Miscellaneous: Family is considering goals of care. Prophylaxis: Pneumatic compression, famotidine Diet: Tube feeds Critical care time spent: 45 minutes Quality Stroke Does the patient have a stroke diagnosis?: No VTE Prior VTE?: No VTE Risk Level:: Medical - moderate - high VTE Device Contraindication: N/A - Device Ordered VTE Drug Contraindication: N/A - Med Ordered
--- NOTE | 2022-12-30 10:55 | MHC.CLN ---
F/U DISCUSSED WITH TEAM AT ROUNDS. RECEIVING HEMODIALYSIS. TOLERATING TUBE FEEDING: NEPRO AT MAX GOAL RATE 60 ML PER HOUR. FREE WATER FLUSH 240 ML Q 4 HOURS. PROVIDES: 2592 KCALS (28.8 KCALS/KG); 116.6 G PROTEIN 91.29 G/KG); FREE WATER FROM FORMULA 1047 ML PLUS FLUSH 1440 TI=[id number] ML (27.6 ML/KG). FOLLOW FOR TUBE FEED TOLERANCE AND LABS. CONTINUE TO FOLLOW PLAN OF CARE WITH TEAM
[2022-12-30] MEDS: Norepinephrine Bitartrate/D5W 8 MG/250 ML PLAST..BAG 8.44 MG IV (13:50)
--- NOTE | 2022-12-30 15:02 | PM.PNNEP ---
Subjective Subjective Date of Service: 12/30/22 Interval history: No events overnight. On HD this AM. D/W HD RN Physical Exam Vital Signs: Vital Signs: Last Vital Signs Temp 99.7 F 12/30/22 14:00 Pulse 76 12/30/22 14:00 Resp 20 12/30/22 14:00 BP 104/60 12/30/22 14:00 Pulse Ox 98 12/30/22 14:00 O2 Del Method 12/30/22 14:00 O2 Flow Rate 35 12/26/22 06:00 FiO2 35 12/30/22 14:58 BMI result Body Mass Index 26.4 Const: General: no acute distress Neck: Neck: Yes supple Resp: Auscultation: diminished lung sounds Cardio: Rate: regular rate GI: Palpation (GI): Soft to palpation Skin: General skin exam: no rashes or lesions noted Objective Data Labs 12/30/22 04:55 12/30/22 04:55 Labs: Laboratory Results - last 24 hr 12/29/22 12/30/22 12/30/22 17:05 04:55 04:55 WBC 21.6 H RBC 3.37 L Hgb 11.4 L Hct 33.0 L MCV 97.9 MCH 33.8 H MCHC 34.5 RDW 14.6 Plt Count 143 L D MPV 12.3 Immature Gran % (Auto) 1.2 H Neut % (Auto) 80.7 H Lymph % (Auto) 8.3 L [place] % (Auto) 6.5 Eos % (Auto) 2.4 Baso % (Auto) 0.9 Lymph # (Auto) 1.8 [place] # (Auto) 1.4 H Eos # (Auto) 0.5 H Baso # (Auto) 0.2 Abs Immat Gran (auto) 0.26 H Absolute Neuts (auto) 17.5 H Absolute Nucleated RBC 0.000 Nucleated RBC % (auto) 0.0 VBG pH VBG pCO2 VBG pO2 VBG HCO3 VBG O2 Saturation VBG Base Excess Sodium 139 Potassium 4.7 Chloride 98 Carbon Dioxide 19 L Anion Gap 27 H BUN 121 H Creatinine 13.33 H* Estim Creat Clear Calc 7.2 Estimated GFR 4 POC Glucose 134 H Random Glucose 137 H Calcium 8.2 L Phosphorus 10.5 H Magnesium 2.8 H Total Bilirubin 8.9 H AST 118 H ALT 128 H Alkaline Phosphatase 196 H Ammonia Total Protein 6.5 Albumin 2.9 L 12/30/22 12/30/22 04:57 06:10 WBC RBC Hgb Hct MCV MCH MCHC RDW Plt Count MPV Immature Gran % (Auto) Neut % (Auto) Lymph % (Auto) [place] % (Auto) Eos % (Auto) Baso % (Auto) Lymph # (Auto) [place] # (Auto) Eos # (Auto) Baso # (Auto) Abs Immat Gran (auto) Absolute Neuts (auto) Absolute Nucleated RBC Nucleated RBC % (auto) VBG pH 7.44 H VBG pCO2 28 VBG pO2 63 VBG HCO3 19 L VBG O2 Saturation 87.0 VBG Base Excess -3.1 Sodium Potassium Chloride Carbon Dioxide Anion Gap BUN Creatinine Estim Creat Clear Calc Estimated GFR POC Glucose Random Glucose Calcium Phosphorus Magnesium Total Bilirubin AST ALT Alkaline Phosphatase Ammonia 45 Total Protein Albumin Microbiology Microbiology Results: Microbiology 12/25/22 09:54 Blood - Venous Blood Culture - Final No growth after 5 days. 12/25/22 09:58 Blood - Venous Blood Culture - Final No growth after 5 days. 12/26/22 08:44 Sputum - Suctioned Gram Stain - Final 12/26/22 08:44 Sputum - Suctioned Sputum Culture - Final Enterobacter aerogenes 12/21/22 Unknown Urine Catheterized - Giron Catheter Urine Culture - Final No growth. Procedures Date of Service Date of Service: 12/30/22 Assessment & Plan Assessment and plan (1) Acute renal failure: Status: Acute Assessment and Plan: VITA due to Ischemic ATN Remains HD dependent Getting HD this AM Had HD on Friday and Sat C/W rest of current management Time Spent With Patient Time: Total time managing care of this patient today ____ minutes. Progress Note: Quality Stroke Does the patient have a stroke diagnosis?: No
[2022-12-30] MEDS: propofoL 1,000 MG/100 ML VIAL 21.24 MG IVCONT ×2 (18:58→22:59)
[2022-12-31] VITALS (34 sets, daily range): BP systolic 101–141; BP diastolic 51–70; PULSE 64–92; RESP 20–35; TEMP 34.9–37.6; O2SAT 94–100; BMI 25.9
[2022-12-31] MEDS: propofoL 1,000 MG/100 ML VIAL 21.24 MG IVCONT ×2 (02:56→06:44)
[2022-12-31] MEDS: levETIRAcetam in NaCl (iso-os) 1,000 MG/100 ML PIGGYBACK 400 MG IV ×2 (02:57→14:55)
[2022-12-31 04:52] LABS: VBG Base Excess -3.4 mmol/L; VBG HCO3 18 mmol/L (22-26); VBG pCO2 26 mmHg; VBG pH 7.46 (7.32-7.43); VBG pO2 65 mmHg
[2022-12-31 04:54] LABS: Venous Blood Gas Refer to POC result
[2022-12-31 05:02] LABS: MANUAL DIFF FLAG NO
[2022-12-31 05:06] LABS: Basophils Absolute Auto 0.2 X10*3/uL (0.0-0.2); Basophils Percent Auto 0.9 % (0-2); Eosinophils Absolute Auto 0.7 X10*3/uL (0.0-0.4); Eosinophils Percent Auto 3.1 % (0-4); Hematocrit 30.9 % (42.0-52.0); Hemoglobin 10.5 g/dl (14.0-18.0); Imm Gran Pct Auto 1.3 % (0.0-0.4); Lymphocytes Absolute Auto 2.2 X10*3/uL (1.2-4.9); Lymphocytes Percent Auto 9.9 % (20-40); Mean Corpuscular Hemoglobin 33.7 pg (27.0-33.0); Mean Platelet Volume 12.5 fL (9.4-12.4); Monocytes Absolute Auto 1.4 X10*3/uL (0.1-1.2); Monocytes Percent Auto 6.4 % (2-11); Neutrophils Absolute Auto 17.5 x10*3/uL (2.0-8.3); Neutrophils Percent Auto 78.4 % (45-73); Platelet Count 136 X10*3/uL (160-400); Red Blood Count 3.12 X10*6/uL (4.60-5.80); Red Cell Distribution Width 14.8 % (11.0-16.0); White Blood Count 22.4 X10*3/uL (4.8-10.8)
[2022-12-31 05:26] LABS: Albumin Level 2.6 g/dL (3.5-5.0); Anion Gap 22 (12-20); Blood Urea Nitrogen 90 mg/dL (9-16); Calcium 7.8 mg/dL (8.4-10.2); Carbon Dioxide 20 mmol/L (22-29); Chloride 97 mmol/L (96-108); Creatinine Clr Calc Pharmacy 9.3; Estimated Glomerular Filt Rate 5; Glucose Random 109 mg/dL (60-115); Magnesium 2.6 mg/dL (1.6-2.6); Phosphorus 10.8 mg/dL (2.7-4.5); Potassium 4.2 mmol/L (3.3-5.1); Sodium 135 mmol/L (135-145)
[2022-12-31] MEDS: Albumin Human 25 % 100 ML IV ×3 (08:28→19:33)
[2022-12-31] MEDS: Famotidine/PF 20 MG/2 ML VIAL IVPUSH (08:39)
[2022-12-31] MEDS: Chlorhexidine Gluc Oral Rinse 15 ML MOUTHWASH BUCCAL ×3 (08:39→19:33)
--- NOTE | 2022-12-31 11:07 | P.PNCC_ITS ---
Subjective Subjective Date of Service: 12/31/22 Interval History: 52-year-old gentleman with unclear past medical history admitted on 12/21/2022 with out of hospital PEA cardiac arrest with unclear down time with returned spontaneous circulation on arrival to emergency room, intubated during the CPR and transferred to intensive care unit. Patient with profound metabolic lactic acidosis, ischemic hepatitis, and acute renal failure requiring high dose vasopressor support. Hospital course significant for improvement in ischemic hepatitis and pressure requirements, but development of hemodialysis dependence and persistent encephalopathy with minimal improvement. No events overnight. Critical Care Time (minutes): 45 Physical Exam Vital Signs: Vital Signs: Last Vital Signs Temp 99.7 F 12/31/22 11:00 Pulse 81 12/31/22 11:00 Resp 22 H 12/31/22 11:00 BP 129/66 12/31/22 11:00 Pulse Ox 96 12/31/22 11:00 O2 Del Method 12/31/22 11:00 O2 Flow Rate 35 12/26/22 06:00 FiO2 35 12/31/22 11:00 BMI result Body Mass Index 25.9 Const: General: other (comatose) Eyes: Sclerae: sclerae normal Pupils: Equal, round and reactive pupils present Neck: Neck: Yes no lymphadenopathy, Yes trachea midline and Yes supple Resp: Auscultation: clear to auscultation bilaterally Cardio: Rate: regular rate Rhythm: regular rhythm Heart sounds: no gallops, no murmurs and no rubs GI: Palpation (GI): Soft to palpation and Other GI palpation findings present ( Nontender) Auscultation: normal bowel sounds Neuro: Cranial nerves: Yes Equal, round and reactive pupils present Extrem: General: Yes no pedal edema, No clubbing and No cyanosis Objective Data Labs 12/31/22 04:47 12/31/22 04:47 Labs: Laboratory Results - last 24 hr 12/31/22 12/31/22 12/31/22 04:44 04:47 04:47 WBC 22.4 H RBC 3.12 L Hgb 10.5 L Hct 30.9 L MCV 99.0 H MCH 33.7 H MCHC 34.0 RDW 14.8 Plt Count 136 L MPV 12.5 H Immature Gran % (Auto) 1.3 H Neut % (Auto) 78.4 H Lymph % (Auto) 9.9 L [place] % (Auto) 6.4 Eos % (Auto) 3.1 Baso % (Auto) 0.9 Lymph # (Auto) 2.2 [place] # (Auto) 1.4 H Eos # (Auto) 0.7 H Baso # (Auto) 0.2 Abs Immat Gran (auto) 0.30 H Absolute Neuts (auto) 17.5 H Absolute Nucleated RBC 0.000 Nucleated RBC % (auto) 0.0 VBG pH 7.46 H VBG pCO2 26 VBG pO2 65 VBG HCO3 18 L VBG O2 Saturation 90.0 VBG Base Excess -3.4 Sodium 135 Potassium 4.2 Chloride 97 Carbon Dioxide 20 L Anion Gap 22 H BUN 90 H Creatinine 10.35 H* Estim Creat Clear Calc 9.3 Estimated GFR 5 Random Glucose 109 Calcium 7.8 L Phosphorus 10.8 H Magnesium 2.6 Albumin 2.6 L Microbiology Microbiology Results: Microbiology 12/25/22 09:54 Blood - Venous Blood Culture - Final No growth after 5 days. 12/25/22 09:58 Blood - Venous Blood Culture - Final No growth after 5 days. 12/26/22 08:44 Sputum - Suctioned Gram Stain - Final 12/26/22 08:44 Sputum - Suctioned Sputum Culture - Final Enterobacter aerogenes 12/21/22 Unknown Urine Catheterized - Giron Catheter Urine Culture - Final No growth. Progress Note: A&P Assessment and plan (1) Polysubstance abuse: Status: Acute (2) Cardiac arrest: Status: Acute (3) Acute respiratory failure: Status: Acute (4) Acute renal failure: Status: Acute (5) Encephalopathy: Status: Acute Plan Assessment: 52-year-old gentleman admitted with PEA out of hospital cardiac arrest with unclear down time with returned spontaneous circulation upon arrival to emergency room, intubated during the CPR Plan: Neuro: Comatose. Polysubstance abuse. No induced hypothermia secondary to hemodynamic instability. Persistent encephalopathy 10 days after cardiac arrest with minimal improvement. MRI with abnormalities in internal capsule, likely anoxic. Neurology evaluation requested. Cardiac: PEA out of hospital cardiac arrest with unclear down time. NSTEMI resolved. Pulmonary: Acute respiratory failure, intubated during the CPR. Continue to tit rate off ventilatory support as tolerated. Renal: Acute renal failure secondary to cardiac arrest. Oliguric. Likely ischemic ATN. Now hemodialysis dependent. Nephrology service care appreciated. Continue to monitor renal indices and urine output. Endo: No acute issues. GI: Ischemic hepatitis after cardiac arrest, resolved. ID: Enterobacter in sputum, continue Levaquin for 14 days. Heme/Onc: No acute issues. Psych: No acute issues. Miscellaneous: Family is considering goals of care. Prophylaxis: Pneumatic compression, famotidine Diet: Tube feeds Critical care time spent: 45 minutes Quality Stroke Does the patient have a stroke diagnosis?: No VTE Prior VTE?: No VTE Risk Level:: Medical - moderate - high VTE Device Contraindication: N/A - Device Ordered VTE Drug Contraindication: N/A - Med Ordered
[2022-12-31] MEDS: propofoL 1,000 MG/100 ML VIAL 10.62 MG IVCONT ×2 (11:49→18:47)
--- NOTE | 2022-12-31 12:24 | MHC.CLN ---
F/U RECEIVING HEMODIALYSIS. TOLERATING TUBE FEEDING: NEPRO AT MAX GOAL RATE 60 ML PER HOUR. FREE WATER FLUSH 240 ML Q 4 HOURS. PROVIDES: 2592 KCALS, 2872 KCALS WITH SEDATION (33 KCALS/KG); 116.6 G PROTEIN (1.3 G/KG); FREE WATER FROM FORMULA 1047 ML PLUS FLUSH 1440 KN=0175 ML (28.6 ML/KG). FOLLOW FOR TUBE FEED TOLERANCE AND LABS. CONTINUE TO FOLLOW PLAN OF CARE WITH TEAM.
--- NOTE | 2022-12-31 12:30 | P.CNNE_ITS ---
History of Present Illness Data of Consult Service Date: 12/31/22 Primary Care Provider: Unknown Physician HPI This 52-year-old man was admitted on 12/21/2022 with out of hospital PEA cardiac arrest with unclear down time with returned spontaneous circulation on arrival to emergency room, intubated during the CPR and transferred to intensive care unit.? Patient with profound metabolic lactic acidosis, ischemic hepatitis, and acute renal failure requiring high dose vasopressor support.Positive for cocaine, opioids and Fentanyl. Remains unresponsive with diffusely very slow EEG and abnormal MRI which could be c/w Hypoxic brain damage vs less likely PRES. When the patient initially had no brain stem functions but in the last few days he has had return of the pupillary light responses and roving eye movements and breaathes above the vent at times. He is given a low dose propofol at this time to help control the vent. No attempt has been made to wean off the respirator. He has never awakened or followed commands. Review of Systems Review of Systems: Yes unobtainable due to endotracheal tube, Unobtainable due to mental condition and Unobtainable due to mental status PMFSH Social History Social History Household Members: Unknown / Unable to assess Housing: Unknown / Unable to assess Unable to assess alcohol history related to: Unable to respond Patient Tobacco Use Status: Tobacco use Unknown Use of substances other than those prescribed or required for medical reasons: Unable to respond Currently Displaying Signs/Symptoms of Drug Intoxication Withdrawal: No Spiritual Healthcare Practices: unable to assess Yazidi Healthcare Practices: unable to assess Cultural Healthcare Practices: unable to assess Advance Directives: No Advance Directives Information Provided: No Advance Directives on File: No Nutrition Risks: No Nutritional Risk Meds Allergies Allergy/AdvReac Type Severity Reaction Status Date / Time Unable to Assess Allergy Verified 12/21/22 06:15 Active Medications: Current Medications Chlorhexidine Gluconate (Chlorhexidine Gluc Oral Rinse 15 Ml Mouthwash) 15 ml BUCCAL TID [facility] Last Admin: 12/31/22 08:39 Dose: 15 ml Famotidine (Famotidine/Pf 20 Mg/2 Ml Vial) 20 mg IVPUSH DAILY [facility] Last Admin: 12/31/22 08:39 Dose: 20 mg Norepinephrine Bitartrate (Levophed) 8 mg in 250 mls @ 0 mls/hr IV .Q0M [facility]; Protocol Last Titration: 12/31/22 10:31 Dose: 0 mcg/kg/min, 0 mls/hr Dextrose (D10) 250 mls @ 750 mls/hr IV Q15M PRN; Protocol PRN Reason: per Hypoglycemia Standing Ord. Levetiracetam (Keppra) 1,000 mg in 100 mls @ 400 mls/hr IV Q12H [facility] Last Infusion: 12/31/22 04:18 Dose: Infused Levofloxacin (Levaquin) 500 mg in 100 mls @ 100 mls/hr IV Q48H [facility] Propofol (Diprivan) 1,000 mg in 100 mls @ 0 mls/hr IVCONT .Q0M [facility]; Protocol Last Admin: 12/31/22 11:49 Dose: 20 mcg/kg/min, 10.62 mls/hr Albumin Human (Kedbumin 25 %) 100 mls @ 100 mls/hr IV Q6H [facility] Stop: 01/01/23 02:59 Last Infusion: 12/31/22 10:11 Dose: Infused Naloxone HCl (Naloxone Hcl 0.4 Mg/Ml Vial) 0.2 mg IVPUSH Q2M PRN PRN Reason: Excessive sedation or RR < 8 Home Medications Medication Instructions Recorded Confirmed Last Taken Type Unobtainable 12/21/22 12/21/22 Unknown History Physical Exam Vital Signs: Vital Signs: Last Vital Signs Temp 99.5 F 12/31/22 12:00 Pulse 80 12/31/22 12:00 Resp 26 H 12/31/22 12:00 BP 125/66 12/31/22 12:00 Pulse Ox 95 12/31/22 12:00 O2 Del Method 12/31/22 12:00 O2 Flow Rate 35 12/26/22 06:00 FiO2 30 12/31/22 12:00 BMI result Body Mass Index 25.9 Const: General: no acute distress and other (comatose) Eyes: Sclerae: sclerae normal Pupils: Equal, round and reactive pupils present, Pupils not reactive and Pinpoint pupils bilaterally Neck: Neck: Yes no lymphadenopathy, Yes trachea midline and Yes supple Resp: Auscultation: clear to auscultation bilaterally and diminished lung sounds Cardio: Rate: regular rate and tachycardic Rhythm: regular rhythm Heart sounds: no gallops, no murmurs and no rubs GI: Palpation (GI): Soft to palpation and Other GI palpation findings present ( Nontender) Auscultation: normal bowel sounds Skin: General skin exam: no rashes or lesions noted Neuro: Other: Intubated On event. Pupils 3 mm round reactive to light. Roving eye movements. Corneal reflexes intaact. Decerebrate posturing on deep nailbed pressure. Reflexes are absent plantar responses are neutral Cranial nerves: Yes Equal, round and reactive pupils present Extrem: General: Yes no pedal edema, No clubbing and No cyanosis Results Labs 12/31/22 04:47 12/31/22 04:47 Labs: Short CBC 12/31/22 Range/Units 04:47 WBC 22.4 H (4.8-10.8) X10*3/uL Hgb 10.5 L (14.0-18.0) g/dl Hct 30.9 L (42.0-52.0) % Plt Count 136 L (160-400) X10*3/uL BMP 12/31/22 04:47 Sodium 135 Potassium 4.2 Chloride 97 Carbon Dioxide 20 L BUN 90 H Creatinine 10.35 H* Calcium 7.8 L Liver Function 12/31/22 Range/Units 04:47 Albumin 2.6 L (3.5-5.0) g/dL Microbiology Microbiology Results: Microbiology 12/25/22 09:54 Blood - Venous Blood Culture - Final No growth after 5 days. 12/25/22 09:58 Blood - Venous Blood Culture - Final No growth after 5 days. 12/26/22 08:44 Sputum - Suctioned Gram Stain - Final 12/26/22 08:44 Sputum - Suctioned Sputum Culture - Final Enterobacter aerogenes 12/21/22 Unknown Urine Catheterized - Giron Catheter Urine Culture - Final No growth. Assessment and Plan (1) Encephalopathy: Status: Acute Therapist to have a very significant hypoxic encephalopathy Secondary to cardiac arrestand has not woken up in 10 days. There has been return of brainstem function. His MRI is consistent with hypoxic encephalopathy. Overall prognosis for recovery is very poor. Recommendation and consider weaning him off the respirator and ddiscussed with his brother what level of care should be continued where they should be comfort measures only at this point. In the meantime I would correct all of his metabolic abnormalities. (2) Polysubstance abuse: Status: Acute (3) Cardiac arrest: Status: Acute (4) Acute respiratory failure: Status: Acute (5) Acute renal failure: Status: Acute VITA due to Ischemic ATN Remains HD dependent Due HD tomorrow Continued vol optimization on HD C/W rest of current management Plan Assessment: 52-year-old gentleman admitted with PEA out of hospital cardiac arrest with unclear down time with returned spontaneous circulation upon arrival to emergency room, intubated during the CPR Plan: Neuro: Comatose. Polysubstance abuse. No induced hypothermia secondary to hemodynamic instability. Persistent encephalopathy 10 days after cardiac arrest with minimal improvement. MRI with abnormalities in internal capsule, likely anoxic. Neurology evaluation requested. Cardiac: PEA out of hospital cardiac arrest with unclear down time. NSTEMI resolved. Pulmonary: Acute respiratory failure, intubated during the CPR. Continue to titrate off ventilatory support as tolerated. Renal: Acute renal failure secondary to cardiac arrest. Oliguric. Likely ischemic ATN. Now hemodialysis dependent. Nephrology service care appreciated. Continue to monitor renal indices and urine output. Endo: No acute issues. GI: Ischemic hepatitis after cardiac arrest, resolved. ID: Enterobacter in sputum, continue Levaquin for 14 days. Heme/Onc: No acute issues. Psych: No acute issues. Miscellaneous: Family is considering goals of care. Prophylaxis: Pneumatic compression, famotidine Diet: Tube feeds Critical care time spent: 45 minutes Time Spent With Patient Time: Total time managing care of this patient today ____ minutes. Procedures Date of Service Date of Service: 12/31/22
--- NOTE | 2022-12-31 12:46 | PC.NURSE ---
Martin removed 12:30 12/31/22 r/t oliguria., Pt due to void 18:30. Discussion in rounds with MD, RN, and infection control nurse indicated no criteria for continuing martin; this RN directed to remove martin.
--- NOTE | 2022-12-31 13:11 | PM.PNNEP ---
Subjective Subjective Date of Service: 12/31/22 Interval history: No events overnight. All recent data reviewed. Had HD yesterday; D/W ICU Attending Physical Exam Vital Signs: Vital Signs: Last Vital Signs Temp 98.6 F 12/31/22 13:00 Pulse 80 12/31/22 13:00 Resp 34 H 12/31/22 13:00 BP 121/69 12/31/22 13:00 Pulse Ox 100 12/31/22 13:00 O2 Del Method 12/31/22 13:00 O2 Flow Rate 35 12/26/22 06:00 FiO2 30 12/31/22 13:00 BMI result Body Mass Index 25.9 Const: General: no acute distress Neck: Neck: Yes supple Resp: Auscultation: diminished lung sounds Cardio: Rate: regular rate GI: Palpation (GI): Soft to palpation Neuro: Other: Intubated Objective Data Labs 12/31/22 04:47 12/31/22 04:47 Labs: Laboratory Results - last 24 hr 12/31/22 12/31/22 12/31/22 04:44 04:47 04:47 WBC 22.4 H RBC 3.12 L Hgb 10.5 L Hct 30.9 L MCV 99.0 H MCH 33.7 H MCHC 34.0 RDW 14.8 Plt Count 136 L MPV 12.5 H Immature Gran % (Auto) 1.3 H Neut % (Auto) 78.4 H Lymph % (Auto) 9.9 L [place] % (Auto) 6.4 Eos % (Auto) 3.1 Baso % (Auto) 0.9 Lymph # (Auto) 2.2 [place] # (Auto) 1.4 H Eos # (Auto) 0.7 H Baso # (Auto) 0.2 Abs Immat Gran (auto) 0.30 H Absolute Neuts (auto) 17.5 H Absolute Nucleated RBC 0.000 Nucleated RBC % (auto) 0.0 VBG pH 7.46 H VBG pCO2 26 VBG pO2 65 VBG HCO3 18 L VBG O2 Saturation 90.0 VBG Base Excess -3.4 Sodium 135 Potassium 4.2 Chloride 97 Carbon Dioxide 20 L Anion Gap 22 H BUN 90 H Creatinine 10.35 H* Estim Creat Clear Calc 9.3 Estimated GFR 5 Random Glucose 109 Calcium 7.8 L Phosphorus 10.8 H Magnesium 2.6 Albumin 2.6 L Microbiology Microbiology Results: Microbiology 12/25/22 09:54 Blood - Venous Blood Culture - Final No growth after 5 days. 12/25/22 09:58 Blood - Venous Blood Culture - Final No growth after 5 days. 12/26/22 08:44 Sputum - Suctioned Gram Stain - Final 12/26/22 08:44 Sputum - Suctioned Sputum Culture - Final Enterobacter aerogenes 12/21/22 Unknown Urine Catheterized - Giron Catheter Urine Culture - Final No growth. Procedures Date of Service Date of Service: 12/31/22 Assessment & Plan Assessment and plan (1) Acute renal failure: Status: Acute Assessment and Plan: VITA due to Ischemic ATN Remains HD dependent Due HD tomorrow Continued vol optimization on HD C/W rest of current management Progress Note: Quality Stroke Does the patient have a stroke diagnosis?: No
[2022-12-31] MEDS: levoFLOXacin/D5W 500 MG/100 ML PIGGYBACK 100 MG IV (16:11)
[2022-12-31 18:00] LABS: Glucose, Whole Blood 102 mg/dL (60-115)
[2023-01-01] VITALS (31 sets, daily range): BP systolic 92–153; BP diastolic 49–76; PULSE 73–87; RESP 25–33; TEMP 34.7–37.5; O2SAT 96–100; BMI 26.8
[2023-01-01] MEDS: propofoL 1,000 MG/100 ML VIAL 10.62 MG IVCONT ×2 (01:39→07:14)
[2023-01-01] MEDS: Albumin Human 25 % 100 ML IV (01:39)
[2023-01-01] MEDS: levETIRAcetam in NaCl (iso-os) 1,000 MG/100 ML PIGGYBACK 400 MG IV ×2 (03:09→16:06)
[2023-01-01 04:42] LABS: VBG Base Excess -8.4 mmol/L; VBG HCO3 15 mmol/L (22-26); VBG pCO2 26 mmHg; VBG pH 7.37 (7.32-7.43); VBG pO2 59 mmHg
[2023-01-01 04:43] LABS: Venous Blood Gas Refer to POC result
[2023-01-01 04:52] LABS: MANUAL DIFF FLAG NO
[2023-01-01 04:56] LABS: Basophils Absolute Auto 0.1 X10*3/uL (0.0-0.2); Basophils Percent Auto 0.7 % (0-2); Eosinophils Absolute Auto 0.5 X10*3/uL (0.0-0.4); Eosinophils Percent Auto 2.8 % (0-4); Hematocrit 27.3 % (42.0-52.0); Hemoglobin 9.6 g/dl (14.0-18.0); Imm Gran Abs Auto 0.16 X10*3/uL (0.00-0.03); Imm Gran Pct Auto 0.9 % (0.0-0.4); Lymphocytes Absolute Auto 1.6 X10*3/uL (1.2-4.9); Lymphocytes Percent Auto 8.4 % (20-40); Mean Corpuscular HGB Conc 35.2 g/dl (31.0-36.0); Mean Corpuscular Hemoglobin 33.8 pg (27.0-33.0); Mean Corpuscular Volume 96.1 fL (80.0-98.0); Mean Platelet Volume 11.6 fL (9.4-12.4); Monocytes Absolute Auto 1.2 X10*3/uL (0.1-1.2); Monocytes Percent Auto 6.6 % (2-11); Neutrophils Absolute Auto 15.1 x10*3/uL (2.0-8.3); Neutrophils Percent Auto 80.6 % (45-73); Platelet Count 165 X10*3/uL (160-400); Red Blood Count 2.84 X10*6/uL (4.60-5.80); Red Cell Distribution Width 14.5 % (11.0-16.0); White Blood Count 18.7 X10*3/uL (4.8-10.8)
[2023-01-01 05:15] LABS: Albumin Level 3.4 g/dL (3.5-5.0); Anion Gap 27 (12-20); Blood Urea Nitrogen 121 mg/dL (9-16); Calcium 7.7 mg/dL (8.4-10.2); Carbon Dioxide 16 mmol/L (22-29); Chloride 94 mmol/L (96-108); Estimated Glomerular Filt Rate 4; Glucose Random 93 mg/dL (60-115); Magnesium 2.8 mg/dL (1.6-2.6); Phosphorus 12.8 mg/dL (2.7-4.5); Potassium 4.6 mmol/L (3.3-5.1); Sodium 132 mmol/L (135-145)
[2023-01-01] MEDS: Famotidine/PF 20 MG/2 ML VIAL IVPUSH (08:01)
[2023-01-01] MEDS: Chlorhexidine Gluc Oral Rinse 15 ML MOUTHWASH BUCCAL ×3 (08:01→21:44)
--- NOTE | 2023-01-01 10:14 | MHC.CLN ---
F/U INTUBATED AND SEDATED. RECEIVING HEMODIALYSIS. PLAN TO DECREASE PROPOFOL. TOLERATING TUBE FEEDING. RD RECOMMENDS DECREASE TO TF RATE. CHANGE TO NEPRO TO MAX GOAL RATE 50 ML PER HOUR. FREE WATER FLUSH 240 ML Q 4 HOURS. TUBE FEEDING PROVIDES: 2160 KCALS (24.1 KCALS/KG); 97 G PROTEIN (1.08 G/KG); FREE WATER FROM FORMULA 872 ML PLUS FLUSH 1440 JB=2238 ML (25.8 ML/KG). FOLLOW FOR TUBE FEED TOLERANCE AND LABS. CONTINUE TO FOLLOW PLAN OF CARE WITH TEAM.
--- NOTE | 2023-01-01 13:50 | P.PNNP_ITS ---
Subjective Subjective Date of Service: 01/01/23 Interval history: All recent data reviewed. On HD Physical Exam Vital Signs: Vital Signs: Last Vital Signs Temp 99.3 F 01/01/23 13:00 Pulse 78 01/01/23 13:00 Resp 27 H 01/01/23 13:00 BP 133/65 01/01/23 13:00 Pulse Ox 97 01/01/23 13:00 O2 Del Method 01/01/23 13:00 O2 Flow Rate 35 12/26/22 06:00 FiO2 25 01/01/23 13:00 BMI result Body Mass Index 26.8 Const: General: no acute distress Resp: Auscultation: diminished lung sounds Cardio: Rate: regular rate GI: Palpation (GI): Soft to palpation Skin: General skin exam: no rashes or lesions noted Objective Data Labs 01/01/23 04:35 01/01/23 04:35 Labs: Laboratory Results - last 24 hr 12/31/22 01/01/23 01/01/23 17:57 04:34 04:35 WBC 18.7 H RBC 2.84 L Hgb 9.6 L Hct 27.3 L MCV 96.1 MCH 33.8 H MCHC 35.2 RDW 14.5 Plt Count 165 MPV 11.6 Immature Gran % (Auto) 0.9 H Neut % (Auto) 80.6 H Lymph % (Auto) 8.4 L [place] % (Auto) 6.6 Eos % (Auto) 2.8 Baso % (Auto) 0.7 Lymph # (Auto) 1.6 [place] # (Auto) 1.2 Eos # (Auto) 0.5 H Baso # (Auto) 0.1 Abs Immat Gran (auto) 0.16 H Absolute Neuts (auto) 15.1 H Absolute Nucleated RBC 0.000 Nucleated RBC % (auto) 0.0 VBG pH 7.37 VBG pCO2 26 VBG pO2 59 VBG HCO3 15 L VBG O2 Saturation 84.0 VBG Base Excess -8.4 Sodium Potassium Chloride Carbon Dioxide Anion Gap BUN Creatinine Estim Creat Clear Calc Estimated GFR POC Glucose 102 Random Glucose Calcium Phosphorus Magnesium Albumin 01/01/23 04:35 WBC RBC Hgb Hct MCV MCH MCHC RDW Plt Count MPV Immature Gran % (Auto) Neut % (Auto) Lymph % (Auto) [place] % (Auto) Eos % (Auto) Baso % (Auto) Lymph # (Auto) [place] # (Auto) Eos # (Auto) Baso # (Auto) Abs Immat Gran (auto) Absolute Neuts (auto) Absolute Nucleated RBC Nucleated RBC % (auto) VBG pH VBG pCO2 VBG pO2 VBG HCO3 VBG O2 Saturation VBG Base Excess Sodium 132 L Potassium 4.6 Chloride 94 L Carbon Dioxide 16 L Anion Gap 27 H BUN 121 H Creatinine 12.09 H* Estim Creat Clear Calc 8.0 Estimated GFR 4 POC Glucose Random Glucose 93 Calcium 7.7 L Phosphorus 12.8 H Magnesium 2.8 H Albumin 3.4 L Microbiology Microbiology Results: Microbiology 12/25/22 09:54 Blood - Venous Blood Culture - Final No growth after 5 days. 12/25/22 09:58 Blood - Venous Blood Culture - Final No growth after 5 days. 12/26/22 08:44 Sputum - Suctioned Gram Stain - Final 12/26/22 08:44 Sputum - Suctioned Sputum Culture - Final Enterobacter aerogenes 12/21/22 Unknown Urine Catheterized - Giron Catheter Urine Culture - Final No growth. Procedures Date of Service Date of Service: 01/01/23 Assessment & Plan Assessment and plan (1) Acute renal failure: Status: Acute Plan VITA due to Ischemic ATN Remains on HD Continued vol optimization on HD C/W rest of current management Time Spent With Patient Time: Total time managing care of this patient today ____ minutes. Progress Note: Quality Stroke Does the patient have a stroke diagnosis?: No
--- NOTE | 2023-01-01 13:52 | PM.CCPN ---
Subjective Subjective Date of Service: 01/01/23 Interval History: 52-year-old gentleman with unclear past medical history admitted on 12/21/2022 with out of hospital PEA cardiac arrest with unclear down time with returned spontaneous circulation on arrival to emergency room, intubated during the CPR and transferred to intensive care unit. Patient with profound metabolic lactic acidosis, ischemic hepatitis, and acute renal failure requiring high dose vasopressor support. Hospital course significant for improvement in ischemic hepatitis and pressor requirements, but development of hemodialysis dependence and persistent encephalopathy with minimal improvement.[facility] brain with significant anoxic injury. Evaluated by neurology and deemed to have very slim chances of meaningful recovery. No events overnight. Critical Care Time (minutes): 45 Physical Exam Vital Signs: Vital Signs: Last Vital Signs Temp 99.3 F 01/01/23 13:00 Pulse 78 01/01/23 13:00 Resp 27 H 01/01/23 13:00 BP 133/65 01/01/23 13:00 Pulse Ox 97 01/01/23 13:00 O2 Del Method 01/01/23 13:00 O2 Flow Rate 35 12/26/22 06:00 FiO2 25 01/01/23 13:00 BMI result Body Mass Index 26.8 Const: General: no acute distress Eyes: Pupils: Equal, round and reactive pupils present EOM: EOMs intact bilaterally Neck: Neck: Yes no lymphadenopathy, Yes trachea midline and Yes supple Resp: Auscultation: clear to auscultation bilaterally Cardio: Rate: regular rate Rhythm: regular rhythm Heart sounds: no gallops, no murmurs and no rubs GI: Palpation (GI): Soft to palpation and Other GI palpation findings present ( Nontender) Auscultation: normal bowel sounds Neuro: Cranial nerves: Yes Equal, round and reactive pupils present Extrem: General: Yes no pedal edema, No clubbing and No cyanosis Objective Data Labs 01/01/23 04:35 01/01/23 04:35 Labs: Laboratory Results - last 24 hr 12/31/22 01/01/23 01/01/23 17:57 04:34 04:35 WBC 18.7 H RBC 2.84 L Hgb 9.6 L Hct 27.3 L MCV 96.1 MCH 33.8 H MCHC 35.2 RDW 14.5 Plt Count 165 MPV 11.6 Immature Gran % (Auto) 0.9 H Neut % (Auto) 80.6 H Lymph % (Auto) 8.4 L [place] % (Auto) 6.6 Eos % (Auto) 2.8 Baso % (Auto) 0.7 Lymph # (Auto) 1.6 [place] # (Auto) 1.2 Eos # (Auto) 0.5 H Baso # (Auto) 0.1 Abs Immat Gran (auto) 0.16 H Absolute Neuts (auto) 15.1 H Absolute Nucleated RBC 0.000 Nucleated RBC % (auto) 0.0 VBG pH 7.37 VBG pCO2 26 VBG pO2 59 VBG HCO3 15 L VBG O2 Saturation 84.0 VBG Base Excess -8.4 Sodium Potassium Chloride Carbon Dioxide Anion Gap BUN Creatinine Estim Creat Clear Calc Estimated GFR POC Glucose 102 Random Glucose Calcium Phosphorus Magnesium Albumin 01/01/23 04:35 WBC RBC Hgb Hct MCV MCH MCHC RDW Plt Count MPV Immature Gran % (Auto) Neut % (Auto) Lymph % (Auto) [place] % (Auto) Eos % (Auto) Baso % (Auto) Lymph # (Auto) [place] # (Auto) Eos # (Auto) Baso # (Auto) Abs Immat Gran (auto) Absolute Neuts (auto) Absolute Nucleated RBC Nucleated RBC % (auto) VBG pH VBG pCO2 VBG pO2 VBG HCO3 VBG O2 Saturation VBG Base Excess Sodium 132 L Potassium 4.6 Chloride 94 L Carbon Dioxide 16 L Anion Gap 27 H BUN 121 H Creatinine 12.09 H* Estim Creat Clear Calc 8.0 Estimated GFR 4 POC Glucose Random Glucose 93 Calcium 7.7 L Phosphorus 12.8 H Magnesium 2.8 H Albumin 3.4 L Microbiology Microbiology Results: Microbiology 12/25/22 09:54 Blood - Venous Blood Culture - Final No growth after 5 days. 12/25/22 09:58 Blood - Venous Blood Culture - Final No growth after 5 days. 12/26/22 08:44 Sputum - Suctioned Gram Stain - Final 12/26/22 08:44 Sputum - Suctioned Sputum Culture - Final Enterobacter aerogenes 12/21/22 Unknown Urine Catheterized - Giron Catheter Urine Culture - Final No growth. Progress Note: A&P Assessment and plan (1) Polysubstance abuse: Status: Acute (2) Cardiac arrest: Status: Acute (3) Acute respiratory failure: Status: Acute (4) Encephalopathy: Status: Acute Plan Assessment: 52-year-old gentleman admitted with PEA out of hospital cardiac arrest with unclear down time with returned spontaneous circulation upon arrival to emergency room, intubated during the CPR Plan: Neuro: Comatose. Polysubstance abuse. No induced hypothermia secondary to hemodynamic instability. Persistent encephalopathy 10 days after cardiac arrest with minimal improvement. MRI with abnormalities in internal capsule, likely anoxic. Evaluated by neurology and likely has only very slight chances for meaningful recovery. Cardiac: PEA out of hospital cardiac arrest with unclear down time. NSTEMI resolved. Pulmonary: Acute respiratory failure, intubated during the CPR. Continue to titrate off ventilatory support as tolerated. Renal: Acute renal failure secondary to cardiac arrest. Oliguric. Likely ischemic ATN. Now hemodialysis dependent. Nephrology service care appreciated. Continue to monitor renal indices and urine output. Endo: No acute issues. GI: Ischemic hepatitis after cardiac arrest, resolved. ID: Enterobacter in sputum, continue Levaquin for 14 days. Heme/Onc: No acute issues. Psych: No acute issues. Miscellaneous: Family is considering goals of care. Prophylaxis: Pneumatic compression, famotidine Diet: Tube feeds Critical care time spent: 45 minutes Quality Stroke Does the patient have a stroke diagnosis?: No VTE Prior VTE?: No VTE Risk Level:: Medical - moderate - high VTE Device Contraindication: N/A - Device Ordered VTE Drug Contraindication: N/A - Med Ordered
[2023-01-01 18:04] LABS: HIT-Patient Optical Density 0.081 OD UNITS; Heparin Induced Plt Ab Negative (Negative)
[2023-01-01] MEDS: Midazolam HCl/PF 2 MG/2 ML VIAL IVPUSH (20:31)
[2023-01-02] VITALS (35 sets, daily range): BP systolic 104–163; BP diastolic 56–89; PULSE 74–99; RESP 16–37; TEMP 34.5–37.6; O2SAT 92–100; BMI 25.5
[2023-01-02] MEDS: Midazolam HCl/PF 2 MG/2 ML VIAL IVPUSH (02:54)
[2023-01-02] MEDS: propofoL 1,000 MG/100 ML VIAL 15.93 MG IVCONT ×4 (02:55→19:52)
[2023-01-02] MEDS: levETIRAcetam in NaCl (iso-os) 1,000 MG/100 ML PIGGYBACK 400 MG IV ×2 (02:58→15:47)
[2023-01-02] MEDS: fentaNYL citrate/PF 100 MCG/2 ML VIAL IVPUSH (03:13)
[2023-01-02] MEDS: Cisatracurium Besylate 20 MG/10 ML VIAL 10 MG IVPUSH (03:20)
[2023-01-02] MEDS: Albuterol Sulfate (0.083%) 2.5 MG/3 ML VIAL.NEB INHALE (03:48)
[2023-01-02] MEDS: Cisatracurium Besylate 100 MG in 0.9 % Sodium Chloride 40 ML 5.38 MG IVCONT (03:51)
--- NOTE | 2023-01-02 05:01 | PC.NURSE ---
CARE ASSUMED 23:15...REMAINS TUBED/VENTED...VCV VENT SUPPORT....UNRESPONSIVE...INITIALLY NO SEDATION...EXTREMETIES FLACCID...(+) GAG/COUGH...OPENS EYES AT TIMES BUT NO TRACKING..DOES NOT FOLLOW ANY COMMANDS....RR 28-32 ON AC VENT SETTINGS.....3AM-4AM MARKED VENT DYSYNCHRONY...RR 36-42..ELEVATED PEAK AIRWAY PRESSURES...SUCTIONED SMALL AMOUNT THICK CREAM SECRETIONS VIA ETT W/O EFFECT...VERSED 2MG IV X1 PER ICU ENVIRONMENTAL TECHNOLOGY PROFESSOR W/O EFFECT....UPDRAFT GIVEN BY RT...REMAINED MARKED VENT DYSYNCHRONY--ELEVATED RR.....FORCEFUL COUGH...PROPOFOL DRIP STARTED 30 MCG/KG/MIN AND TITRATED TO 50 MCG/KG/MIN W/O EFFECT....NIMBEX 10MG IV X1 PER ICU ENVIRONMENTAL TECHNOLOGY PROFESSOR...TRANSIENT VENT SYNCHRONY OBTAINED FOR 5-10 THEN RETURN OF VENT DYSYNCHRONY...NIMBEX DRIP 2 MCG/KG/MIN STARTED WITH RETURN OF VENT SYNCHRONY...RR CONTROLLED AT 16/M...DECREASED PEAK PRESSURES TO 32CM.....PREVIOUSLY VOIDED SMALL/SCANT AMOUNT URINE VIA [place] EXTERNAL CATHETER...BLADDER SCANNED FOR 17ML...TUBE FEEDS HELD D/T PARALYTIC DRIP
[2023-01-02 05:05] LABS: VBG Base Excess -8.5 mmol/L; VBG HCO3 17 mmol/L (22-26); VBG pCO2 34 mmHg; VBG pH 7.29 (7.32-7.43); VBG pO2 83 mmHg
[2023-01-02 05:09] LABS: Basophils Absolute Auto 0.2 X10*3/uL (0.0-0.2); Basophils Percent Auto 0.8 % (0-2); Eosinophils Absolute Auto 0.4 X10*3/uL (0.0-0.4); Eosinophils Percent Auto 1.7 % (0-4); Hematocrit 31.3 % (42.0-52.0); Hemoglobin 10.9 g/dl (14.0-18.0); Imm Gran Abs Auto 0.23 X10*3/uL (0.00-0.03); Imm Gran Pct Auto 1.1 % (0.0-0.4); Lymphocytes Absolute Auto 1.5 X10*3/uL (1.2-4.9); Lymphocytes Percent Auto 7.4 % (20-40); MANUAL DIFF FLAG SCAN; Mean Corpuscular HGB Conc 34.8 g/dl (31.0-36.0); Mean Corpuscular Volume 97.5 fL (80.0-98.0); Mean Platelet Volume 11.5 fL (9.4-12.4); Monocytes Absolute Auto 1.6 X10*3/uL (0.1-1.2); Monocytes Percent Auto 7.5 % (2-11); Neutrophils Absolute Auto 16.9 x10*3/uL (2.0-8.3); Neutrophils Percent Auto 81.5 % (45-73); Platelet Count 185 X10*3/uL (160-400); Red Blood Count 3.21 X10*6/uL (4.60-5.80); Red Cell Distribution Width 14.5 % (11.0-16.0); SCAN SMEAR FLAG 1; White Blood Count 20.8 X10*3/uL (4.8-10.8)
[2023-01-02] MEDS: propofoL 1,000 MG/100 ML VIAL 26.55 MG IVCONT (05:27)
[2023-01-02 05:28] LABS: SLIDE REVIEW VERIFIED
[2023-01-02 05:29] LABS: Venous Blood Gas Refer to POC result
[2023-01-02 05:40] LABS: Anion Gap 25 (12-20)
[2023-01-02 05:56] LABS: Albumin Level 3.4 g/dL (3.5-5.0); Blood Urea Nitrogen 90 mg/dL (9-16); Calcium 8.4 mg/dL (8.4-10.2); Carbon Dioxide 16 mmol/L (22-29); Chloride 97 mmol/L (96-108); Glucose Random 101 mg/dL (60-115); Magnesium 2.8 mg/dL (1.6-2.6); Phosphorus 12.1 mg/dL (2.7-4.5); Potassium 4.5 mmol/L (3.3-5.1); Sodium 133 mmol/L (135-145)
[2023-01-02 05:57] LABS: Creatinine Clr Calc Pharmacy 10.4; Estimated Glomerular Filt Rate 6
[2023-01-02] MEDS: Famotidine/PF 20 MG/2 ML VIAL IVPUSH (07:51)
[2023-01-02] MEDS: Chlorhexidine Gluc Oral Rinse 15 ML MOUTHWASH BUCCAL ×3 (07:51→19:52)
--- NOTE | 2023-01-02 11:43 | P.PNCC_ITS ---
Subjective Subjective Date of Service: 01/02/23 Interval History: 52-year-old gentleman with unclear past medical history admitted on 12/21/2022 with out of hospital PEA cardiac arrest with unclear down time with returned spontaneous circulation on arrival to emergency room, intubated during the CPR and transferred to intensive care unit. Patient with profound metabolic lactic acidosis, ischemic hepatitis, and acute renal failure requiring high dose vasopressor support. Hospital course significant for improvement in ischemic hepatitis and pressor requirements, but development of hemodialysis dependence and persistent encephalopathy with minimal improvement.[facility] brain with signif icant anoxic injury. Evaluated by neurology and deemed to have very slim chances of meaningful recovery. No events overnight. Critical Care Time (minutes): 30 Physical Exam Vital Signs: Vital Signs: Last Vital Signs Temp 98.1 F 01/02/23 11:00 Pulse 80 01/02/23 11:00 Resp 26 H 01/02/23 11:00 BP 118/69 01/02/23 11:00 Pulse Ox 97 01/02/23 11:00 O2 Del Method 01/02/23 11:00 O2 Flow Rate 35 12/26/22 06:00 FiO2 25 01/02/23 11:00 BMI result Body Mass Index 25.5 Const: General: no acute distress Eyes: Sclerae: sclerae normal Pupils: Equal, round and reactive pupils present Neck: Neck: Yes no lymphadenopathy, Yes trachea midline and Yes supple Resp: Auscultation: clear to auscultation bilaterally Cardio: Rate: regular rate Rhythm: regular rhythm Heart sounds: no gallops, no murmurs and no rubs GI: Palpation (GI): Soft to palpation and Other GI palpation findings present ( Nontender) Auscultation: normal bowel sounds Neuro: Cranial nerves: Yes Equal, round and reactive pupils present Extrem: General: Yes no pedal edema, No clubbing and No cyanosis Objective Data Labs 01/02/23 04:55 01/02/23 04:55 Labs: Laboratory Results - last 24 hr 12/27/22 01/02/23 01/02/23 06:13 04:55 04:55 WBC 20.8 H RBC 3.21 L Hgb 10.9 L Hct 31.3 L MCV 97.5 MCH 34.0 H MCHC 34.8 RDW 14.5 Plt Count 185 MPV 11.5 Immature Gran % (Auto) 1.1 H Neut % (Auto) 81.5 H Lymph % (Auto) 7.[address] [place] % (Auto) 7.5 Eos % (Auto) 1.7 Baso % (Auto) 0.8 Lymph # (Auto) 1.5 [place] # (Auto) 1.6 H Eos # (Auto) 0.4 Baso # (Auto) 0.2 Abs Immat Gran (auto) 0.23 H Absolute Neuts (auto) 16.9 H Absolute Nucleated RBC 0.000 Nucleated RBC % (auto) 0.0 Smear Tech's Comments VERIFIED VBG pH VBG pCO2 VBG pO2 VBG HCO3 VBG O2 Saturation VBG Base Excess Sodium 133 L Potassium 4.5 Chloride 97 Carbon Dioxide 16 L Anion Gap 25 H BUN 90 H Creatinine 9.28 H* Estim Creat Clear Calc 10.4 Estimated GFR 6 Random Glucose 101 Calcium 8.4 D Phosphorus 12.1 H Magnesium 2.8 H Albumin 3.4 L Heparin Dep Plt Ab OD 0.081 Hep-Induced Plt Ab Radha Negative 01/02/23 04:57 WBC RBC Hgb Hct MCV MCH MCHC RDW Plt Count MPV Immature Gran % (Auto) Neut % (Auto) Lymph % (Auto) [place] % (Auto) Eos % (Auto) Baso % (Auto) Lymph # (Auto) [place] # (Auto) Eos # (Auto) Baso # (Auto) Abs Immat Gran (auto) Absolute Neuts (auto) Absolute Nucleated RBC Nucleated RBC % (auto) Smear Tech's Comments VBG pH 7.29 L VBG pCO2 34 VBG pO2 83 VBG HCO3 17 L VBG O2 Saturation 93.0 VBG Base Excess -8.5 Sodium Potassium Chloride Carbon Dioxide Anion Gap BUN Creatinine Estim Creat Clear Calc Estimated GFR Random Glucose Calcium Phosphorus Magnesium Albumin Heparin Dep Plt Ab OD Hep-Induced Plt Ab Radha Microbiology Microbiology Results: Microbiology 12/25/22 09:54 Blood - Venous Blood Culture - Final No growth after 5 days. 12/25/22 09:58 Blood - Venous Blood Culture - Final No growth after 5 days. 12/26/22 08:44 Sputum - Suctioned Gram Stain - Final 12/26/22 08:44 Sputum - Suctioned Sputum Culture - Final Enterobacter aerogenes 12/21/22 Unknown Urine Catheterized - Giron Catheter Urine Culture - Final No growth. Progress Note: A&P Assessment and plan (1) Polysubstance abuse: Status: Acute (2) Cardiac arrest: Status: Acute (3) Encephalopathy: Status: Acute (4) Acute respiratory failure: Status: Acute Plan Assessment: 52-year-old gentleman admitted with PEA out of hospital cardiac arrest with unclear down time with returned spontaneous circulation upon arrival to emergency room, intubated during the CPR Plan: Neuro: Polysubstance abuse. Persistent encephalopathy 11 days after cardiac arrest with minimal improvement. MRI with abnormalities in internal capsule, likely anoxic. Evaluated by neurology and likely has only very slight chances for meaningful recovery. Cardiac: PEA out of hospital cardiac arrest with unclear down time. NSTEMI resolved. Pulmonary: Acute respiratory failure, intubated during the CPR. Continue to titrate off ventilatory support as tolerated. Renal: Acute renal failure secondary to cardiac arrest. Oliguric. Likely ischemic ATN. Now hemodialysis dependent. Nephrology service care appreciated. Continue to monitor renal indices and urine output. Endo: No acute issues. GI: Ischemic hepatitis after cardiac arrest, resolved. ID: Enterobacter in sputum, continue Levaquin for 14 days. Heme/Onc: No acute issues. Psych: No acute issues. Miscellaneous: Family is considering goals of care. Prophylaxis: Pneumatic compression, famotidine Diet: Tube feeds Critical care time spent: 30 minutes Quality Stroke Does the patient have a stroke diagnosis?: No VTE Prior VTE?: No VTE Risk Level:: Medical - moderate - high VTE Device Contraindication: N/A - Device Ordered VTE Drug Contraindication: N/A - Med Ordered
--- NOTE | 2023-01-02 12:48 | MHC.CM.PN ---
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 Message left for pt's brother, Augie to discuss options should he decide for continued care (peg/trach). Included in the discussion will be barriers: LTAC availability, payor change to [facility] and need for guardianship. Will await callback.
--- NOTE | 2023-01-02 13:31 | PM.PNNEP ---
Subjective Subjective Date of Service: 01/02/23 Interval history: No events overnight. Physical Exam Vital Signs: Vital Signs: Last Vital Signs Temp 98.2 F 01/02/23 13:00 Pulse 76 01/02/23 13:00 Resp 30 H 01/02/23 13:00 BP 117/65 01/02/23 13:00 Pulse Ox 100 01/02/23 13:00 O2 Del Method 01/02/23 13:00 O2 Flow Rate 35 12/26/22 06:00 FiO2 25 01/02/23 13:00 BMI result Body Mass Index 25.5 Const: General: no acute distress Neck: Neck: Yes supple Resp: Auscultation: diminished lung sounds Cardio: Rate: regular rate GI: Palpation (GI): Soft to palpation Skin: General skin exam: no rashes or lesions noted Objective Data Labs 01/02/23 04:55 01/02/23 04:55 Labs: Laboratory Results - last 24 hr 12/27/22 01/02/23 01/02/23 06:13 04:55 04:55 WBC 20.8 H RBC 3.21 L Hgb 10.9 L Hct 31.3 L MCV 97.5 MCH 34.0 H MCHC 34.8 RDW 14.5 Plt Count 185 MPV 11.5 Immature Gran % (Auto) 1.1 H Neut % (Auto) 81.5 H Lymph % (Auto) 7.4 L [place] % (Auto) 7.5 Eos % (Auto) 1.7 Baso % (Auto) 0.8 Lymph # (Auto) 1.5 [place] # (Auto) 1.6 H Eos # (Auto) 0.4 Baso # (Auto) 0.2 Abs Immat Gran (auto) 0.23 H Absolute Neuts (auto) 16.9 H Absolute Nucleated RBC 0.000 Nucleated RBC % (auto) 0.0 Smear Tech's Comments VERIFIED VBG pH VBG pCO2 VBG pO2 VBG HCO3 VBG O2 Saturation VBG Base Excess Sodium 133 L Potassium 4.5 Chloride 97 Carbon Dioxide 16 L Anion Gap 25 H BUN 90 H Creatinine 9.28 H* Estim Creat Clear Calc 10.4 Estimated GFR 6 Random Glucose 101 Calcium 8.4 D Phosphorus 12.1 H Magnesium 2.8 H Albumin 3.4 L Heparin Dep Plt Ab OD 0.081 Hep-Induced Plt Ab Radha Negative 01/02/23 04:57 WBC RBC Hgb Hct MCV MCH MCHC RDW Plt Count MPV Immature Gran % (Auto) Neut % (Auto) Lymph % (Auto) [place] % (Auto) Eos % (Auto) Baso % (Auto) Lymph # (Auto) [place] # (Auto) Eos # (Auto) Baso # (Auto) Abs Immat Gran (auto) Absolute Neuts (auto) Absolute Nucleated RBC Nucleated RBC % (auto) Smear Tech's Comments VBG pH 7.29 L VBG pCO2 34 VBG pO2 83 VBG HCO3 17 L VBG O2 Saturation 93.0 VBG Base Excess -8.5 Sodium Potassium Chloride Carbon Dioxide Anion Gap BUN Creatinine Estim Creat Clear Calc Estimated GFR Random Glucose Calcium Phosphorus Magnesium Albumin Heparin Dep Plt Ab OD Hep-Induced Plt Ab Radha Microbiology Microbiology Results: Microbiology 12/25/22 09:54 Blood - Venous Blood Culture - Final No growth after 5 days. 12/25/22 09:58 Blood - Venous Blood Culture - Final No growth after 5 days. 12/26/22 08:44 Sputum - Suctioned Gram Stain - Final 12/26/22 08:44 Sputum - Suctioned Sputum Culture - Final Enterobacter aerogenes 12/21/22 Unknown Urine Catheterized - Giron Catheter Urine Culture - Final No growth. Procedures Date of Service Date of Service: 01/02/23 Assessment & Plan Assessment and plan (1) Acute renal failure: Status: Acute Assessment and Plan: VITA due to Ischemic ATN Remains on HD- Due tomorrow Continued vol optimization on HD C/W rest of current management Progress Note: Quality Stroke Does the patient have a stroke diagnosis?: No
[2023-01-02] MEDS: levoFLOXacin/D5W 500 MG/100 ML PIGGYBACK 100 MG IV (17:06)
[2023-01-02] MEDS: Lactated Ringers 1,000 ML 999 ML IV (18:25)
--- NOTE | 2023-01-02 18:33 | PC.NURSE ---
AT ROUGHLY 1815 RN AND CCT WENT TO REPOSITION PATIENT. A LARGE AMOUNT OF BLOOD WITH MULTIPLE LARGE CLOTS WAS NOTICED SATURATING PATIENT JOHN SHEET. MD MADE AWARE OVER TIGER CONNECT. PATIENT WAS TURNED TO CLEAN UP BLOOD A MODERATE AMOUNT OF MISAEL RED BLOOD WAS NOTICED LEAKING FROM RECTUM. BLOOD AND CLOTS WERE NOTICED TO BE LEAKING THROUGH RECTAL TUBE. MD CONTACTED VIA TELEPHONE AND VERBAL ORDERS WERE GIVEN TO RN TO PLACE MULTIPLE ORDERS. ORDERS INCLUDED: 1000ML LR BOLUS INFUSION, AND STAT PT/PTT/INR LABS. PATIENT REPOSITIONED Q2HR, ROUTINE ORAL CARE GIVEN, FAMILY UPDATED ON CURRENT HEALTH STATUS
[2023-01-02 19:14] LABS: Hematocrit 29.1 % (42.0-52.0); Hemoglobin 10.3 g/dl (14.0-18.0); Mean Corpuscular HGB Conc 35.4 g/dl (31.0-36.0); Mean Corpuscular Hemoglobin 34.3 pg (27.0-33.0); Mean Platelet Volume 11.8 fL (9.4-12.4); Platelet Count 205 X10*3/uL (160-400); Red Cell Distribution Width 14.4 % (11.0-16.0); White Blood Count 18.8 X10*3/uL (4.8-10.8)
[2023-01-02 19:21] LABS: INTERNATIONAL NORM RATIO 1.6 (0.9-1.1); Prothrombin Time 19.2 SEC (10.0-13.1)
[2023-01-03] VITALS (30 sets, daily range): BP systolic 101–155; BP diastolic 56–85; PULSE 74–98; RESP 25–33; TEMP 35.1–37.3; O2SAT 97–100; BMI 25.3
[2023-01-03] MEDS: propofoL 1,000 MG/100 ML VIAL 15.93 MG IVCONT ×3 (01:27→11:42)
[2023-01-03] MEDS: levETIRAcetam in NaCl (iso-os) 1,000 MG/100 ML PIGGYBACK 400 MG IV ×2 (02:54→14:36)
[2023-01-03 05:39] LABS: VBG Base Excess -9.4 mmol/L; VBG HCO3 14 mmol/L (22-26); VBG pCO2 26 mmHg; VBG pH 7.34 (7.32-7.43); VBG pO2 51 mmHg
[2023-01-03 05:43] LABS: MANUAL DIFF FLAG NO
[2023-01-03 05:52] LABS: Basophils Absolute Auto 0.2 X10*3/uL (0.0-0.2); Eosinophils Absolute Auto 0.3 X10*3/uL (0.0-0.4); Eosinophils Percent Auto 1.9 % (0-4); Hematocrit 28.1 % (42.0-52.0); Hemoglobin 9.9 g/dl (14.0-18.0); Imm Gran Abs Auto 0.16 X10*3/uL (0.00-0.03); Mean Corpuscular HGB Conc 35.2 g/dl (31.0-36.0); Mean Corpuscular Hemoglobin 34.1 pg (27.0-33.0); Mean Corpuscular Volume 96.9 fL (80.0-98.0); Mean Platelet Volume 11.5 fL (9.4-12.4); Monocytes Absolute Auto 1.4 X10*3/uL (0.1-1.2); Monocytes Percent Auto 8.7 % (2-11); Neutrophils Absolute Auto 11.7 x10*3/uL (2.0-8.3); Neutrophils Percent Auto 74.4 % (45-73); Platelet Count 204 X10*3/uL (160-400); Red Cell Distribution Width 14.4 % (11.0-16.0); White Blood Count 15.7 X10*3/uL (4.8-10.8)
[2023-01-03 06:02] LABS: Venous Blood Gas Refer to POC result
[2023-01-03 06:03] LABS: Albumin Level 2.9 g/dL (3.5-5.0); Anion Gap 29 (12-20); Blood Urea Nitrogen 125 mg/dL (9-16); Calcium 7.7 mg/dL (8.4-10.2); Carbon Dioxide 13 mmol/L (22-29); Chloride 96 mmol/L (96-108); Creatinine Clr Calc Pharmacy 8.7; Estimated Glomerular Filt Rate 5; Glucose Random 101 mg/dL (60-115); Magnesium 2.8 mg/dL (1.6-2.6); Phosphorus 14.8 mg/dL (2.7-4.5); Sodium 133 mmol/L (135-145)
[2023-01-03] MEDS: Pantoprazole Sodium 40 MG/10 ML VIAL IVPUSH ×2 (06:15→14:36)
[2023-01-03] MEDS: Chlorhexidine Gluc Oral Rinse 15 ML MOUTHWASH BUCCAL ×3 (09:02→20:54)
--- NOTE | 2023-01-03 10:10 | PM.CCPN ---
Subjective Subjective Date of Service: 01/03/23 Interval History: 52-year-old gentleman with unclear past medical history admitted on 12/21/2022 with out of hospital PEA cardiac arrest with unclear down time with returned spontaneous circulation on arrival to emergency room, intubated during the CPR and transferred to intensive care unit. Patient with profound metabolic lactic acidosis, ischemic hepatitis, and acute renal failure requiring high dose vasopressor support. Hospital course significant for improvement in ischemic hepatitis and pressor requirements, but development of hemodialysis dependence and persistent encephalopathy with minimal improvement.[facility] brain with significant anoxic injury. Evaluated by neurology and deemed to have very slim chances of meaningful recovery. Overnight with an episode of clots per rectum with no change in hemodynamics of significant change in hemoglobin. No recurrence. Critical Care Time (minutes): 45 Physical Exam Vital Signs: Vital Signs: Last Vital Signs Temp 98.6 F 01/03/23 09:00 Pulse 91 01/03/23 09:00 Resp 31 H 01/03/23 09:00 BP 144/75 H 01/03/23 09:00 Pulse Ox 98 01/03/23 09:00 O2 Del Method 01/03/23 09:00 O2 Flow Rate 35 12/26/22 06:00 FiO2 25 01/03/23 09:00 BMI result Body Mass Index 25.3 Const: General: no acute distress Eyes: Sclerae: sclerae normal Pupils: Equal, round and reactive pupils present Neck: Neck: Yes no lymphadenopathy, Yes trachea midline and Yes supple Resp: Effort & Inspection: normal respiratory effort and no respiratory distress Auscultation: clear to auscultation bilaterally Cardio: Rate: regular rate Rhythm: regular rhythm Heart sounds: no gallops, no murmurs and no rubs GI: Palpation (GI): Soft to palpation and Other GI palpation findings present ( Nontender) Auscultation: normal bowel sounds Neuro: Cranial nerves: Yes Equal, round and reactive pupils present Extrem: General: Yes no pedal edema, No clubbing and No cyanosis Objective Data Labs 01/03/23 05:34 01/03/23 05:34 Labs: Laboratory Results - last 24 hr 01/02/23 01/02/23 01/03/23 18:40 18:41 05:32 WBC 18.8 H RBC 3.00 L Hgb 10.3 L Hct 29.1 L MCV 97.0 MCH 34.3 H MCHC 35.4 RDW 14.4 Plt Count 205 MPV 11.8 Immature Gran % (Auto) Neut % (Auto) Lymph % (Auto) [place] % (Auto) Eos % (Auto) Baso % (Auto) Lymph # (Auto) [place] # (Auto) Eos # (Auto) Baso # (Auto) Abs Immat Gran (auto) Absolute Neuts (auto) Absolute Nucleated RBC 0.000 Nucleated RBC % (auto) 0.0 PT 19.2 H INR 1.6 H VBG pH 7.34 VBG pCO2 26 VBG pO2 51 VBG HCO3 14 L VBG O2 Saturation 74.0 VBG Base Excess -9.4 Sodium Potassium Chloride Carbon Dioxide Anion Gap BUN Creatinine Estim Creat Clear Calc Estimated GFR Random Glucose Calcium Phosphorus Magnesium Albumin 01/03/23 01/03/23 05:34 05:34 WBC 15.7 H RBC 2.90 L Hgb 9.9 L Hct 28.1 L MCV 96.9 MCH 34.1 H MCHC 35.2 RDW 14.4 Plt Count 204 MPV 11.5 Immature Gran % (Auto) 1.0 H Neut % (Auto) 74.4 H Lymph % (Auto) 13.0 L [place] % (Auto) 8.7 Eos % (Auto) 1.9 Baso % (Auto) 1.0 Lymph # (Auto) 2.0 [place] # (Auto) 1.4 H Eos # (Auto) 0.3 Baso # (Auto) 0.2 Abs Immat Gran (auto) 0.16 H Absolute Neuts (auto) 11.7 H Absolute Nucleated RBC 0.000 Nucleated RBC % (auto) 0.0 PT INR VBG pH VBG pCO2 VBG pO2 VBG HCO3 VBG O2 Saturation VBG Base Excess Sodium 133 L Potassium 5.0 Chloride 96 Carbon Dioxide 13 L Anion Gap 29 H BUN 125 H Creatinine 11.12 H* Estim Creat Clear Calc 8.7 Estimated GFR 5 Random Glucose 101 Calcium 7.7 L D Phosphorus 14.8 H Magnesium 2.8 H Albumin 2.9 L Microbiology Microbiology Results: Microbiology 12/25/22 09:54 Blood - Venous Blood Culture - Final No growth after 5 days. 12/25/22 09:58 Blood - Venous Blood Culture - Final No growth after 5 days. 12/26/22 08:44 Sputum - Suctioned Gram Stain - Final 12/26/22 08:44 Sputum - Suctioned Sputum Culture - Final Enterobacter aerogenes 12/21/22 Unknown Urine Catheterized - Giron Catheter Urine Culture - Final No growth. Progress Note: A&P Assessment and plan (1) Cardiac arrest: Status: Acute (2) Polysubstance abuse: Status: Acute (3) Acute respiratory failure: Status: Acute (4) Anoxic brain injury: Status: Acute Plan Assessment: 52-year-old gentleman admitted with PEA out of hospital cardiac arrest with unclear down time with returned spontaneous circulation upon arrival to emergency room, intubated during the CPR Plan: Neuro: Polysubstance abuse. Persistent encephalopathy 13 days after cardiac arrest with minimal improvement. Anoxic brain injury on MRI. Evaluated by neurology and likely has only very slight chances for meaningful recovery. Cardiac: PEA out of hospital cardiac arrest with unclear down time. NSTEMI resolved. Pulmonary: Acute respiratory failure, intubated during the CPR. Continue to titrate off ventilatory support as tolerated. Renal: Acute renal failure secondary to cardiac arrest. Oliguric. Likely ischemic ATN. Now hemodialysis dependent. Nephrology service care appreciated. Continue to monitor renal indices and urine output. Endo: No acute issues. GI: Ischemic hepatitis after cardiac arrest, resolved. Episode of passing clots per rectum, likely delayed stress gastritis on the background of anoxic injury and uremia. Hemoglobin is stable. ID: Enterobacter in sputum, continue Levaquin for 14 days. Heme/Onc: No acute issues. Psych: No acute issues. Miscellaneous: Family is considering goals of care. Prophylaxis: Pneumatic compression, famotidine Diet: Tube feeds Critical care time spent: 45 minutes Quality Stroke Does the patient have a stroke diagnosis?: No VTE Prior VTE?: No VTE Risk Level:: Medical - moderate - high VTE Device Contraindication: N/A - Device Ordered VTE Drug Contraindication: N/A - Med Ordered
--- NOTE | 2023-01-03 10:23 | MHC.CLN ---
F/U INTUBATED AND SEDATED. RECEIVING HEMODIALYSIS. TOLERATING TUBE FEEDING. RD RECOMMENDS DECREASE TO TF RATE. CHANGE TO NEPRO TO MAX GOAL RATE 40 ML PER HOUR. FREE WATER FLUSH 240 ML Q 4 HOURS. TUBE FEEDING PROVIDES: 1728 KCALS, 2149 KCALS WITH SEDATION (26.5 KCALS/KG IBW); 78 G PROTEIN (.96 G/KG IBW); FREE WATER FROM FORMULA 698 ML PLUS FLUSH 1440 WP=[id number] ML (26.4 ML/KG IBW). SKIN WITH REDNESS TO BUTTOCKS. FOLLOW FOR TUBE FEED TOLERANCE AND LABS. CONTINUE TO FOLLOW PLAN OF CARE WITH TEAM.
--- NOTE | 2023-01-03 11:01 | P.PNNP_ITS ---
Subjective Subjective Date of Service: 01/03/23 Interval history: Overnight had an episode of clots per rectum with no change in hemodynamics of significant change in hemoglobin. No recurrence. Seen on HD this AM Physical Exam Vital Signs: Vital Signs: Last Vital Signs Temp 98.8 F 01/03/23 10:00 Pulse 95 01/03/23 10:00 Resp 32 H 01/03/23 10:00 BP 151/81 H 01/03/23 10:00 Pulse Ox 97 01/03/23 10:00 O2 Del Method 01/03/23 10:00 O2 Flow Rate 35 12/26/22 06:00 FiO2 25 01/03/23 10:00 BMI result Body Mass Index 25.3 Const: General: no acute distress Neck: Neck: Yes supple Resp: Auscultation: diminished lung sounds Cardio: Rate: regular rate GI: Palpation (GI): Soft to palpation Skin: General skin exam: no rashes or lesions noted Objective Data Labs 01/03/23 05:34 01/03/23 05:34 Labs: Laboratory Results - last 24 hr 01/02/23 01/02/23 01/03/23 18:40 18:41 05:32 WBC 18.8 H RBC 3.00 L Hgb 10.3 L Hct 29.1 L MCV 97.0 MCH 34.3 H MCHC 35.4 RDW 14.4 Plt Count 205 MPV 11.8 Immature Gran % (Auto) Neut % (Auto) Lymph % (Auto) [place] % (Auto) Eos % (Auto) Baso % (Auto) Lymph # (Auto) [place] # (Auto) Eos # (Auto) Baso # (Auto) Abs Immat Gran (auto) Absolute Neuts (auto) Absolute Nucleated RBC 0.000 Nucleated RBC % (auto) 0.0 PT 19.2 H INR 1.6 H VBG pH 7.34 VBG pCO2 26 VBG pO2 51 VBG HCO3 14 L VBG O2 Saturation 74.0 VBG Base Excess -9.4 Sodium Potassium Chloride Carbon Dioxide Anion Gap BUN Creatinine Estim Creat Clear Calc Estimated GFR Random Glucose Calcium Phosphorus Magnesium Albumin 01/03/23 01/03/23 05:34 05:34 WBC 15.7 H RBC 2.90 L Hgb 9.9 L Hct 28.1 L MCV 96.9 MCH 34.1 H MCHC 35.2 RDW 14.4 Plt Count 204 MPV 11.5 Immature Gran % (Auto) 1.0 H Neut % (Auto) 74.4 H Lymph % (Auto) 13.0 L [place] % (Auto) 8.7 Eos % (Auto) 1.9 Baso % (Auto) 1.0 Lymph # (Auto) 2.0 [place] # (Auto) 1.4 H Eos # (Auto) 0.3 Baso # (Auto) 0.2 Abs Immat Gran (auto) 0.16 H Absolute Neuts (auto) 11.7 H Absolute Nucleated RBC 0.000 Nucleated RBC % (auto) 0.0 PT INR VBG pH VBG pCO2 VBG pO2 VBG HCO3 VBG O2 Saturation VBG Base Excess Sodium 133 L Potassium 5.0 Chloride 96 Carbon Dioxide 13 L Anion Gap 29 H BUN 125 H Creatinine 11.12 H* Estim Creat Clear Calc 8.7 Estimated GFR 5 Random Glucose 101 Calcium 7.7 L D Phosphorus 14.8 H Magnesium 2.8 H Albumin 2.9 L Microbiology Microbiology Results: Microbiology 12/25/22 09:54 Blood - Venous Blood Culture - Final No growth after 5 days. 12/25/22 09:58 Blood - Venous Blood Culture - Final No growth after 5 days. 12/26/22 08:44 Sputum - Suctioned Gram Stain - Final 12/26/22 08:44 Sputum - Suctioned Sputum Culture - Final Enterobacter aerogenes 12/21/22 Unknown Urine Catheterized - Giron Catheter Urine Culture - Final No growth. Procedures Date of Service Date of Service: 01/03/23 Assessment & Plan Assessment and plan (1) Acute renal failure: Status: Acute Assessment and Plan: VITA due to Ischemic ATN Remains on HD- Seen on HD Continued vol optimization on HD Hemodynamics stable on HD C/W rest of current management Progress Note: Quality Stroke Does the patient have a stroke diagnosis?: No
--- NOTE | 2023-01-03 14:41 | P.CDIM_ITS ---
PROVIDER RESPONSE TEXT: To clarify, the appropriate diagnosis supported by the clinical indicators: Other (explain): resolved QUERY TEXT: PHYSICIAN'S DOCUMENTATION REQUEST Date of Query: 01/03/2023 11:53 AM EDT Patient Name: Gene Arnett Admit Date: 12/21/2022 Dear Keith Puckett, A review of the medical record indicates additional documentation may be needed. Please review below and update the documentation accordingly. Clinical Indicators: Per MD progress note 01/03/23: Patient with profound metabolic lactic acidosis Clarify which of the following accurately represents the acuity of the Metabolic lactic acidosis Possible options might include: Acute Acute on chronic Compensated Chronic stable condition Other (explain) Clinically unable to determine (explain) Thank you, Halle Gonzalez RN Use of terms such as suspected, likely, concern for, or probable (associated with a specific diagnosi s that is being evaluated, monitored, or treated as if it exists) are acceptable and can be coded in the inpatient se tting, when documented at the time of discharge. Please use your independent medical judgment in providing your response. THIS QUERY IS PART OF THE PERMANENT MEDICAL RECORD
[2023-01-03] MEDS: propofoL 1,000 MG/100 ML VIAL 5.31 MG IVCONT (17:38)
[2023-01-04] VITALS (30 sets, daily range): BP systolic 120–163; BP diastolic 59–93; PULSE 25–102; RESP 22–30; TEMP 35–37.4; O2SAT 8–100; BMI 25.5
[2023-01-04] MEDS: levETIRAcetam in NaCl (iso-os) 1,000 MG/100 ML PIGGYBACK 400 MG IV ×2 (02:30→16:45)
[2023-01-04] MEDS: Pantoprazole Sodium 40 MG/10 ML VIAL IVPUSH ×2 (05:19→16:45)
[2023-01-04] MEDS: propofoL 1,000 MG/100 ML VIAL 5.31 MG IVCONT ×2 (05:19→19:46)
[2023-01-04 05:22] LABS: VBG Base Excess -8.6 mmol/L; VBG HCO3 14 mmol/L (22-26); VBG pCO2 23 mmHg; VBG pO2 98 mmHg
[2023-01-04 05:24] LABS: Venous Blood Gas Refer to POC result
[2023-01-04 05:39] LABS: MANUAL DIFF FLAG NO
[2023-01-04 05:42] LABS: Basophils Absolute Auto 0.2 X10*3/uL (0.0-0.2); Basophils Percent Auto 1.3 % (0-2); Eosinophils Absolute Auto 0.4 X10*3/uL (0.0-0.4); Eosinophils Percent Auto 2.8 % (0-4); Hemoglobin 9.3 g/dl (14.0-18.0); Imm Gran Abs Auto 0.15 X10*3/uL (0.00-0.03); Imm Gran Pct Auto 1.2 % (0.0-0.4); Lymphocytes Absolute Auto 1.6 X10*3/uL (1.2-4.9); Lymphocytes Percent Auto 12.7 % (20-40); Mean Corpuscular HGB Conc 35.8 g/dl (31.0-36.0); Mean Corpuscular Hemoglobin 34.4 pg (27.0-33.0); Mean Corpuscular Volume 96.3 fL (80.0-98.0); Mean Platelet Volume 11.3 fL (9.4-12.4); Monocytes Absolute Auto 1.4 X10*3/uL (0.1-1.2); Monocytes Percent Auto 10.7 % (2-11); Neutrophils Absolute Auto 9.1 x10*3/uL (2.0-8.3); Neutrophils Percent Auto 71.3 % (45-73); Platelet Count 185 X10*3/uL (160-400); Red Cell Distribution Width 14.5 % (11.0-16.0); White Blood Count 12.7 X10*3/uL (4.8-10.8)
[2023-01-04 06:01] LABS: Anion Gap 23 (12-20); Blood Urea Nitrogen 90 mg/dL (9-16); Calcium 8.1 mg/dL (8.4-10.2); Carbon Dioxide 14 mmol/L (22-29); Chloride 96 mmol/L (96-108); Creatinine Clr Calc Pharmacy 12.4; Estimated Glomerular Filt Rate 7; Glucose Random 96 mg/dL (60-115); Magnesium 2.7 mg/dL (1.6-2.6); Phosphorus 11.4 mg/dL (2.7-4.5); Potassium 4.5 mmol/L (3.3-5.1); Sodium 128 mmol/L (135-145)
--- NOTE | 2023-01-04 08:43 | PM.PNNEP ---
Subjective Subjective Date of Service: 01/04/23 Interval history: Seen this AM. Events noted. All recent data reviewed Physical Exam Vital Signs: Vital Signs: Last Vital Signs Temp 97.7 F 01/04/23 08:00 Pulse 73 01/04/23 08:00 Resp 25 H 01/04/23 08:00 BP 123/66 01/04/23 08:00 Pulse Ox 98 01/04/23 08:00 O2 Del Method 01/04/23 08:00 O2 Flow Rate 98 01/04/23 07:00 FiO2 25 01/04/23 08:32 BMI result Body Mass Index 25.5 Const: General: no acute distress Resp: Auscultation: diminished lung sounds Cardio: Rate: regular rate GI: Palpation (GI): Soft to palpation Neuro: Other: Intubated Objective Data Labs 01/04/23 05:09 01/04/23 05:09 Labs: Laboratory Results - last 24 hr 12/27/22 01/04/23 01/04/23 06:13 05:09 05:09 WBC 12.7 H RBC 2.70 L Hgb 9.3 L Hct 26.0 L MCV 96.3 MCH 34.4 H MCHC 35.8 RDW 14.5 Plt Count 185 MPV 11.3 Immature Gran % (Auto) 1.2 H Neut % (Auto) 71.3 Lymph % (Auto) 12.7 L [place] % (Auto) 10.7 Eos % (Auto) 2.8 Baso % (Auto) 1.3 Lymph # (Auto) 1.6 [place] # (Auto) 1.4 H Eos # (Auto) 0.4 Baso # (Auto) 0.2 Abs Immat Gran (auto) 0.15 H Absolute Neuts (auto) 9.1 H Absolute Nucleated RBC 0.000 Nucleated RBC % (auto) 0.0 Hep-Ind Thrombocytop Com TNP VBG pH VBG pCO2 VBG pO2 VBG HCO3 VBG O2 Saturation VBG Base Excess Sodium 128 L Potassium 4.5 Chloride 96 Carbon Dioxide 14 L Anion Gap 23 H BUN 90 H Creatinine 7.82 H* Estim Creat Clear Calc 12.4 Estimated GFR 7 Random Glucose 96 Calcium 8.1 L Phosphorus 11.4 H Magnesium 2.7 H Albumin 3.0 L 01/04/23 05:15 WBC RBC Hgb Hct MCV MCH MCHC RDW Plt Count MPV Immature Gran % (Auto) Neut % (Auto) Lymph % (Auto) [place] % (Auto) Eos % (Auto) Baso % (Auto) Lymph # (Auto) [place] # (Auto) Eos # (Auto) Baso # (Auto) Abs Immat Gran (auto) Absolute Neuts (auto) Absolute Nucleated RBC Nucleated RBC % (auto) Hep-Ind Thrombocytop Com VBG pH 7.40 VBG pCO2 23 VBG pO2 98 VBG HCO3 14 L VBG O2 Saturation 97.0 VBG Base Excess -8.6 Sodium Potassium Chloride Carbon Dioxide Anion Gap BUN Creatinine Estim Creat Clear Calc Estimated GFR Random Glucose Calcium Phosphorus Magnesium Albumin Microbiology Microbiology Results: Microbiology 12/25/22 09:54 Blood - Venous Blood Culture - Final No growth after 5 days. 12/25/22 09:58 Blood - Venous Blood Culture - Final No growth after 5 days. 12/26/22 08:44 Sputum - Suctioned Gram Stain - Final 12/26/22 08:44 Sputum - Suctioned Sputum Culture - Final Enterobacter aerogenes 12/21/22 Unknown Urine Catheterized - Giron Catheter Urine Culture - Final No growth. Procedures Date of Service Date of Service: 01/04/23 Assessment & Plan Assessment and plan (1) Acute renal failure: Status: Acute Assessment and Plan: VITA due to Ischemic ATN Remains on HD- Shall dialyze gain today Acidotic- Will increase bicarb on HD Continued vol optimization on HD Needs F/U blood gas if continues to be acidotic post HD C/W rest of current management Progress Note: Quality Stroke Does the patient have a stroke diagnosis?: No
--- NOTE | 2023-01-04 10:15 | PM.CCPN ---
Subjective Subjective Date of Service: 01/04/23 Interval History: 52-year-old gentleman with unclear past medical history admitted on 12/21/2022 with out of hospital PEA cardiac arrest with unclear down time with returned spontaneous circulation on arrival to emergency room, intubated during the CPR and transferred to intensive care unit. Patient with profound metabolic lactic acidosis, ischemic hepatitis, and acute renal failure requiring high dose vasopressor support. Hospital course significant for improvement in ischemic hepatitis and pressor requirements, but development of hemodialysis dependence and persistent encephalopathy with minimal improvement.[facility] brain with significant anoxic injury. Evaluated by neurology and deemed to have very slim chances of meaningful recovery. No events overnight. Critical Care Time (minutes): 45 Physical Exam Vital Signs: Vital Signs: Last Vital Signs Temp 98.2 F 01/04/23 09:00 Pulse 73 01/04/23 08:00 Resp 27 H 01/04/23 09:00 BP 139/74 01/04/23 09:00 Pulse Ox 99 01/04/23 09:00 O2 Del Method 01/04/23 09:00 O2 Flow Rate 98 01/04/23 07:00 FiO2 25 01/04/23 09:00 BMI result Body Mass Index 25.5 Const: General: no acute distress and other ( unresponsive) Eyes: Sclerae: sclerae normal Pupils: Equal, round and reactive pupils present Neck: Neck: Yes no lymphadenopathy, Yes trachea midline and Yes supple Resp: Effort & Inspection: normal respiratory effort and no respiratory distress Auscultation: clear to auscultation bilaterally Cardio: Rate: regular rate Rhythm: regular rhythm Heart sounds: no gallops, no murmurs and no rubs GI: Palpation (GI): Soft to palpation and Other GI palpation findings present ( Nontender) Auscultation: normal bowel sounds Neuro: Cranial nerves: Yes Equal, round and reactive pupils present Extrem: General: Yes no pedal edema, No clubbing and No cyanosis Objective Data Labs 01/04/23 05:09 01/04/23 05:09 Labs: Laboratory Results - last 24 hr 12/27/22 01/04/23 01/04/23 06:13 05:09 05:09 WBC 12.7 H RBC 2.70 L Hgb 9.3 L Hct 26.0 L MCV 96.3 MCH 34.4 H MCHC 35.8 RDW 14.5 Plt Count 185 MPV 11.3 Immature Gran % (Auto) 1.2 H Neut % (Auto) 71.3 Lymph % (Auto) 12.7 L [place] % (Auto) 10.7 Eos % (Auto) 2.8 Baso % (Auto) 1.3 Lymph # (Auto) 1.6 [place] # (Auto) 1.4 H Eos # (Auto) 0.4 Baso # (Auto) 0.2 Abs Immat Gran (auto) 0.15 H Absolute Neuts (auto) 9.1 H Absolute Nucleated RBC 0.000 Nucleated RBC % (auto) 0.0 Hep-Ind Thrombocytop Com TNP VBG pH VBG pCO2 VBG pO2 VBG HCO3 VBG O2 Saturation VBG Base Excess Sodium 128 L Potassium 4.5 Chloride 96 Carbon Dioxide 14 L Anion Gap 23 H BUN 90 H Creatinine 7.82 H* Estim Creat Clear Calc 12.4 Estimated GFR 7 Random Glucose 96 Calcium 8.1 L Phosphorus 11.4 H Magnesium 2.7 H Albumin 3.0 L 01/04/23 05:15 WBC RBC Hgb Hct MCV MCH MCHC RDW Plt Count MPV Immature Gran % (Auto) Neut % (Auto) Lymph % (Auto) [place] % (Auto) Eos % (Auto) Baso % (Auto) Lymph # (Auto) [place] # (Auto) Eos # (Auto) Baso # (Auto) Abs Immat Gran (auto) Absolute Neuts (auto) Absolute Nucleated RBC Nucleated RBC % (auto) Hep-Ind Thrombocytop Com VBG pH 7.40 VBG pCO2 23 VBG pO2 98 VBG HCO3 14 L VBG O2 Saturation 97.0 VBG Base Excess -8.6 Sodium Potassium Chloride Carbon Dioxide Anion Gap BUN Creatinine Estim Creat Clear Calc Estimated GFR Random Glucose Calcium Phosphorus Magnesium Albumin Microbiology Microbiology Results: Microbiology 12/25/22 09:54 Blood - Venous Blood Culture - Final No growth after 5 days. 12/25/22 09:58 Blood - Venous Blood Culture - Final No growth after 5 days. 12/26/22 08:44 Sputum - Suctioned Gram Stain - Final 12/26/22 08:44 Sputum - Suctioned Sputum Culture - Final Enterobacter aerogenes 12/21/22 Unknown Urine Catheterized - Giron Catheter Urine Culture - Final No growth. Progress Note: A&P Assessment and plan (1) Polysubstance abuse: Status: Acute (2) Cardiac arrest: Status: Acute (3) Acute respiratory failure: Status: Acute (4) Anoxic brain injury: Status: Acute Plan Assessment: 52-year-old gentleman admitted with PEA out of hospital cardiac arrest with unclear down time with returned spontaneous circulation upon arrival to emergency room, intubated during the CPR Plan: Neuro: Polysubstance abuse. Persistent encephalopathy 13 days after cardiac arrest with minimal improvement. Anoxic brain injury on MRI. Evaluated by neurology and likely has only very slight chances for meaningful recovery. Cardiac: PEA out of hospital cardiac arrest with unclear down time. NSTEMI resolved. Pulmonary: Acute respiratory failure, intubated during the CPR. Continue to titrate off ventilatory support as tolerated. Renal: Acute renal failure secondary to cardiac arrest. Oliguric. Likely ischemic ATN. Now hemodialysis dependent. Nephrology service care appreciated. Continue to monitor renal indices and urine output. Endo: No acute issues. GI: Ischemic hepatitis after cardiac arrest, resolved. Episode of passing clots per rectum, likely delayed stress gastritis on the background of anoxic injury and uremia. No recurrence. ID: Enterobacter in sputum, continue Levaquin for 14 days. Heme/Onc: No acute issues. Psych: No acute issues. Miscellaneous: Family is considering goals of care. Prophylaxis: Pneumatic compression, famotidine Diet: Tube feeds Critical care time spent: 45 minutes Quality Stroke Does the patient have a stroke diagnosis?: No VTE Prior VTE?: No VTE Risk Level:: Medical - moderate - high VTE Device Contraindication: N/A - Device Ordered VTE Drug Contraindication: N/A - Med Ordered
[2023-01-04] MEDS: Chlorhexidine Gluc Oral Rinse 15 ML MOUTHWASH BUCCAL ×3 (10:30→21:53)
[2023-01-04] MEDS: Heparin Sodium,Porcine 5,000 UNIT/ML VIAL 5000 UNIT INTRACATH (10:30)
[2023-01-04] MEDS: levoFLOXacin/D5W 500 MG/100 ML PIGGYBACK 100 MG IV (16:48)
[2023-01-04] MEDS: Albuterol Sulfate (0.083%) 2.5 MG/3 ML VIAL.NEB INHALE (23:26)
[2023-01-05] VITALS (30 sets, daily range): BP systolic 110–155; BP diastolic 59–89; PULSE 78–96; RESP 16–29; TEMP 34.3–37.6; O2SAT 96–100; BMI 25.2
[2023-01-05] MEDS: propofoL 1,000 MG/100 ML VIAL 15.93 MG IVCONT ×5 (02:41→23:53)
[2023-01-05] MEDS: levETIRAcetam in NaCl (iso-os) 1,000 MG/100 ML PIGGYBACK 400 MG IV ×2 (03:32→15:52)
[2023-01-05 05:30] LABS: VBG Base Excess -3.3 mmol/L; VBG HCO3 20 mmol/L (22-26); VBG pCO2 32 mmHg; VBG pO2 49 mmHg
[2023-01-05 05:39] LABS: MANUAL DIFF FLAG NO
[2023-01-05 05:41] LABS: Basophils Absolute Auto 0.2 X10*3/uL (0.0-0.2); Basophils Percent Auto 1.6 % (0-2); Eosinophils Absolute Auto 0.2 X10*3/uL (0.0-0.4); Eosinophils Percent Auto 1.7 % (0-4); Hematocrit 29.4 % (42.0-52.0); Imm Gran Abs Auto 0.13 X10*3/uL (0.00-0.03); Imm Gran Pct Auto 0.9 % (0.0-0.4); Lymphocytes Percent Auto 14.7 % (20-40); Mean Corpuscular Hemoglobin 34.1 pg (27.0-33.0); Mean Corpuscular Volume 100.3 fL (80.0-98.0); Monocytes Absolute Auto 1.5 X10*3/uL (0.1-1.2); Monocytes Percent Auto 10.8 % (2-11); Neutrophils Absolute Auto 9.7 x10*3/uL (2.0-8.3); Neutrophils Percent Auto 70.3 % (45-73); Platelet Count 168 X10*3/uL (160-400); Red Blood Count 2.93 X10*6/uL (4.60-5.80); Red Cell Distribution Width 14.6 % (11.0-16.0); White Blood Count 13.9 X10*3/uL (4.8-10.8)
[2023-01-05] MEDS: Pantoprazole Sodium 40 MG/10 ML VIAL IVPUSH (05:45)
[2023-01-05 06:10] LABS: Venous Blood Gas Refer to POC result
[2023-01-05 06:12] LABS: Albumin Level 3.1 g/dL (3.5-5.0); Anion Gap 21 (12-20); Blood Urea Nitrogen 67 mg/dL (9-16); Calcium 8.5 mg/dL (8.4-10.2); Carbon Dioxide 20 mmol/L (22-29); Chloride 92 mmol/L (96-108); Creatinine Clr Calc Pharmacy 15.1; Estimated Glomerular Filt Rate 9; Glucose Random 113 mg/dL (60-115); Magnesium 2.5 mg/dL (1.6-2.6); Phosphorus 10.3 mg/dL (2.7-4.5); Potassium 4.4 mmol/L (3.3-5.1); Sodium 129 mmol/L (135-145)
[2023-01-05] MEDS: Chlorhexidine Gluc Oral Rinse 15 ML MOUTHWASH BUCCAL ×3 (08:10→20:09)
--- NOTE | 2023-01-05 08:10 | PM.PNNEP ---
Subjective Subjective Date of Service: 01/05/23 Interval history: No events overnight. Events noted. All recent data reviewed Physical Exam Vital Signs: Vital Signs: Last Vital Signs Temp 97.9 F 01/05/23 08:00 Pulse 81 01/05/23 08:00 Resp 24 H 01/05/23 08:00 BP 125/68 01/05/23 08:00 Pulse Ox 99 01/05/23 08:00 O2 Del Method 01/05/23 08:00 O2 Flow Rate 98 01/04/23 07:00 FiO2 25 01/05/23 08:00 BMI result Body Mass Index 25.2 Const: General: no acute distress Neck: Neck: Yes supple Resp: Auscultation: diminished lung sounds Cardio: Rate: regular rate GI: Palpation (GI): Soft to palpation Neuro: Other: Intubated Objective Data Labs 01/05/23 05:22 01/05/23 05:22 Labs: Laboratory Results - last 24 hr 01/05/23 01/05/23 01/05/23 05:22 05:22 05:23 WBC 13.9 H RBC 2.93 L Hgb 10.0 L Hct 29.4 L MCV 100.3 H MCH 34.1 H MCHC 34.0 RDW 14.6 Plt Count 168 MPV 11.0 Immature Gran % (Auto) 0.9 H Neut % (Auto) 70.3 Lymph % (Auto) 14.7 L [place] % (Auto) 10.8 Eos % (Auto) 1.7 Baso % (Auto) 1.6 Lymph # (Auto) 2.0 [place] # (Auto) 1.5 H Eos # (Auto) 0.2 Baso # (Auto) 0.2 Abs Immat Gran (auto) 0.13 H Absolute Neuts (auto) 9.7 H Absolute Nucleated RBC 0.000 Nucleated RBC % (auto) 0.0 VBG pH 7.40 VBG pCO2 32 VBG pO2 49 VBG HCO3 20 L VBG O2 Saturation 68.0 VBG Base Excess -3.3 Sodium 129 L Potassium 4.4 Chloride 92 L Carbon Dioxide 20 L Anion Gap 21 H BUN 67 H Creatinine 6.39 H* Estim Creat Clear Calc 15.1 Estimated GFR 9 Random Glucose 113 Calcium 8.5 Phosphorus 10.3 H Magnesium 2.5 Albumin 3.1 L Microbiology Microbiology Results: Microbiology 12/25/22 09:54 Blood - Venous Blood Culture - Final No growth after 5 days. 12/25/22 09:58 Blood - Venous Blood Culture - Final No growth after 5 days. 12/26/22 08:44 Sputum - Suctioned Gram Stain - Final 12/26/22 08:44 Sputum - Suctioned Sputum Culture - Final Enterobacter aerogenes 12/21/22 Unknown Urine Catheterized - Giron Catheter Urine Culture - Final No growth. Procedures Date of Service Date of Service: 01/05/23 Assessment & Plan Assessment and plan (1) Acute renal failure: Status: Acute Assessment and Plan: VITA due to Ischemic ATN Remains on HD- Was dialyzed yesterday Acidosis( better); Increased bicarb on HD yesterday Continued vol optimization on HD; Next HD tomorrow C/W rest of current management Time Spent With Patient Time: Total time managing care of this patient today ____ minutes. Progress Note: Quality Stroke Does the patient have a stroke diagnosis?: No
--- NOTE | 2023-01-05 10:43 | PM.CCPN ---
Subjective Subjective Date of Service: 01/05/23 Interval History: 52-year-old gentleman with unclear past medical history admitted on 12/21/2022 with out of hospital PEA cardiac arrest with unclear down time with returned spontaneous circulation on arrival to emergency room, intubated during the CPR and transferred to intensive care unit. Patient with profound metabolic lactic acidosis, ischemic hepatitis, and acute renal failure requiring high dose vasopressor support. Hospital course significant for improvement in ischemic hepatitis and pressor requirements, but development of hemodialysis dependence and persistent encephalopathy with minimal improvement.[facility] with significant anoxic injury. Evaluated by neurology and deemed to have very slim chances of meaningful recovery. No events overnight. Urine output is improving. Critical Care Time (minutes): 45 Physical Exam Vital Signs: Vital Signs: Last Vital Signs Temp 98.2 F 01/05/23 10:00 Pulse 82 01/05/23 10:00 Resp 27 H 01/05/23 10:00 BP 151/84 H 01/05/23 10:00 Pulse Ox 97 01/05/23 10:00 O2 Del Method 01/05/23 10:00 O2 Flow Rate 98 01/04/23 07:00 FiO2 25 01/05/23 10:00 BMI result Body Mass Index 25.2 Const: General: no acute distress Eyes: Sclerae: sclerae normal Pupils: Equal, round and reactive pupils present Neck: Neck: Yes no lymphadenopathy, Yes trachea midline and Yes supple Resp: Auscultation: clear to auscultation bilaterally Cardio: Rate: regular rate Rhythm: regular rhythm Heart sounds: no gallops, no murmurs and no rubs GI: Palpation (GI): Soft to palpation and Other GI palpation findings present ( Nontender) Auscultation: normal bowel sounds Neuro: Cranial nerves: Yes Equal, round and reactive pupils present Extrem: General: Yes no pedal edema, No clubbing and No cyanosis Objective Data Labs 01/05/23 05:22 01/05/23 05:22 Labs: Laboratory Results - last 24 hr 01/05/23 01/05/23 01/05/23 05:22 05:22 05:23 WBC 13.9 H RBC 2.93 L Hgb 10.0 L Hct 29.4 L MCV 100.3 H MCH 34.1 H MCHC 34.0 RDW 14.6 Plt Count 168 MPV 11.0 Immature Gran % (Auto) 0.9 H Neut % (Auto) 70.3 Lymph % (Auto) 14.7 L [place] % (Auto) 10.8 Eos % (Auto) 1.7 Baso % (Auto) 1.6 Lymph # (Auto) 2.0 [place] # (Auto) 1.5 H Eos # (Auto) 0.2 Baso # (Auto) 0.2 Abs Immat Gran (auto) 0.13 H Absolute Neuts (auto) 9.7 H Absolute Nucleated RBC 0.000 Nucleated RBC % (auto) 0.0 VBG pH 7.40 VBG pCO2 32 VBG pO2 49 VBG HCO3 20 L VBG O2 Saturation 68.0 VBG Base Excess -3.3 Sodium 129 L Potassium 4.4 Chloride 92 L Carbon Dioxide 20 L Anion Gap 21 H BUN 67 H Creatinine 6.39 H* Estim Creat Clear Calc 15.1 Estimated GFR 9 Random Glucose 113 Calcium 8.5 Phosphorus 10.3 H Magnesium 2.5 Albumin 3.1 L Microbiology Microbiology Results: Microbiology 12/25/22 09:54 Blood - Venous Blood Culture - Final No growth after 5 days. 12/25/22 09:58 Blood - Venous Blood Culture - Final No growth after 5 days. 12/26/22 08:44 Sputum - Suctioned Gram Stain - Final 12/26/22 08:44 Sputum - Suctioned Sputum Culture - Final Enterobacter aerogenes 12/21/22 Unknown Urine Catheterized - Giron Catheter Urine Culture - Final No growth. Progress Note: A&P Assessment and plan (1) Polysubstance abuse: Status: Acute (2) Cardiac arrest: Status: Acute (3) Anoxic brain injury: Status: Acute (4) Acute renal failure: Status: Acute Plan Assessment: 52-year-old gentleman admitted with PEA out of hospital cardiac arrest with unclear down time with returned spontaneous circulation upon arrival to emergency room, intubated during the CPR Plan: Neuro: Polysubstance abuse. Persistent encephalopathy 15 days after cardiac arrest with minimal improvement. Anoxic brain injury on MRI. Evaluated by neurology and likely has only very slight chances for meaningful recovery. Cardiac: PEA out of hospital cardiac arrest with unclear down time. NSTEMI resolved. Pulmonary: Acute respiratory failure, intubated during the CPR. Continue to titrate off ventilatory support as tolerated. Renal: Acute renal failure secondary to cardiac arrest, likely ischemic ATN, improving. No longer oliguric. Still hemodialysis dependent. Nephrology service care appreciated. Continue to monitor renal indices and urine output. Endo: No acute issues. GI: Ischemic hepatitis after cardiac arrest, resolved. Episode of passing clots per rectum, likely delayed stress gastritis on the background of anoxic injury and uremia. No recurrence. ID: Enterobacter in sputum, continue Levaquin for 14 days (through 01/10). Heme/Onc: No acute issues. Psych: No acute issues. Miscellaneous: Family is considering goals of care. Prophylaxis: Pneumatic compression, famotidine Diet: Tube feeds Critical care time spent: 45 minutes Quality Stroke Does the patient have a stroke diagnosis?: No VTE Prior VTE?: No VTE Risk Level:: Medical - moderate - high VTE Device Contraindication: N/A - Device Ordered VTE Drug Contraindication: N/A - Med Ordered
[2023-01-06] VITALS (29 sets, daily range): BP systolic 115–156; BP diastolic 58–87; PULSE 28–115; RESP 23–30; TEMP 34.7–37.4; O2SAT 27–98; BMI 24.9
[2023-01-06] MEDS: levETIRAcetam in NaCl (iso-os) 1,000 MG/100 ML PIGGYBACK 400 MG IV ×2 (02:07→16:07)
[2023-01-06] MEDS: propofoL 1,000 MG/100 ML VIAL 15.93 MG IVCONT (04:37)
[2023-01-06 04:53] LABS: VBG Base Excess -7.3 mmol/L; VBG HCO3 16 mmol/L (22-26); VBG pCO2 29 mmHg; VBG pH 7.35 (7.32-7.43); VBG pO2 77 mmHg
[2023-01-06 05:02] LABS: Venous Blood Gas Refer to POC result
[2023-01-06 05:26] LABS: Basophils Absolute Auto 0.2 X10*3/uL (0.0-0.2); Basophils Percent Auto 1.3 % (0-2); Eosinophils Absolute Auto 0.3 X10*3/uL (0.0-0.4); Eosinophils Percent Auto 2.2 % (0-4); Hematocrit 27.4 % (42.0-52.0); Hemoglobin 9.7 g/dl (14.0-18.0); Imm Gran Abs Auto 0.12 X10*3/uL (0.00-0.03); Imm Gran Pct Auto 0.8 % (0.0-0.4); Lymphocytes Absolute Auto 2.3 X10*3/uL (1.2-4.9); Lymphocytes Percent Auto 15.4 % (20-40); MANUAL DIFF FLAG SCAN; Mean Corpuscular HGB Conc 35.4 g/dl (31.0-36.0); Mean Corpuscular Hemoglobin 34.8 pg (27.0-33.0); Mean Corpuscular Volume 98.2 fL (80.0-98.0); Mean Platelet Volume 11.1 fL (9.4-12.4); Monocytes Absolute Auto 1.8 X10*3/uL (0.1-1.2); Neutrophils Absolute Auto 10.3 x10*3/uL (2.0-8.3); Neutrophils Percent Auto 68.3 % (45-73); Platelet Count 192 X10*3/uL (160-400); Red Blood Count 2.79 X10*6/uL (4.60-5.80); SCAN SMEAR FLAG 1
[2023-01-06 05:48] LABS: Albumin Level 3.2 g/dL (3.5-5.0); Anion Gap 24 (12-20); Blood Urea Nitrogen 98 mg/dL (9-16); Calcium 8.6 mg/dL (8.4-10.2); Carbon Dioxide 18 mmol/L (22-29); Chloride 90 mmol/L (96-108); Creatinine Clr Calc Pharmacy 12.3; Estimated Glomerular Filt Rate 7; Glucose Random 94 mg/dL (60-115); Magnesium 2.8 mg/dL (1.6-2.6); Phosphorus 13.3 mg/dL (2.7-4.5); Potassium 4.7 mmol/L (3.3-5.1); Sodium 127 mmol/L (135-145)
[2023-01-06 05:52] LABS: SLIDE REVIEW VERIFIED
[2023-01-06] MEDS: Chlorhexidine Gluc Oral Rinse 15 ML MOUTHWASH BUCCAL ×3 (08:38→20:18)
--- NOTE | 2023-01-06 09:37 | MHC.CM.PN ---
Pt continues on ventilatory support and new HD. Imaging supports hypoxic brain injury with no return of higher functioning. Pt in a permanent vegetative state per MD. Pt's family arrives today for goals of care discussion. If family opts for continuation of care, he will need a peg/trach, [place] insurance and LTAC placement which will be limited with payor and HD status. CM to discuss all options/barriers w/family when they arrive [place] [facility]
--- NOTE | 2023-01-06 10:49 | PM.PNNEP ---
Subjective Subjective Date of Service: 01/06/23 Interval history: Seen during HD UO has improved Physical Exam Vital Signs: Vital Signs: Last Vital Signs Temp 98.4 F 01/06/23 10:00 Pulse 102 H 01/06/23 10:00 Resp 29 H 01/06/23 10:00 BP 145/82 H 01/06/23 10:00 Pulse Ox 97 01/06/23 10:00 O2 Del Method 01/06/23 10:00 O2 Flow Rate 25 01/06/23 00:00 FiO2 25 01/06/23 10:00 BMI result Body Mass Index 24.9 Const: General: no acute distress Neck: Neck: Yes supple Resp: Auscultation: diminished lung sounds Cardio: Rate: regular rate GI: Palpation (GI): Soft to palpation Skin: General skin exam: no rashes or lesions noted Neuro: Other: Intubated Objective Data Labs 01/06/23 04:49 01/06/23 04:49 Labs: Laboratory Results - last 24 hr 01/06/23 01/06/23 01/06/23 04:45 04:49 04:49 WBC 15.0 H RBC 2.79 L Hgb 9.7 L Hct 27.4 L MCV 98.2 H MCH 34.8 H MCHC 35.4 RDW 14.0 Plt Count 192 MPV 11.1 Immature Gran % (Auto) 0.8 H Neut % (Auto) 68.3 Lymph % (Auto) 15.4 L [place] % (Auto) 12.0 H Eos % (Auto) 2.2 Baso % (Auto) 1.3 Lymph # (Auto) 2.3 [place] # (Auto) 1.8 H Eos # (Auto) 0.3 Baso # (Auto) 0.2 Abs Immat Gran (auto) 0.12 H Absolute Neuts (auto) 10.3 H Absolute Nucleated RBC 0.000 Nucleated RBC % (auto) 0.0 Smear Tech's Comments VERIFIED VBG pH 7.35 VBG pCO2 29 VBG pO2 77 VBG HCO3 16 L VBG O2 Saturation 92.0 VBG Base Excess -7.3 Sodium 127 L Potassium 4.7 Chloride 90 L Carbon Dioxide 18 L Anion Gap 24 H BUN 98 H Creatinine 7.88 H* Estim Creat Clear Calc 12.3 Estimated GFR 7 Random Glucose 94 Calcium 8.6 Phosphorus 13.3 H Magnesium 2.8 H Albumin 3.2 L Microbiology Microbiology Results: Microbiology 12/25/22 09:54 Blood - Venous Blood Culture - Final No growth after 5 days. 12/25/22 09:58 Blood - Venous Blood Culture - Final No growth after 5 days. 12/26/22 08:44 Sputum - Suctioned Gram Stain - Final 12/26/22 08:44 Sputum - Suctioned Sputum Culture - Final Enterobacter aerogenes 12/21/22 Unknown Urine Catheterized - Giron Catheter Urine Culture - Final No growth. Procedures Date of Service Date of Service: 01/06/23 Assessment & Plan Assessment and plan (1) Acute renal failure: Status: Acute Assessment and Plan: VITA due to Ischemic ATN Remains on HD- Acidosis( better); Increased bicarb on HD Continued vol optimization on HD; Reassess need for HD on Friday C/W rest of current management Time Spent With Patient Time: Total time managing care of this patient today ____ minutes. Progress Note: Quality Stroke Does the patient have a stroke diagnosis?: No
--- NOTE | 2023-01-06 11:09 | MHC.CLN ---
F/U PT REMAINS INTUBATED AND SEDATED-CONTINUES WITH HEMODIALYSIS DISCUSSED AT ROUNDS WITH MD TOLERATING TUBE FEEDINGS PT RECEIVING NEPRO TO MAX GOAL RATE 40 ML PER HOUR WITH 120ML FREE WATER FLUSHES Q 6HRS PROVIDES: 1728 KCALS (1868 KCALS WITH SEDATION; 23 KCALS/KG IBW); 78 G PROTEIN (.96 G/KG IBW); 1178ML TOTAL WATER FROM FORMULA AND FLUSHES NOTED SERUM NA CONTINUES TO DECREASE RECOMMEND D/C FREE WATER FLUSHES CONTINUE TO MONITOR TOLERANCE, RESIDUALS AND LYTES FAMILY MEETING PENDING TODAY -FOLLOWING WITH TEAM
--- NOTE | 2023-01-06 13:34 | PM.CCPN ---
Subjective Subjective Date of Service: 01/06/23 Interval History: 52-year-old gentleman with unclear past medical history admitted on 12/21/2022 with out of hospital PEA cardiac arrest with unclear down time with returned spontaneous circulation on arrival to emergency room, intubated during the CPR and transferred to intensive care unit. Patient with profound metabolic lactic acidosis, ischemic hepatitis, and acute renal failure requiring high dose vasopressor support. Hospital course significant for improvement in ischemic hepatitis and pressor requirements, but development of hemodialysis dependence and persistent encephalopathy with minimal improvement.[facility] with significant anoxic injury. Evaluated by neurology and deemed to have very slim chances of meaningful recovery. No events overnight. Critical Care Time (minutes): 45 Physical Exam Vital Signs: Vital Signs: Last Vital Signs Temp 99.3 F 01/06/23 13:00 Pulse 105 H 01/06/23 13:00 Resp 28 H 01/06/23 13:00 BP 139/81 01/06/23 13:00 Pulse Ox 96 01/06/23 13:00 O2 Del Method 01/06/23 13:00 O2 Flow Rate 25 01/06/23 00:00 FiO2 25 01/06/23 13:00 BMI result Body Mass Index 24.9 Const: General: no acute distress Eyes: Sclerae: sclerae normal Pupils: Equal, round and reactive pupils present Neck: Neck: Yes no lymphadenopathy, Yes trachea midline and Yes supple Resp: Effort & Inspection: normal respiratory effort and no respiratory distress Auscultation: clear to auscultation bilaterally Cardio: Rate: tachycardic Rhythm: regular rhythm Heart sounds: no gallops, no murmurs and no rubs GI: Palpation (GI): Soft to palpation and Other GI palpation findings present ( Nontender) Auscultation: normal bowel sounds Neuro: Cranial nerves: Yes Equal, round and reactive pupils present Extrem: General: Yes no pedal edema, No clubbing and No cyanosis Objective Data Labs 01/06/23 04:49 01/06/23 04:49 Labs: Laboratory Results - last 24 hr 01/06/23 01/06/23 01/06/23 04:45 04:49 04:49 WBC 15.0 H RBC 2.79 L Hgb 9.7 L Hct 27.4 L MCV 98.2 H MCH 34.8 H MCHC 35.4 RDW 14.0 Plt Count 192 MPV 11.1 Immature Gran % (Auto) 0.8 H Neut % (Auto) 68.3 Lymph % (Auto) 15.4 L [place] % (Auto) 12.0 H Eos % (Auto) 2.2 Baso % (Auto) 1.3 Lymph # (Auto) 2.3 [place] # (Auto) 1.8 H Eos # (Auto) 0.3 Baso # (Auto) 0.2 Abs Immat Gran (auto) 0.12 H Absolute Neuts (auto) 10.3 H Absolute Nucleated RBC 0.000 Nucleated RBC % (auto) 0.0 Smear Tech's Comments VERIFIED VBG pH 7.35 VBG pCO2 29 VBG pO2 77 VBG HCO3 16 L VBG O2 Saturation 92.0 VBG Base Excess -7.3 Sodium 127 L Potassium 4.7 Chloride 90 L Carbon Dioxide 18 L Anion Gap 24 H BUN 98 H Creatinine 7.88 H* Estim Creat Clear Calc 12.3 Estimated GFR 7 Random Glucose 94 Calcium 8.6 Phosphorus 13.3 H Magnesium 2.8 H Albumin 3.2 L Microbiology Microbiology Results: Microbiology 12/25/22 09:54 Blood - Venous Blood Culture - Final No growth after 5 days. 12/25/22 09:58 Blood - Venous Blood Culture - Final No growth after 5 days. 12/26/22 08:44 Sputum - Suctioned Gram Stain - Final 12/26/22 08:44 Sputum - Suctioned Sputum Culture - Final Enterobacter aerogenes 12/21/22 Unknown Urine Catheterized - Giron Catheter Urine Culture - Final No growth. Progress Note: A&P Assessment and plan (1) Polysubstance abuse: Status: Acute (2) Cardiac arrest: Status: Acute (3) Acute respiratory failure: Status: Acute (4) Anoxic brain injury: Status: Acute (5) Acute renal failure: Status: Acute Plan Assessment: 52-year-old gentleman admitted with PEA out of hospital cardiac arrest with unclear down time with returned spontaneous circulation upon arrival to emergency room, intubated during the CPR Plan: Neuro: Polysubstance abuse. Persistent encephalopathy 16 days after cardiac arrest with minimal improvement. Anoxic brain injury on MRI. Evaluated by neurology and likely has only very slight chances for meaningful recovery. Cardiac: PEA out of hospital cardiac arrest with unclear down time. NSTEMI resolved. Pulmonary: Acute respiratory failure, intubated during the CPR. Continue to titrate off ventilatory support as tolerated. Renal: Acute renal failure secondary to cardiac arrest, likely ischemic ATN, improving. No longer oliguric. Still hemodialysis dependent. Nephrology service care appreciated. Continue to monitor renal indices and urine output. Endo: No acute issues. GI: Ischemic hepatitis after cardiac arrest, resolved. Episode of passing clots per rectum, likely delayed stress gastritis on the background of anoxic injury and uremia. No recurrence. ID: Enterobacter in sputum, continue Levaquin for 14 days (through 01/14). Heme/Onc: No acute issues. Psych: No acute issues. Miscellaneous: Family is considering goals of care. Prophylaxis: Pneumatic compression, famotidine Diet: Tube feeds Critical care time spent: 45 minutes Quality Stroke Does the patient have a stroke diagnosis?: No VTE Prior VTE?: No VTE Risk Level:: Medical - moderate - high VTE Device Contraindication: N/A - Device Ordered VTE Drug Contraindication: N/A - Med Ordered
[2023-01-06] MEDS: levoFLOXacin/D5W 500 MG/100 ML PIGGYBACK 100 MG IV (16:07)
[2023-01-06] MEDS: propofoL 1,000 MG/100 ML VIAL 5.31 MG IVCONT ×2 (17:10→20:19)
[2023-01-07] VITALS (24 sets, daily range): BP systolic 115–148; BP diastolic 68–87; PULSE 0–104; RESP 0–30; TEMP 34.4–37.4; O2SAT 50–97; BMI 24.2
[2023-01-07] MEDS: levETIRAcetam in NaCl (iso-os) 1,000 MG/100 ML PIGGYBACK 400 MG IV (02:31)
[2023-01-07 05:01] LABS: VBG HCO3 18 mmol/L (22-26); VBG pCO2 25 mmHg; VBG pH 7.45 (7.32-7.43); VBG pO2 92 mmHg
[2023-01-07 05:09] LABS: Venous Blood Gas Refer to POC result
[2023-01-07 05:32] LABS: MANUAL DIFF FLAG NO
[2023-01-07 05:35] LABS: Basophils Absolute Auto 0.2 X10*3/uL (0.0-0.2); Basophils Percent Auto 1.4 % (0-2); Eosinophils Absolute Auto 0.2 X10*3/uL (0.0-0.4); Eosinophils Percent Auto 1.4 % (0-4); Hematocrit 29.4 % (42.0-52.0); Hemoglobin 10.2 g/dl (14.0-18.0); Imm Gran Abs Auto 0.11 X10*3/uL (0.00-0.03); Imm Gran Pct Auto 0.8 % (0.0-0.4); Lymphocytes Absolute Auto 1.7 X10*3/uL (1.2-4.9); Lymphocytes Percent Auto 11.7 % (20-40); Mean Corpuscular HGB Conc 34.7 g/dl (31.0-36.0); Mean Corpuscular Hemoglobin 33.9 pg (27.0-33.0); Mean Corpuscular Volume 97.7 fL (80.0-98.0); Mean Platelet Volume 10.8 fL (9.4-12.4); Monocytes Absolute Auto 1.4 X10*3/uL (0.1-1.2); Monocytes Percent Auto 9.5 % (2-11); Neutrophils Percent Auto 75.2 % (45-73); Platelet Count 177 X10*3/uL (160-400); Red Blood Count 3.01 X10*6/uL (4.60-5.80); Red Cell Distribution Width 14.1 % (11.0-16.0); White Blood Count 14.6 X10*3/uL (4.8-10.8)
[2023-01-07 05:59] LABS: Alanine Aminotransferase 35 U/L (0-40); Albumin Level 3.3 g/dL (3.5-5.0); Alkaline Phosphatase 237 U/L (39-117); Anion Gap 24 (12-20); Aspartate Amino Transferase 69 U/L (5-37); Blood Urea Nitrogen 76 mg/dL (9-16); Calcium 8.6 mg/dL (8.4-10.2); Carbon Dioxide 18 mmol/L (22-29); Chloride 95 mmol/L (96-108); Creatinine Clr Calc Pharmacy 15.1; Estimated Glomerular Filt Rate 9; Glucose Random 126 mg/dL (60-115); Magnesium 2.7 mg/dL (1.6-2.6); Phosphorus 10.5 mg/dL (2.7-4.5); Potassium 4.2 mmol/L (3.3-5.1); Sodium 133 mmol/L (135-145); Total Protein 8.1 g/dL (6.5-8.0)
[2023-01-07] MEDS: propofoL 1,000 MG/100 ML VIAL 5.31 MG IVCONT (07:49)
[2023-01-07] MEDS: Chlorhexidine Gluc Oral Rinse 15 ML MOUTHWASH BUCCAL ×2 (07:49→15:12)
--- NOTE | 2023-01-07 11:08 | PM.PNNEP ---
Subjective Subjective Date of Service: 01/07/23 Interval history: Events noted UO noted Physical Exam Vital Signs: Vital Signs: Last Vital Signs Temp 98.4 F 01/07/23 10:00 Pulse 86 01/07/23 10:00 Resp 23 H 01/07/23 10:00 BP 123/77 01/07/23 10:00 Pulse Ox 97 01/07/23 10:00 O2 Del Method 01/07/23 10:00 O2 Flow Rate 25 01/06/23 00:00 FiO2 25 01/07/23 10:00 BMI result Body Mass Index 24.2 Const: General: no acute distress Neck: Neck: Yes supple Resp: Auscultation: diminished lung sounds Cardio: Rate: regular rate GI: Palpation (GI): Soft to palpation Skin: General skin exam: no rashes or lesions noted Neuro: Other: Intubated Objective Data Labs 01/07/23 04:57 01/07/23 04:57 Labs: Laboratory Results - last 24 hr 01/07/23 01/07/23 01/07/23 04:53 04:57 04:57 WBC 14.6 H RBC 3.01 L Hgb 10.2 L Hct 29.4 L MCV 97.7 MCH 33.9 H MCHC 34.7 RDW 14.1 Plt Count 177 MPV 10.8 Immature Gran % (Auto) 0.8 H Neut % (Auto) 75.2 H Lymph % (Auto) 11.7 L [place] % (Auto) 9.5 Eos % (Auto) 1.4 Baso % (Auto) 1.4 Lymph # (Auto) 1.7 [place] # (Auto) 1.4 H Eos # (Auto) 0.2 Baso # (Auto) 0.2 Abs Immat Gran (auto) 0.11 H Absolute Neuts (auto) 11.0 H Absolute Nucleated RBC 0.000 Nucleated RBC % (auto) 0.0 VBG pH 7.45 H VBG pCO2 25 VBG pO2 92 VBG HCO3 18 L VBG O2 Saturation 97.0 VBG Base Excess -4.0 Sodium 133 L Potassium 4.2 Chloride 95 L Carbon Dioxide 18 L Anion Gap 24 H BUN 76 H Creatinine 6.39 H* Estim Creat Clear Calc 15.1 Estimated GFR 9 Random Glucose 126 H Calcium 8.6 Phosphorus 10.5 H Magnesium 2.7 H Total Bilirubin 4.0 H AST 69 H ALT 35 Alkaline Phosphatase 237 H Total Protein 8.1 H Albumin 3.3 L Microbiology Microbiology Results: Microbiology 12/25/22 09:54 Blood - Venous Blood Culture - Final No growth after 5 days. 12/25/22 09:58 Blood - Venous Blood Culture - Final No growth after 5 days. 12/26/22 08:44 Sputum - Suctioned Gram Stain - Final 12/26/22 08:44 Sputum - Suctioned Sputum Culture - Final Enterobacter aerogenes 12/21/22 Unknown Urine Catheterized - Giron Catheter Urine Culture - Final No growth. Procedures Date of Service Date of Service: 01/07/23 Assessment & Plan Assessment and plan (1) Acute renal failure: Status: Acute Assessment and Plan: VITA due to Ischemic ATN Remains on HD- Acidosis( better); Increased bicarb on HD Continued vol optimization on HD; Reassess need for HD on Friday C/W rest of current management Time Spent With Patient Time: Total time managing care of this patient today ____ minutes. Progress Note: Quality Stroke Does the patient have a stroke diagnosis?: No
--- NOTE | 2023-01-07 12:35 | PM.CCPN ---
Subjective Subjective Date of Service: 01/07/23 Interval History: 52-year-old gentleman with unclear past medical history admitted on 12/21/2022 with out of hospital PEA cardiac arrest with unclear down time with returned spontaneous circulation on arrival to emergency room, intubated during the CPR and transferred to intensive care unit. Patient with profound metabolic lactic acidosis, ischemic hepatitis, and acute renal failure requiring high dose vasopressor support. Hospital course significant for improvement in ischemic hepatitis and pressor requirements, but development of hemodialysis dependence and persistent encephalopathy with minimal improvement.[facility] brain with significant anoxic injury. Evaluated by neurology and deemed to have very slim chances of meaningful recovery. Family continues to consider goals of care. No events overnight. Critical Care Time (minutes): 45 Physical Exam Vital Signs: Vital Signs: Last Vital Signs Temp 98.6 F 01/07/23 12:00 Pulse 98 01/07/23 12:00 Resp 27 H 01/07/23 12:00 BP 135/84 01/07/23 12:00 Pulse Ox 96 01/07/23 12:00 O2 Del Method 01/07/23 12:00 O2 Flow Rate 25 01/06/23 00:00 FiO2 30 01/07/23 12:25 BMI result Body Mass Index 24.2 Const: General: no acute distress Eyes: Sclerae: sclerae normal Pupils: Equal, round and reactive pupils present Neck: Neck: Yes no lymphadenopathy, Yes trachea midline and Yes supple Resp: Effort & Inspection: normal respiratory effort and no respiratory distress Auscultation: clear to auscultation bilaterally Cardio: Rate: tachycardic Rhythm: regular rhythm Heart sounds: no gallops, no murmurs and no rubs GI: Palpation (GI): Soft to palpation and Other GI palpation findings present ( Nontender) Auscultation: normal bowel sounds Neuro: Cranial nerves: Yes Equal, round and reactive pupils present Extrem: General: Yes no pedal edema, No clubbing and No cyanosis Objective Data Labs 01/07/23 04:57 01/07/23 04:57 Labs: Laboratory Results - last 24 hr 01/07/23 01/07/23 01/07/23 04:53 04:57 04:57 WBC 14.6 H RBC 3.01 L Hgb 10.2 L Hct 29.4 L MCV 97.7 MCH 33.9 H MCHC 34.7 RDW 14.1 Plt Count 177 MPV 10.8 Immature Gran % (Auto) 0.8 H Neut % (Auto) 75.2 H Lymph % (Auto) 11.7 L [place] % (Auto) 9.5 Eos % (Auto) 1.4 Baso % (Auto) 1.4 Lymph # (Auto) 1.7 [place] # (Auto) 1.4 H Eos # (Auto) 0.2 Baso # (Auto) 0.2 Abs Immat Gran (auto) 0.11 H Absolute Neuts (auto) 11.0 H Absolute Nucleated RBC 0.000 Nucleated RBC % (auto) 0.0 VBG pH 7.45 H VBG pCO2 25 VBG pO2 92 VBG HCO3 18 L VBG O2 Saturation 97.0 VBG Base Excess -4.0 Sodium 133 L Potassium 4.2 Chloride 95 L Carbon Dioxide 18 L Anion Gap 24 H BUN 76 H Creatinine 6.39 H* Estim Creat Clear Calc 15.1 Estimated GFR 9 Random Glucose 126 H Calcium 8.6 Phosphorus 10.5 H Magnesium 2.7 H Total Bilirubin 4.0 H AST 69 H ALT 35 Alkaline Phosphatase 237 H Total Protein 8.1 H Albumin 3.3 L Microbiology Microbiology Results: Microbiology 12/25/22 09:54 Blood - Venous Blood Culture - Final No growth after 5 days. 12/25/22 09:58 Blood - Venous Blood Culture - Final No growth after 5 days. 12/26/22 08:44 Sputum - Suctioned Gram Stain - Final 12/26/22 08:44 Sputum - Suctioned Sputum Culture - Final Enterobacter aerogenes 12/21/22 Unknown Urine Catheterized - Giron Catheter Urine Culture - Final No growth. Progress Note: A&P Assessment and plan (1) Polysubstance abuse: Status: Acute (2) Cardiac arrest: Status: Acute (3) Acute renal failure: Status: Acute (4) Anoxic brain injury: Status: Acute (5) Alcohol intoxication: Status: Acute Plan Assessment: 52-year-old gentleman admitted with PEA out of hospital cardiac arrest with unclear down time with returned spontaneous circulation upon arrival to emergency room, intubated during the CPR Plan: Neuro: Polysubstance abuse. Persistent encephalopathy 17 days after cardiac arrest with minimal improvement. Anoxic brain injury on MRI. Evaluated by neurology and likely has only very slight chances for meaningful recovery. Cardiac: PEA out of hospital cardiac arrest with unclear down time. NSTEMI resolved. Pulmonary: Acute respiratory failure, intubated during the CPR. Continue to titrate off ventilatory support as tolerated. Renal: Acute renal failure secondary to cardiac arrest, likely ischemic ATN, improving. No longer oliguric. Still hemodialysis dependent. Nephrology service care appreciated. Continue to monitor renal indices and urine output. Endo: No acute issues. GI: Ischemic hepatitis after cardiac arrest, resolved. Episode of passing clots per rectum, likely delayed stress gastritis on the background of anoxic injury and uremia. No recurrence. ID: Enterobacter in sputum, continue Levaquin for 14 days (through 01/14). Heme/Onc: No acute issues. Psych: No acute issues. Miscellaneous: Family is considering goals of care. Prophylaxis: Pneumatic compression, famotidine Diet: Tube feeds Critical care time spent: 45 minutes Quality Stroke Does the patient have a stroke diagnosis?: No VTE Prior VTE?: No VTE Risk Level:: Medical - moderate - high VTE Device Contraindication: N/A - Device Ordered VTE Drug Contraindication: N/A - Med Ordered
--- NOTE | 2023-01-07 16:00 | MHC.CM.PN ---
Met with pt's 3 brothers and mother to discuss potential LTAC placement should family decide on continuation of care. Family in agreement that pt would not want to be dependent on others or housed in a facility. They are considering VIDEO PRODUCTION INTERN care at this time and requested pastoral care as pt was spiritual. Pastoral care to room w/family and pt: ICU care team aware of family's leanings towards VIDEO PRODUCTION INTERN: CM to follow for any assistance needed.
--- NOTE | 2023-01-07 17:02 | PM.CCN ---
Critical Care Event Note Summary Date of Service: 01/07/23 Code activated: No Narrative: Family meeting held and overall poor clinical prognosis for any meaningful neurologic recovery discussed. Family reached decision to switch goals of care to palliation. Code status to changed to comfort measures only. Will proceed with terminal extubation. Critical Care Time (minutes): 0
[2023-01-07] MEDS: fentaNYL citrate/NS 1,000 MCG/100 ML PLAST..BAG 5 MCG IVCONT (17:12)
[2023-01-07] MEDS: fentaNYL citrate/PF 100 MCG/2 ML VIAL 50 MCG IVPUSH (17:13)
--- NOTE | 2023-01-07 19:30 | PC.NURSE ---
Assumed care at 0700. Patient made DEVOPS DEVELOPER at approximately 1700. Propofol gtt d/c'd, fentanyl gtt ordered and administered per EMAR. NEDS notified- this RN spoke with direct marketing representative Sd. CODS case #[id number]. Patient at 1800, plastic installer notified. Dr. Whyte from ED at bedside to pronounce. NEDS notified of time of , possible tissue donation. Per NEBHARATI, rules examiner notified, This RN spoke with industrial training specialist Lucrecia Villalta. rules examiner accepted case for chart review. Internet Application Developer Case#[id number]. Dr. Omkar Almaraz assigned to case. NEDS notified of medical observer being contacted.
--- NOTE | 2023-01-07 20:35 | P.DS_ITS ---
DS: Providers Provider Date of Service: 01/07/23 Date of admission: 12/21/22 07:20 Primary care physician: Unknown Physician Consults: 12/26/22 07:33 Consult to Nephrology Routine Consulting Provider: Ferdinand Shelton Reason for consultation: dialysis Has provider been notified: Yes 12/30/22 19:57 Consult to Neurology Routine Consulting Provider: [facility] Reason for consultation: persistent encephalopathy / abnormal MR brain Has provider been notified: No DS: Diagnosis Discharge Diagnosis (1) Polysubstance abuse: Status: Acute (2) Cardiac arrest: Status: Acute (3) Acute renal failure: Status: Acute (4) Anoxic brain injury: Status: Acute (5) Alcohol intoxication: Status: Acute DS: Summary Hospital Course Hospital Course: ADMISSION/DISCHARGE DIAGNOSIS: 1.Multi organ failure 2. Anoxic brain injury 3. Cardiac arrest 4. NSTEMI 5. Acute kidney injury and ischemic ATN dependent on hemodialysis 6.Ischemic hepatitis post cardiac arrest 7. Melena clots per rectum likely due to stress gastritis 8. Uremia 9. Enterobacter colonized sputum 10. Polysubstance abuse 11. Alcohol intoxication 12. Hypoglycemia 13. Hepatic encephalopathy ? HPI/HOSPITAL COURSE: Patient is a 52-year-old gentleman without a known past medical history who was admitted to the ICU on 12/21/2022 after a outpatient PA cardiac arrest of unknown etiology which resulted in regaining spontaneous circulation upon arrival to the emergency room. ?He had been intubated while receiving CPR.? His initial evaluation shows significantly profound metabolic lactic acidosis along with markers showing ischemic hepatitis and significant acute renal failure all of which required high dose vasopressor support.? There was a concern for possible aspiration therefore he was given empiric antibiotics, echocardiogram as described below had been done to evaluate his cardiac function. ? On admission day 2 his troponin markers became more elevated and this was deemed to be an NSTEMI perhaps due to cocaine and perhaps with lead to the cardiac arrest; he was sternal heparin drip, and given aspirin. Bedside echo demonstrated preserved LV function was 60% of ejection fraction.? 2-3 days later anticoagulation was discontinued as this was not thought to be related to ACS.? Initially after sedation holiday he did show some signs of cough but no other cranial nerve responses no response to pain.? EEG on 12/25 22 showed considerable evidence of encephalopathy which obviously was hypoxic in nature.? On this date, also he was noted to have significantly worsens azotemia and the consideration for dialysis was made. ?A dialysis catheter was placed on 12/26/2022 and dialysis treatments were initiated. ? On 12/29/2022 he was started on Keppra IV given the possibility of what they thought might be seizure-like activity in a controlled manner.? The concern for herniation was present and a repeat CT was done but this was intact.? At the time his antibiotics was switched from meropenem which has been given after dialysis to Levaquin as he show to have Enterococcus organisms growing on his purulent secretions. ? Brain MRI done on 12/30/2022. 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 Additional restricted diffusion is seen within the posterior corpus callosum. Expansile T2/FLAIR hyperintensity in the bilateral posterior cerebral hemispheres is also demonstrated. These findings could represent posterior reversible encephalopathy syndrome (with atypical features) or alternatively could be related to encephalopathy of toxic/metabolic/infectious etiologies. Excitotoxic injury from status epilepticus is a consideration but considered less likely. ? Since then, the patient had continue with treatment and family discussions have been made on a daily basis in regards to the patient's goals of care. ?Appa rently today the patient's family had a long discussion with Dr. Armani mccain the patient was made CROSS COUNTRY COACH around 17:00.? Subsequently, the patient was noted to be in asystole on the monitor, and ER physician Dr. Maco Whyte pronounce the patient 18:00. ? Time Spent with Patient Time attestation: Total time managing care of this patient today ____ minutes. Discharge coordination time: Greater than 30 minutes Quality: Safe Use of Opioids Does Pt have an Active Cancer Diagnosis on the Problem List?: No Quality: Stroke Does the patient have a stroke diagnosis?: No Physical Exam Vital Signs: Vital Signs: Last Vital Signs Temp 99.3 F 01/07/23 17:00 Pulse 100 01/07/23 17:00 Resp 20 01/07/23 17:00 BP 134/77 01/07/23 17:00 Pulse Ox 97 01/07/23 17:00 O2 Del Method 01/07/23 17:00 O2 Flow Rate 25 01/06/23 00:00 FiO2 25 01/07/23 17:00 BMI result Body Mass Index 24.2 DS: Data Data Completed and Pending Labs on day of discharge: Laboratory Results - last 24 hr 01/07/23 01/07/23 01/07/23 04:53 04:57 04:57 WBC 14.6 H RBC 3.01 L Hgb 10.2 L Hct 29.4 L MCV 97.7 MCH 33.9 H MCHC 34.7 RDW 14.1 Plt Count 177 MPV 10.8 Immature Gran % (Auto) 0.8 H Neut % (Auto) 75.2 H Lymph % (Auto) 11.7 L [place] % (Auto) 9.5 Eos % (Auto) 1.4 Baso % (Auto) 1.4 Lymph # (Auto) 1.7 [place] # (Auto) 1.4 H Eos # (Auto) 0.2 Baso # (Auto) 0.2 Abs Immat Gran (auto) 0.11 H Absolute Neuts (auto) 11.0 H Absolute Nucleated RBC 0.000 Nucleated RBC % (auto) 0.0 VBG pH 7.45 H VBG pCO2 25 VBG pO2 92 VBG HCO3 18 L VBG O2 Saturation 97.0 VBG Base Excess -4.0 Sodium 133 L Potassium 4.2 Chloride 95 L Carbon Dioxide 18 L Anion Gap 24 H BUN 76 H Creatinine 6.39 H* Estim Creat Clear Calc 15.1 Estimated GFR 9 Random Glucose 126 H Calcium 8.6 Phosphorus 10.5 H Magnesium 2.7 H Total Bilirubin 4.0 H AST 69 H ALT 35 Alkaline Phosphatase 237 H Total Protein 8.1 H Albumin 3.3 L Discharge Plan Discharge Date/Time: 01/07/23 18:00 Anticipated Discharge Date/Time: 01/07/23 22:36 Patient Disposition: Discharge Diagnosis: Out of Hospital Cardiac Arrest Referrals: Physician,Unknown J [Primary Care Provider] - 1 Week Discharge Medications: No Action Unobtainable Discharge Date/Time: 01/07/23 18:00
[2023-01-08 19:59] LABS: Incubated PTT-LA Mix CORRECTED; Mixing Study - PT 13.2 sec (9.0-11.5); PTT LA 44 sec (< OR = 40); PTT-LA Mix CORRECTED
== END 2023-01-07 18:00 | disposition expired | DRG 816 ==
LOC: HO.ED 07:17 → HO.EDOVER 07:21 → HO.ICU 07:34
PROVIDERS: Internal Medicine Cardiovascular Disease; Internal Medicine Nephrology; Nurse Practitioner Family; Physician Assistant Medical; Admitting Provider Internal Medicine Pulmonary Disease; Emergency Provider Student in an Organized Health Care Education/Training Program; Visit Provider Internal Medicine Pulmonary Disease
DX: T40.5X1A Poisoning by cocaine, accidental (unintentional), initial encounter (principal); J96.01 Acute respiratory failure with hypoxia; J69.0 Pneumonitis due to inhalation of food and vomit; N17.0 Acute kidney failure with tubular necrosis; K72.01 Acute and subacute hepatic failure with coma; I21.4 Non-ST elevation (NSTEMI) myocardial infarction; G93.1 Anoxic brain damage, not elsewhere classified; E87.20 Acidosis, unspecified; K29.71 Gastritis, unspecified, with bleeding; B96.89 Other specified bacterial agents as the cause of diseases classified elsewhere; Z51.5 Encounter for palliative care; D68.4 Acquired coagulation factor deficiency; F10.229 Alcohol dependence with intoxication, unspecified; K70.10 Alcoholic hepatitis without ascites; D69.59 Other secondary thrombocytopenia; E16.2 Hypoglycemia, unspecified; Y90.7 Blood alcohol level of 200-239 mg/100 ml; Z86.74 Personal history of sudden cardiac arrest; Z20.822 Contact with and (suspected) exposure to COVID-19
CPT/HCPCS: 36415; 36600; 70450; 70551; 71045; 76775; 80048; 80053; 80307; 81001; 82040; 82077; 82140; 82272; 82550; 82607; 82746; 82803; 82947; 83605; 83735; 84100; 84484; 85007; 85014; 85018; 85025; 85027; 85610; 85611; 85730; 85732; 86022; 86704; 86706; 87040; 87070; 87077; 87086; 87186; 87205; 87340; 87635; 90935; 90999; 93005; 93306; 93970; 94002; 94003; 94640; 94799; 95816; 99285; C1758; J0171; J0295; J0611; J1643; J1953; J1956; J2185; J2250; J3010; J3475; P9047